=== PATIENT | female | born 1930 | race Caucasian/White ===

== ENCOUNTER 2017-11-04 15:07 | Emergency (ER) | END 2017-11-04 16:55 | disposition home or self-care (01) ==

== ENCOUNTER 2017-12-05 00:19 | Inpatient (IN) | END 2017-12-12 16:35 | DRG 190 ==

== ENCOUNTER 2018-04-02 16:38 | Inpatient (IN) | payer MEDICARE ==
[~2018-04-02] VITALS: Ht 142.2 cm; Wt 58.8 kg
[~2018-04-02 16:38] MED LIST: ALBU18HF INHALATION; ALPR0.5T6 PO; ANAS1TAB PO; ASPI-817 PO; DEXT1DRO6 OP; DOCU100T PO; DONE5TAB7 PO; LISI-313 PO; MEMA10TA PO; METO-448 PO; MONT10TA24 PO; NITR0.4T32 SL; OXYB5TAB7 PO; PANT40TA4 PO; PARO10TA76 PO; Polyethylene Glycol PO; QUET25TA33 PO
[2018-04-02] MEDS ORDERED: SODIUM CHLORIDE 0.9% 1L BAG IV* STA (16:56)
--- NOTE | 2018-04-02 17:09 | ERD ---
ER Documentation Chief Complaint Chief Complaint HPI This is an 88-year-old female that presents to the emergency department brought in by EMS from her boarding care facility for changes in her mental status. [facility] stated the patient appeared more weak. Over the past 24 hours she had a decrease in appetite. She had decreased urinary output. She is taking 25 mg of Seroquel daily for schizoaffective disorder and paranoia which has worsened according to nursing staff. The patient has a history of congesti ve heart failure hypertension and takes aspirin on a daily basis. There is been no signs of mechanical falls or trauma. The patient is no complaint of chest pain. She had no fevers or shaking or chills. Reviewing previous medical records the patient also has a history of COPD and the patient has not had a productive or nonproductive cough. Her son indicates that she has a history of breast carcinoma. She received IV injections at [facility] and last injection was 2 weeks prior to arrival. She is currently taking oral chemotherapy pills. She has not complained of any shortness of breath. She is complaining of right hip pain. She states this is been present since Thursday which was her birthday, 3 days prior to arrival. The patient has a history of dementia so her son indicates she is a poor historian and there is no [facility]. Her son indicated an x-ray had been performed and they were told by the physician that there is no evidence of a hip fracture. However the patient still complains of right hip pain. ROS All systems reviewed and are negative except as per history of present illness. Medications Home Meds Active Scripts Nitroglycerin* (Nitroglycerin* SL) 0.4 Mg Tab.subl, 1 TAB SL Q5M PRN for CHEST PAIN, #30 TAB Prov:PRESLEY MOSQUEDA 12/09/17 Lisinopril* (Lisinopril*) 5 Mg Tablet, 5 MG PO DAILY, #30 TAB Prov:PRESLEY MOSQUEDA 12/09/17 Reported Medications Acetaminophen (MAPAP) 325 Mg Tablet, 650 MG PO NEEDED, TAB 04/02/18 Furosemide* (Furosemide*) 40 Mg Tablet, 40 MG PO DAILY, TAB 04/02/18 Multivitamin/Iron/Folic Acid (Cerovite Advanced Form Tab) 1 Each Tablet, 1 EACH PO DAILY, TAB 04/02/18 Paroxetine Hcl* (Paroxetine*) 40 Mg Tablet, 40 MG PO BID, TAB 04/02/18 Dextran 70/Hypromellose (Artificial Tears) 1 Each Droperette, 1 EACH OP DAILY 11/04/17 Aspirin* (Aspirin* EC) 81 Mg Tablet.dr, 81 MG PO DAILY, TAB 11/04/17 Montelukast Sodium* (Montelukast Sodium*) 10 Mg Tablet, 10 MG PO QHS, #30 TAB 11/04/17 Donepezil* (Donepezil*) 5 Mg Tablet, 5 MG PO DAILY, #30 TAB 11/04/17 Memantine* (Namenda*) 10 Mg Tablet, 10 MG PO DAILY, #30 TAB 11/04/17 Oxybutynin Chloride* (Ditropan*) 5 Mg Tablet, 5 MG PO DAILY, TAB 11/04/17 Pantoprazole* (Pantoprazole*) 40 Mg Tablet.dr, 40 MG PO AC BREAKFAST DINNER, TAB 11/04/17 Anastrozole* (Arimidex*) 1 Mg Tablet, 1 MG PO DAILY, #30 TAB 11/04/17 Docusate Sodium* (Dok*) 100 Mg Tablet, 100 MG PO BID, #60 CAP 11/04/17 Quetiapine Fumarate* (Quetiapine Fumarate*) 25 Mg Tablet, 25 MG PO BID, TAB 11/04/17 Alprazolam* (Alprazolam*) 0.5 Mg Tablet, 0.5 MG PO BID PRN for ANXIETY, TAB 11/04/17 Discontinued Reported Medications [Pantoprazole 10MG] No Conflict Check, 10 MG PO QHS 04/02/18 Paroxetine Hcl* (Paroxetine*) 10 Mg Tablet, 10 MG PO HS, TAB 11/04/17 Discontinued Scripts [Polyethylene Glycol] 17 GM/PKT LIQ No Conflict Check, 17 GM PO BID, #60 PWD Prov:PRESLEY MOSQUEDA 12/09/17 Metoprolol Tartrate* (Lopressor*) 25 Mg Tab, 12.5 MG PO BID, #60 TAB Prov:PRESLEY MOSQUEDA 12/09/17 Albuterol Sulfate* (Ventolin HFA*) 18 Gm Hfa.aer.ad, 2 PUFF INHALATION Q4H, #1 INHALER Prov:LAN TRACY MD 11/04/17 Allergies Allergies: Coded Allergies: epinephrine (Unverified Allergy, Unknown, 04/02/18) Uncoded Allergies: ALLERGEN-EPINEPHRINE (Allergy, Unknown, 04/02/18) PMhx/Soc History of Surgery: Yes (hip sgx 2004) Anesthesia Reaction: No Hx Neurological Disorder: Yes ( CVA 2004; R frontal lobe dementia; Tias) Hx Respiratory Disorders: Yes (COPD) Hx Cardiac Disorders: Yes (Mitrovalvular insufficiency) Hx Psychiatric Problems: No Hx Miscellaneous Medical Probl: Yes Hx Alcohol Use: No Hx Substance Use: No Hx Tobacco Use: No Physical Exam Vitals Vital Signs Date Temp Pulse Resp B/P (MAP) Pulse Ox O2 O2 Flow FiO2 Time Delivery Rate 04/02/18 101.0 103 24 111/92 96 17:00 (98) Physical Exam Constitutional:Well-developed. Cachectic HEENT:Normocephalic. Atraumatic.Pupils were equal round reactive to light. Dry mucous membranes.No tonsillar exudates. Neck: No nuchal rigidity. No lymphadenopathy. No posterior cervical spine tenderness or step-offs. Respiratory: Not using accessory muscles of respiration.Lungs were clear to auscultation bilaterally. No rhonchi. No rales. Mild wheezing on end auscultation bilaterally Cardiovascular: Regular rate regular rhythm.No murmurs. No rubs were appreciated.S1, S2 normal. Distal pulses are palpable 2+ bilaterally. GI: Abdomen was soft. Nontender. Non Distended. No pulsatile abdominal masses or bruits. No rebound. No guarding. Bowel sounds were present and normal. Muscle skeletal: Full range of motion of both the upper and lower extremities bilaterally.muscle atrophy of bilateral lower extremities. No assymetrical calf tenderness or swelling. Lower extremities are of equal length and symmetrical no internal or external rotation Skin: No petechia, no purpura. No lesions on the palms or the soles of the feet. No maculopapular rash. Well-circumscribed abrasion on the scalp behind the left ear NEURO: Patient was alert, awake, orientated x to person place but not to time. Gait not observed as patient is unable to ambulate. No facial droop. Result Diagram: 04/02/18 1709 04/02/18 1709 Results 24 hrs Laboratory Tests Test 04/02/18 17:09 04/02/18 17:29 04/02/18 19:14 White Blood Count 11.8 10^3/ul Red Blood Count 4.04 10^6/ul Hemoglobin 10.9 g/dl Hematocrit 33.7 % Mean Corpuscular Volume 83.4 fl Mean Corpuscular Hemoglobin 27.0 pg Mean Corpuscular 32.3 g/dl Hemoglobin Concent Red Cell Distribution Width 15.7 % Platelet Count 319 10^3/UL Mean Platelet Volume 10.3 fl Immature Granulocytes % 0.900 % Neutrophils % 78.5 % Lymphocytes % 11.1 % Monocytes % 9.0 % Eosinophils % 0.2 % Basophils % 0.3 % Nucleated Red Blood Cells % 0.0 /100WBC Immature Granulocytes # 0.110 10^3/ul Neutrophils # 9.3 10^3/ul Lymphocytes # 1.3 10^3/ul Monocytes # 1.1 10^3/ul Eosinophils # 0.0 10^3/ul Basophils # 0.0 10^3/ul Nucleated Red Blood Cells # 0.0 10^3/ul Prothrombin Time 13.3 Sec Prothrombin Time Ratio 1.0 INR International Normalized Ratio 1.00 Activated Partial Thromboplast 35.3 Sec Time Sodium Level 131 mmol/L Potassium Level 3.6 mmol/L Chloride Level 92 mmol/L Carbon Dioxide Level 32 mmol/L Anion Gap 7 Blood Urea Nitrogen 27 mg/dl Creatinine 0.56 mg/dl Est Glomerular Filtrat Rate mL/min mL/min Glucose Level 129 mg/dl Calcium Level 8.9 mg/dl Total Bilirubin 0.3 mg/dl Direct Bilirubin 0.00 mg/dl Indirect Bilirubin 0.3 mg/dl Aspartate Amino Transf (AST/SGOT) 37 IU/L Alanine < 6 IU/L Aminotransferase (ALT/SGPT) Alkaline Phosphatase 136 IU/L Troponin I < 0.012 ng/ml B-Type Natriuretic Peptide 2510 PG/ML Total Protein 7.4 g/dl Albumin 3.5 g/dl Globulin 3.90 g/dl Albumin/Globulin Ratio 0.89 Amylase Level 61 U/L Lipase 82 U/L POC Venous Lactate 1.7 mmol/L Bedside Urine pH (LAB) 6.0 Bedside Urine Protein (LAB) 1+ Bedside Urine Glucose (UA) Negative Bedside Urine Ketones (LAB) Negative Bedside Urine Blood 2+ Bedside Urine Nitrite (LAB) Positive Bedside Urine Leukocyte Esterase 3+ (L Current Medications Medications Dose Sig/Skyler Start Time Status Last (Trade) Ordered Route PRN Stop Time Admin Dose Reason Admin Sodium 1,800 ml BOLUS OVER 2 04/02/18 DC 04/02/18 Chloride HOURS STAT 16:56 17:42 (NS) IV* 04/02/18 16:58 Sodium 1,000 ml @ Q1H STAT 04/02/18 DC Chloride 1,000 mls/hr IV 18:27 04/02/18 19:26 Morphine 2 mg ONCE STAT 04/02/18 DC 04/02/18 Sulfate IV 18:27 19:13 (morphine) 04/02/18 18:31 Ondansetron 4 mg ONCE STAT 04/02/18 DC 04/02/18 HCl (Zofran IV 18:27 19:13 Inj) 04/02/18 18:31 Ceftriaxone 50 ml @ ONCE ONCE 04/02/18 UNV Sodium 100 mls/hr IVPB 19:30 04/02/18 19:59 Procedures/MDM The patient presented to the emergency department with an acute and persistent change in their mental status. The differential diagnosis is diverse however reversible causes such as hypoglycemia, opiate overdose, thiamine deficiency were immediately considered. The patient was placed on a hospital monitor, continuous pulse oximetry and IV access was established. The patients airway was secure however hypoxic events such as anemia, shock, or severe pulmonary disease were all considered as etiologies in this patients presentation. Circulation assessed with good cap refill and did not require fluids or pressure support. Finger stick for rapid glucose determined to be normal. 12 Lead EKG tracing ordered and reviewed by myself showed: Sinus tachycardia 111 bpm and no arrhythmia. NV interval normal. QRS duration normal. No ST segment elevation No ST segment depression. No changes consistent with acute ischemia. The patient did meet Sirs criteria upon arrival however her lactic acid was normal. Therefore the patient was not septic. She did receive gentle fluid hydration of 30 cc/kg of normal saline and there is no evidence of fluid overload. The patient had a chest radiograph that showed interstitial opacities likely secondary to central pulmonary vascular congestion. However the patient was only in mild respiratory distress and did receive nebulizer treatments of albuterol Atrovent. Lasix was not given due to the fact that the patient was hypotensive. The patient had a urinary tract infection. Blood cultures and urine cultures were obtained. The patient was given IV ceftriaxone. I did feel this was a result of the change in her mental status. She was complaining of diffuse pain and was given 2 mg of morphine intravenously and IV Zofran. I spoke with her son in length who can be reached at [phone]. His name is Marvel. He indicated that his mother several days ago also had a possible mechanical fall. He indicates that she has a history of dementia and there was no witness of this fall but was complaining of right hip pain. He stated radiographic imaging have been obtained at her [facility] facility ordered by the primary care cass moody and was found to be normal. Her gait was unable to be observed in the emergency department she still was complaining of right hip pain and therefore obtained a CT scan of the patient's pelvis which showed no evidence of a pelvic fracture right hip fracture. The patient will be admitted in serious condition under the care of the hospitalist. She will go to the medical floor. Departure Diagnosis: Primary Impression: Failure to thrive Failure to thrive age range: in adult Qualified Codes: R62.7 - Adult failure to thrive Additional Impressions: Urinary tract infection Urinary tract infection type: acute cystitis Hematuria presence: without hematuria Qualified Codes: N30.00 - Acute cystitis without hematuria Sprain of right hip Encounter type: initial encounter Qualified Codes: S73.101A - Unspecified sprain of right hip, initial encounter Acute exacerbation of CHF (congestive heart failure) Heart failure type: unspecified Qualified Codes: I50.9 - Heart failure, unspecified Condition: MAULIK Payan MD Apr 02, 2018 17:09
[2018-04-02] MEDS ORDERED: MULT1TAB49 PO (17:57)
[2018-04-02] MEDS ORDERED: PARO40TA79 PO (17:57)
[2018-04-02] MEDS ORDERED: FURO40TA4 PO (17:58)
[2018-04-02] MEDS ORDERED: ACET325T40 PO (17:59)
[2018-04-02] MEDS ORDERED: PANTOPRAZOLE PO (18:00)
[2018-04-02] MEDS ORDERED: morphine 2 MG INJ IV STA (18:27)
[2018-04-02] MEDS ORDERED: SOD CHLORIDE 0.9% 1,000 ML IV STA (18:27)
[2018-04-02] MEDS ORDERED: ONDANSETRON 4 MG INJ IV STA (18:27)
[2018-04-02] MEDS ORDERED: ALBUTEROL 0.083% (NEB) 2.5 MG/3 ML AMP NEB STA (19:27)
[2018-04-02] MEDS ORDERED: IPRATROPIUM (NEB) 0.5 MG/2.5 ML AMP NEB STA (19:27)
[2018-04-02] MEDS ORDERED: ACETAMINOPHEN 500 MG TAB PO STA (19:28)
[2018-04-02] MEDS ORDERED: CEFTRIAXONE 1 GM/50 ML (PMX) 50 ML IVPB ONE (19:30)
[2018-04-02] MEDS ORDERED: ONDANSETRON 4 MG INJ IV PRN (20:00)
[2018-04-02] MEDS ORDERED: NACL 0.9% 3 ML SYG IV SCH (20:00)
[2018-04-02] MEDS ORDERED: ACETAMINOPHEN 325 MG TAB PO PRN (20:00)
[2018-04-02] MEDS ORDERED: NITROGLYCERIN (SL) 0.4 MG TAB SL PRN (20:00)
[2018-04-02 21:18] VITALS: BP 90/49; PULSE 104; RESP 16
--- NOTE | 2018-04-02 21:46 | NUR ---
clarified w/ DR Clements if he wants to administer the NS1L bolus over 1 hour prior to giving NS1L at 60cc/hr. per Dr clements not to administer the NS bolus. noted and carried out
[2018-04-02] MEDS: SOD CHLORIDE 0.9% 1,000 ML IV SCH (21:54)
--- NOTE | 2018-04-02 22:07 | HP ---
Date/Time of Note Date/Time of Note DATE: 04/02/18 TIME: 22:07 Assessment/Plan VTE Prophylaxis Pharmacological prophylaxis: heparin Lines/Catheters IV Catheter Type (from Nrsg): Saline Lock Assessment/Plan Assessment/Plan 1. Sepsis, secondary to UTI -IV antibiotics, IV fluid -Follow-up culture results 2. Breast cancer with possible metastases to lung: Receiving treatment at [facility] and also oral med -Continue anastrozole 3. Cardiomyopathy with EF of 30%: Continue meds 4. Dementia: -Continue donepezil and Namenda -Speech/swallow eval, then nutrition optimization -Supportive care 5. COPD/asthma: Supplemental oxygen, bronchodilators as needed. 6. Schizophrenia/paranoia: Continue Seroquel Result Diagram: 04/02/18 1709 04/02/18 1709 Results 24hrs Laboratory Tests Test 04/02/18 17:09 04/02/18 17:29 04/02/18 19:14 04/02/18 19:48 White Blood Count 11.8 H Red Blood Count 4.04 L Hemoglobin 10.9 L Hematocrit 33.7 L Mean Corpuscular 83.4 Volume Mean Corpuscular 27.0 L Hemoglobin Mean Corpuscular 32.3 Hemoglobin Concent Red Cell 15.7 H Distribution Width Platelet Count 319 Mean Platelet Volume 10.3 Immature 0.900 H Granulocytes % Neutrophils % 78.5 H Lymphocytes % 11.1 L Monocytes % 9.0 Eosinophils % 0.2 Basophils % 0.3 Nucleated Red Blood 0.0 Cells % Immature 0.110 H Granulocytes # Neutrophils # 9.3 H Lymphocytes # 1.3 Monocytes # 1.1 H Eosinophils # 0.0 Basophils # 0.0 Nucleated Red Blood 0.0 Cells # Prothrombin Time 13.3 Prothrombin Time 1.0 Ratio INR International 1.00 Normalized Ratio Activated 35.3 H Partial Thromboplast Time Sodium Level 131 L Potassium Level 3.6 Chloride Level 92 L Carbon Dioxide Level 32 H Anion Gap 7 Blood Urea Nitrogen 27 H Creatinine 0.56 Est Glomerular Filtrat Rate mL/min Glucose Level 129 Calcium Level 8.9 Total Bilirubin 0.3 Direct Bilirubin 0.00 Indirect Bilirubin 0.3 Aspartate Amino 37 Transf (AST/SGOT) Alanine < 6 L Aminotransferase (AL T/SGPT) Alkaline Phosphatase 136 H Troponin I < 0.012 B-Type Natriuretic 2510 H Peptide Total Protein 7.4 Albumin 3.5 Globulin 3.90 H Albumin/Globulin 0.89 Ratio Amylase Level 61 Lipase 82 POC Venous Lactate 1.7 1.1 Bedside Urine pH 6.0 (LAB) Bedside Urine 1+ H Protein (LAB) Bedside Urine Negative Glucose (UA) Bedside Urine Negative Ketones (LAB) Bedside Urine Blood 2+ H Bedside Urine Positive H Nitrite (LAB) Bedside Urine 3+ H Leukocyte Esterase (L HPI/ROS Admit Date/Time Admit Date/Time Apr 02, 2018 at 19:47 Hx of Present Illness 88-year-old female with a history of breast cancer receiving treatment at [facility] and also on oral meds, lung nodule, cardiomyopathy with EF of 30%, history of dementia, schizophrenia/paranoia, COPD/asthma who was sent from SNF for worsening mentation, poor appetite and decreased urine. Information is mainly gathered from ER physician. When presented to ER, she was febrile with a temperature as high as 101.6, heart rate as high as 112. WBC 11.8. UA consistent with UTI. Chest x-ray shows mildly increased interstitial opacities with small left pleural effusion. Findings are likely sequelae of central venous congestion. PMH/Family/Social Past Medical History Medications Current Medications Ondansetron HCl (Zofran Inj) 4 mg BRIDGE ORDER PRN IV NAUSEA AND/OR VOMITING; Start 04/02/18 at 20:00; Stop 04/03/18 at 19:59 Sodium Chloride 1,000 ml @ 60 mls/hr [id number] IV Last administered on 04/02/18at 21:54; Admin Dose 60 MLS/HR; Start 04/02/18 at 19:47; Stop 04/03/18 at 23:00 IV Flush (NS 3 ml) 3 ml PER PROTOCOL IV ; Start 04/02/18 at 20:00 Acetaminophen (Tylenol Tab) 650 mg Q6H PRN PO PAIN LEVEL 1-3 OR FEVER; Start 04/02/18 at 20:00 Alprazolam (Xanax) 0.5 mg BID PRN PO ANXIETY; Start 04/02/18 at 20:00 Anastrozole (Arimidex) 1 mg DAILY PO ; Start 04/03/18 at 09:00 Aspirin (Halfprin) 81 mg DAILY PO ; Start 04/03/18 at 09:00 Docusate Sodium (Colace) 100 mg BID PO ; Start 04/02/18 at 21:00 Donepezil HCl (Aricept) 5 mg DAILY PO ; Start 04/03/18 at 09:00 Furosemide (Lasix) 40 mg DAILY PO ; Start 04/03/18 at 09:00 Lisinopril (Zestril) 5 mg DAILY PO ; Start 04/03/18 at 09:00 Memantine (Namenda) 10 mg DAILY PO ; Start 04/03/18 at 09:00 Montelukast Sodium (Singulair) 10 mg QHS PO ; Start 04/02/18 at 21:00 Nitroglycerin (Nitroglycerin (Sl Tab) 0.4 Mg) 1 tab Q5M PRN SL CHEST PAIN; Start 04/02/18 at 20:00 Oxybutynin Chloride (Ditropan) 5 mg DAILY PO ; Start 04/03/18 at 09:00 Pantoprazole (Protonix Tab) 40 mg AC BREAKFAST DINNER PO ; Start 04/03/18 at 07:00 Paroxetine HCl (Paxil) 40 mg BID PO ; Start 04/02/18 at 21:00 Quetiapine Fumarate (Seroquel) 25 mg BID PO ; Start 04/02/18 at 21:00 Ceftriaxone Sodium 50 ml @ 100 mls/hr Q24H IVPB ; Start 04/03/18 at 20:00 Coded Allergies: epinephrine (Unverified Allergy, Unknown, 04/02/18) Uncoded Allergies: ALLERGEN-EPINEPHRINE (Allergy, Unknown, 04/02/18) Family History Significant Family History: hypertension Social History Alcohol Use: none Smoking Status: Never smoker Drug Use: none Exam/Review of Systems Vital Signs Vitals Vital Signs Date Temp Pulse Resp B/P (MAP) Pulse Ox O2 O2 Flow FiO2 Time Delivery Rate 04/02/18 98.8 104 16 90/49 (63) 95 21:18 04/02/18 Nasal 2.0 20:46 Cannula 04/02/18 21 19:38 Exam Exam Constitutional: alert, oriented, well developed, other Head: normocephalic, atraumatic Respiratory: normal air movement Cardiovascular: regular rate and rhythm Gastrointestinal: soft Extremities: normal pulses PMH: see HPI PSH: see HPI . SOFIA ORELLANA MD Apr 02, 2018 22:07
[2018-04-02] MEDS: DOCUSATE SODIUM 100 MG CAP PO SCH (22:24)
[2018-04-02] MEDS: QUETIAPINE 25 MG TAB PO SCH (22:24)
[2018-04-02] MEDS: PAROXETINE 20 MG TAB PO SCH (22:24)
[2018-04-02] MEDS: MONTELUKAST 10 MG TAB PO SCH (22:24)
--- NOTE | 2018-04-02 23:00 | NUR ---
pt came from ER at 2100 via bed. alert,oriented x3 ,w/ forgetfulness. pt w/ complaint of pain on right arm , refusing to move right arm.no swelling or wound noted on right arm.pt noted but able to move right hip and right LE. Oriented to staff, call light, bed control, hourly rounding. skin assessment done. Inventory of belongings done. per pt she had a fall a week ago.called and spoke w/ Marvel Lott,pt's son, according to him pt did not have a fall and she was complaining initially of pain on right hip and other medical issues for those reasons she was admitted. but when he came to er he noted she was complaining of right arm pain. Informed him during assessment, pt was noted able to move LE but refusing to move her right arm. per son he does not know since his mom has dementia and at times she is accurate and sometimes not. will continue to monitor
--- NOTE | 2018-04-03 01:55 | NUR ---
pt has an order for CT of pelvis. pt's son ,Marvel ,mention that her mother a week ago was treated for scabies but unknown to him if the treatment was completed. he said to call [facility] where her mother came from to verify.per CT staff they will do the CT after we are able to verify regarding the scabies treatment otherwise,they will have to do thermal cleaning. notified Dr Clements,per MD ok to wait.
[2018-04-03 02:11] VITALS: BP 105/54; PULSE 88; RESP 16
--- NOTE | 2018-04-03 06:42 | NUR ---
pt noted complaining of pain on right arm , refusing to move the affected arm . no swelling or wound noted. Dr Clements made aware, no new orders made. spoke w/ Tamra from [facility]. verified if pt has been treated. Per Tamra , pt came back from [facility] and according to report she was already treated, but she is requesting to test pt for scabies to be sure she was treated before going back to [facility]. According to her pt keeps on scratching herself that is why she got the wound behind her ear, Also , pain on right arm is not new . pt had surgery on right arm and she has chronic pain on right arm. will endorse to dayshift nurse to ask md if he wants to order test for scabies. Also pt still for CT.will endorse accordingly
--- NOTE | 2018-04-03 06:57 | NUR ---
unable to do flu vaccine intervention keith from [facility] does not know if pt received flu vaccine. will endorse to dayshift nurse to ask pt's son, Marvel, if he wants us to give the flu vaccine.
[2018-04-03 07:15] VITALS: BP 122/70; PULSE 109; RESP 18
[2018-04-03] MEDS: PANTOPRAZOLE (EC) 40 MG TAB PO SCH ×2 (08:27→17:21)
[2018-04-03] MEDS: QUETIAPINE 25 MG TAB PO SCH ×2 (08:27→20:53)
[2018-04-03] MEDS: ASPIRIN (EC) 81 MG TAB PO SCH (08:27)
[2018-04-03] MEDS: DONEPEZIL 5 MG TAB PO SCH (08:27)
[2018-04-03] MEDS: MEMANTINE 10 MG TAB PO SCH (08:27)
[2018-04-03] MEDS: DOCUSATE SODIUM 100 MG CAP PO SCH ×2 (08:27→21:00)
[2018-04-03] MEDS: FUROSEMIDE 40 MG TAB PO SCH (08:28)
[2018-04-03] MEDS: LISINOPRIL 5 MG TAB PO SCH (08:28)
[2018-04-03] MEDS: PAROXETINE 20 MG TAB PO SCH ×2 (09:47→20:53)
[2018-04-03] MEDS: OXYBUTYNIN 5 MG TAB PO SCH (09:47)
--- NOTE | 2018-04-03 10:33 | NUR ---
SS Note: SS Consult SWer attempted tp contact pt's son, Marvel Lott , to clarify he and his family members disposition re his mother's Code Status. SWer was unsuccessful in reaching Marvel b/c his voicemail is full thus a message could not be left for him to call back and clarify their disposition. SWer will attempt to meet w/ Marvel should he come to the hospital and visit his mother. CM aware
--- NOTE | 2018-04-03 10:50 | NUR ---
WOUND CONSULTATION NOTE: 88-year-old female admitted for sepsis secondary to UTI with history of Breast cancer with possible metastases to lung, Cardiomyopathy with EF of 30%, Dementia, COPD/asthma, and Schizophrenia/paranoia per record. Patient is alert and oriented x1 and becomes agitated and cries out when attempted to move. There is a questionable right upper extremity soft immobilizer, patient states she broke her arm but no evidence per medical record. Incontinent of bowel and bladder without Galeas catheter. Currently on nasal cannula, requires max assist to turn and reposition. Of note, patient was last seen by [facility] on December 10, 2017 ASSESSMENT: 1. Sacrococcyx - Intact Deep tissue pressure injury with incontinence-associated dermatitis and surrounding stage 1 Pressure Injury in the periwound. Condition is present on admission approx 1.5x6.5x0 2. Multiple bilateral lower extremity including right shoulder blade dry abrasions, unknown etiology. 3. Left Neck, circular dry scabbed full thickness wound with unknown etiology, condition present on admission. 4. Left inner corner of mouth, small abrasion without exudate, unknown etiology 5. Bilateral heels intact RECOMMENDATION: -Cleanse sacrococcyx and periwound with mild soap and water, and pat dry. Apply Venelex ointment BID and cover with foam border dressing -Apply moisture barrier cream after cleansing to perineum after every incontinent episode -Recommend low air loss mattress placement -Apply foam border padding to nasal cannula behind the ears while on oxygen -Continue turning and repositioning Every 2 hours and PRN -Elevate heels on pillows at all times -Keep HOB >30 degrees unless medically contraindicated Patient was seen and evaluated and recommendations discussed with primary Vania OSHEA. RN to obtain additional orders from primary MD Tamara Berrios, MSN, RN, CCRN, C
--- NOTE | 2018-04-03 11:08 | NUR ---
RN Notes: Spoke to Mirza Grier regarding chemo med per son pt's is taking chemo meds for more than 1/1/2 year already said that they go to [facility] for IV and PO chemo meds, per son he's aware and understand the possible S/E. Called [facility] spoke to DAYO Hall aware regarding the initial dose of chemo med in the unit will come for initial dose of the medication. Also follow with mirza Grier re. FLU vaccine said he does not know if pt received FLU Vaccine already said he will call pt's doctor on Thursday to verify it. Will endorse accordingly.
[2018-04-03] MEDS: ANASTROZOLE 1 MG TAB PO SCH (11:17)
[2018-04-03] MEDS: SOD CHLORIDE 0.9% 1,000 ML IV SCH ×2 (12:08→14:25)
[2018-04-03 14:59] VITALS: BP 116/49; PULSE 99; RESP 18
--- NOTE | 2018-04-03 15:01 | NUR ---
RN Notes: Called CT Scan dept spoke to Molly to verify the time of CT Scan order, per Molly due to pt has R/O scabies they need to do precaution since order was routine they will do the urgent order first and will call us once they have time for the test.
[2018-04-03] MEDS: ACETAMINOPHEN 325 MG TAB PO PRN ×2 (15:17→23:06)
--- NOTE | 2018-04-03 15:52 | PN ---
Date/Time of Note Date/Time of Note DATE: 04/03/18 TIME: 15:44 Assessment/Plan VTE [place] [facility] [place]: 7 [place] [facility] [place] Yes Pharmacological prophylaxis: heparin Lines/Catheters IV Catheter Type (from [facility]): Peripheral IV Urinary Cath still in place: No Assessment/Plan Problems: (1) UTI (urinary tract infection) Status: Acute Comment: This is a gram-negative ortega final sensitivity and identification is pending. Please note the patient also had a history of scabies reportedly treated. We will go ahead and repeat the scraping on this. Qualifiers: Urinary tract infection type: acute cystitis Hematuria presence: without hematuria Qualified Codes: N30.00 - Acute cystitis without hematuria (2) Failure to thrive Status: Acute Comment: Improving now that we have her back on medicines and treating the antibiotics Qualifiers: Failure to thrive age range: in adult Qualified Codes: R62.7 - Adult failure to thrive (3) Frontal lobe dementia Status: Chronic Comment: At this point she probably is not able to be maintained in a [id number] needs a higher level of residents. I will have the social sciences lecturer speak with the family (4) Biventricular CHF (congestive heart failure) Status: Chronic Comment: Adequately controlled and compensated at this time (5) Asthma-COPD overlap syndrome Status: Chronic Comment: Maintain medication therapy (6) History of breast cancer in adulthood Status: Chronic Comment: Maintain treatment with aromatase inhibitor Result Diagram: 04/03/18 0432 04/03/18 0432 Results 24hrs Laboratory Tests Test 04/02/18 17:09 04/02/18 17:29 04/02/18 19:14 04/02/18 19:48 White Blood Count 11.8 H Red Blood Count 4.04 L Hemoglobin 10.9 L Hematocrit 33.7 L Mean Corpuscular 83.4 Volume Mean Corpuscular 27.0 L Hemoglobin Mean Corpuscular 32.3 Hemoglobin Concen t Red Cell 15.7 H Distribution Width Platelet Count 319 Mean Platelet 10.3 Volume Immature 0.900 H Granulocytes % Neutrophils % 78.5 H Lymphocytes % 11.1 L Monocytes % 9.0 Eosinophils % 0.2 Basophils % 0.3 Nucleated Red 0.0 Blood Cells % Immature 0.110 H Granulocytes # Neutrophils # 9.3 H Lymphocytes # 1.3 Monocytes # 1.1 H Eosinophils # 0.0 Basophils # 0.0 Nucleated Red 0.0 Blood Cells # Prothrombin Time 13.3 Prothrombin Time 1.0 Ratio INR International 1.00 Normalized Ratio Activated 35.3 H Partial Thrombopl ast Time Sodium Level 131 L Potassium Level 3.6 Chloride Level 92 L Carbon Dioxide 32 H Level Anion Gap 7 Blood Urea 27 H Nitrogen Creatinine 0.56 Est Glomerular Filtrat Rate mL/min Glucose Level 129 Calcium Level 8.9 Total Bilirubin 0.3 Direct Bilirubin 0.00 Indirect 0.3 Bilirubin Aspartate Amino 37 Transf (AST/SGOT) Alanine < 6 L Aminotransferase (ALT/SGPT) Alkaline 136 H Phosphatase Troponin I < 0.012 B-Type 2510 H Natriuretic Peptide Total Protein 7.4 Albumin 3.5 Globulin 3.90 H Albumin/Globulin 0.89 Ratio Amylase Level 61 Lipase 82 POC Venous 1.7 1.1 Lactate Bedside Urine pH 6.0 (LAB) Bedside Urine 1+ H Protein (LAB) Bedside Urine Negative Glucose (UA) Bedside Urine Negative Ketones (LAB) Bedside Urine 2+ H Blood Bedside Urine Positive H Nitrite (LAB) Bedside Urine 3+ H Leukocyte Esteras e (L Test 04/02/18 23:18 04/02/18 23:56 04/03/18 04:32 Lactic Acid Level 1.4 Urine Color YELLOW Urine Clarity SLIGHTLY CLOUDY A Urine pH 6.0 Urine Specific 1.013 [place] Urine Ketones NEGATIVE Urine Nitrite POSITIVE A Urine Bilirubin NEGATIVE Urine NEGATIVE Urobilinogen Urine Leukocyte TRACE A Esterase Urine Microscopic 1 RBC Urine Microscopic 10 H WBC Urine Squamous FEW Epithelial Cells Urine Mucus FEW A Urine Hemoglobin 1+ H Urine Glucose NEGATIVE Urine Total NEGATIVE Protein White Blood Count 9.7 Red Blood Count 3.79 L Hemoglobin 10.1 L Hematocrit 32.1 L Mean Corpuscular 84.7 Volume Mean Corpuscular 26.6 L Hemoglobin Mean Corpuscular 31.5 L Hemoglobin Concen t Red Cell 15.9 H Distribution Width Platelet Count 272 Mean Platelet 10.3 Volume Immature 0.800 H Granulocytes % Neutrophils % 76.5 Lymphocytes % 10.4 L Monocytes % 11.5 H Eosinophils % 0.5 Basophils % 0.3 Nucleated Red 0.0 Blood Cells % Immature 0.080 H Granulocytes # Neutrophils # 7.4 Lymphocytes # 1.0 Monocytes # 1.1 H Eosinophils # 0.1 Basophils # 0.0 Nucleated Red 0.0 Blood Cells # Sodium Level 136 Potassium Level 3.1 L Chloride Level 96 L Carbon Dioxide 31 Level Anion Gap 9 Blood Urea 16 # Nitrogen Creatinine 0.51 Est Glomerular Filtrat Rate mL/min Glucose Level 112 Calcium Level 8.3 L Phosphorus Level 2.7 Magnesium Level 2.1 Total Bilirubin 0.1 L Direct Bilirubin 0.00 Indirect 0.1 Bilirubin Aspartate Amino 21 Transf (AST/SGOT) Alanine 9 L Aminotransferase (ALT/SGPT) Alkaline 119 Phosphatase Total Protein 6.6 Albumin 3.0 L Globulin 3.60 H Albumin/Globulin 0.83 Ratio Subjective 24 Hr Interval Summary Free Text/Dictation Patient has a baseline dementia. Constitutional: no complaints Exam/Review of Systems Vital Signs Vitals Vital Signs Date Temp Pulse Resp B/P (MAP) Pulse Ox O2 O2 Flow FiO2 Time Delivery Rate 04/03/18 100.8 15:17 04/03/18 99 18 116/49 94 Nasal 14:59 (71) Cannula 04/03/18 2.0 09:58 04/02/18 21 19:38 Intake and Output 04/02/18 04/02/18 04/03/18 1515:00 23:00 07:00 IntakeIntake Total 50 ml 420 ml BalanceBalance 50 ml 420 ml Exam Constitutional: alert Neck: supple, non-tender Respiratory: normal air movement, crackles/rales Cardiovascular: regular rate and rhythm, nl pulses, other Medications Medications Current Medications Ondansetron HCl (Zofran Inj) 4 mg BRIDGE ORDER PRN IV NAUSEA AND/OR VOMITING; Start 04/02/18 at 20:00; Stop 04/03/18 at 19:59 Sodium Chloride 1,000 ml @ 60 mls/hr [id number] IV Last administered on 04/03/18at 14:25; Admin Dose 60 MLS/HR; Start 04/02/18 at 19:47; Stop 04/03/18 at 23:00 IV Flush (NS 3 ml) 3 ml PER PROTOCOL IV ; Start 04/02/18 at 20:00 Acetaminophen (Tylenol Tab) 650 mg Q6H PRN PO PAIN LEVEL 1-3 OR FEVER Last administered on 04/03/18at 15:17; Admin Dose 650 MG; Start 04/02/18 at 20:00 Alprazolam (Xanax) 0.5 mg BID PRN PO ANXIETY; Start 04/02/18 at 20:00 Anastrozole (Arimidex) 1 mg DAILY PO Last administered on 04/03/18 11:17; Admin Dose 1 MG; Start 04/03/18 at 09:00 Aspirin (Halfprin) 81 mg DAILY PO Last administered on 04/03/18 08:27; Admin D ose 81 MG; Start 04/03/18 at 09:00 Docusate Sodium (Colace) 100 mg BID PO Last administered on 04/03/18 08:27; Admin Dose 100 MG; Start 04/02/18 at 21:00 Donepezil HCl (Aricept) 5 mg DAILY PO Last administered on 04/03/18 08:27; Admin Dose 5 MG; Start 04/03/18 at 09:00 Furosemide (Lasix) 40 mg DAILY PO Last administered on 04/03/18 08:28; Admin Dose 40 MG; Start 04/03/18 at 09:00 Lisinopril (Zestril) 5 mg DAILY PO Last administered on 04/03/18 08:28; Admin Dose 5 MG; Start 04/03/18 at 09:00 Memantine (Namenda) 10 mg DAILY PO Last administered on 04/03/18 08:27; Admin Dose 10 MG; Start 04/03/18 at 09:00 Montelukast Sodium (Singulair) 10 mg QHS PO Last administered on 04/02/18 22:2 4; Admin Dose 10 MG; Start 04/02/18 at 21:00 Nitroglycerin (Nitroglycerin (Sl Tab) 0.4 Mg) 1 tab Q5M PRN SL CHEST PAIN; Start 04/02/18 at 20:00 Oxybutynin Chloride (Ditropan) 5 mg DAILY PO Last administered on 04/03/18 09:47; Admin Dose 5 MG; Start 04/03/18 at 09:00 Pantoprazole (Protonix Tab) 40 mg AC BREAKFAST DINNER PO Last administered on 04/03/18 08:27; Admin Dose 40 MG; Start 04/03/18 at 07:00 Paroxetine HCl (Paxil) 40 mg BID PO Last administered on 04/03/18 09:47; Admin Dose 40 MG; Start 04/02/18 at 21:00 Quetiapine Fumarate (Seroquel) 25 mg BID PO Last administered on 04/03/18at 08:27; Admin Dose 25 MG; Start 04/02/18 at 21:00 Ceftriaxone Sodium 50 ml @ 100 mls/hr Q24H IVPB ; Start 04/03/18 at 20:00 SUZIE MATHEW MD Apr 03, 2018 15:52
--- NOTE | 2018-04-03 16:14 | NUR ---
RN Notes: Pt has temp of 100.8 Tylenol adm and rechecked still with temp of 101.2, Dr. Kenney made aware per MD pt has Pyelonephritis and will reevaluate pt. Also MD aware regarding possible Scabies and received order. Pt remains alert and verbally responsive, no sob noted, breathing even and unlabored. Cooling measures rendered. Kept clean and comfortable. Will continue to monitor until the end of the shift. Addendum: 04/03/18 at 1737 by ANTONI HOLT RN Pt had CT Pelvis, result still pending. Will endorse to next shift for continuity of care.
[2018-04-03] MEDS ORDERED: FOSFOMYCIN 3 GM PACKET PO ONE (17:00)
[2018-04-03] MEDS ORDERED: PERMETHRIN 5% 60 GM CR TOP ONE (20:00)
[2018-04-03 20:06] VITALS: BP 125/60; PULSE 81; RESP 18
[2018-04-03] MEDS: CEFTRIAXONE 1 GM/50 ML (PMX) 50 ML IVPB SCH (20:51)
[2018-04-03] MEDS: BALSAM PERU/CASTOR OIL 60 GM TUBE TOP SCH (20:53)
[2018-04-03] MEDS: MONTELUKAST 10 MG TAB PO SCH (20:53)
[2018-04-03 22:43] VITALS: Ht 142.2 cm; Wt 58.8 kg
[2018-04-04] MEDS: ALPRAZOLAM 0.25 MG TAB PO PRN (01:00)
[2018-04-04 02:00] VITALS: BP 139/61; PULSE 80; RESP 17
[2018-04-04] MEDS: PANTOPRAZOLE (EC) 40 MG TAB PO SCH ×2 (06:36→16:59)
--- NOTE | 2018-04-04 06:45 | NUR ---
RN Notes Patient had no change in condition overnight. Administered Tylenol x 1 for patient's complaint of right hip pain; patient had no further complaints of pain except when repositioned. CT to pelvis done yesterday is negative for fx. Patient has history of right hip and right shoulder sx. Patient's vital signs, including oxygen saturation on room air, within normal limits. Treatment to sacrococcyx DTI done per orders [facility] Applied Elimite ointment to patient's body for possible scabies, will endorse accordingly to next shift's RN for continuity of care.
--- NOTE | 2018-04-04 07:43 | NUR ---
Was sleeping during shift report. Awake now. No questions or needs except cold. Gave warm blanket. Wants to sleep more. Will assess later.
[2018-04-04 08:06] VITALS: BP 102/67; PULSE 87; RESP 18
[2018-04-04] MEDS: ACETAMINOPHEN 325 MG TAB PO PRN (08:54)
[2018-04-04] MEDS: LISINOPRIL 5 MG TAB PO SCH ×2 (09:00→16:59)
--- NOTE | 2018-04-04 09:15 | NUR ---
Patient is DNR status. Spoke to Marvel, has [place], requested him to send paper works. Gave him [place] fax numbers. He added okay for all his siblings ( Dorita, Gaye, Magno and Cory) to inquire about patient's condition.
[2018-04-04] MEDS: FUROSEMIDE 40 MG TAB PO SCH (09:20)
[2018-04-04] MEDS: PAROXETINE 20 MG TAB PO SCH ×2 (09:20→21:35)
[2018-04-04] MEDS: ASPIRIN (EC) 81 MG TAB PO SCH (09:20)
[2018-04-04] MEDS: DOCUSATE SODIUM 100 MG CAP PO SCH ×2 (09:20→21:35)
[2018-04-04] MEDS: MEMANTINE 10 MG TAB PO SCH (09:20)
[2018-04-04] MEDS: QUETIAPINE 25 MG TAB PO SCH ×2 (09:21→21:35)
[2018-04-04] MEDS: OXYBUTYNIN 5 MG TAB PO SCH (09:21)
[2018-04-04] MEDS: DONEPEZIL 5 MG TAB PO SCH (09:21)
[2018-04-04] MEDS: BALSAM PERU/CASTOR OIL 60 GM TUBE TOP SCH ×2 (09:22→21:35)
[2018-04-04] MEDS: ANASTROZOLE 1 MG TAB PO SCH (09:25)
--- NOTE | 2018-04-04 10:13 | NUR ---
SS Note SWer succeeded in contacting pt's son, Marvel Lott in the presence of CN re POA and Healthcare Decision making process. Marvel informed SWer/CN that a copy of the DPOA was submitted to staff during his mother's previous admission and the Code Status is DNR. Marvel consented to current tx plan and procedures MD's wish to conduct and agreed to provide the CN w/ a copy of the DPOA. CM aware, SWer to remain available for f/u and assistance as needed.
--- NOTE | 2018-04-04 11:36 | NUR ---
Dr. Kenney is here. Advised of complaint of severe right shoulder and right hip pain. Addendum: 04/04/18 at 1145 by LILIYA GREEN RN Also advised that Lucia was held this am. Iu=[id number].
--- NOTE | 2018-04-04 11:54 | PN ---
Date/Time of Note Date/Time of Note DATE: 04/04/18 TIME: 11:47 Assessment/Plan VTE Prophylaxis [place] [facility] [place] risk: 7 SCD applied ([place] [facility] [place] Yes Pharmacological prophylaxis: heparin Lines/Catheters IV Catheter Type (from [facility]): Peripheral IV Urinary Cath still in place: No Assessment/Plan Problems: (1) UTI (urinary tract infection) Status: Acute Comment: Pseudomonas UTI with multiple sensitivities. Complete 1/3-day of IV antibiotic therapy and then changed to orals for outpatient treatment. I will will discharge tomorrow Qualifiers: Urinary tract infection type: acute cystitis Hematuria presence: without hematuria Qualified Codes: N30.00 - Acute cystitis without hematuria (2) Failure to thrive Status: Acute Comment: Improving. Please note because the patient's complaints of pain and get a recheck x-rays of the arm and also of the thyroid to be thorough Qualifiers: Failure to thrive age range: in adult Qualified Codes: R62.7 - Adult failure to thrive (3) Biventricular CHF (congestive heart failure) Status: Chronic Comment: Stable and compensated on medication (4) Asthma-COPD overlap syndrome Status: Chronic Comment: Stable and compensated on medical therapy (5) Frontal lobe dementia Status: Chronic Comment: Noted and stable. (6) Status post closed fracture of hip Status: Chronic Comment: Noted. Result Diagram: 04/03/1843104/03/18 043 Subjective 24 Hr Interval Summary Free Text/Dictation Patient initially asleep but woke up with minimal prodding Constitutional: no complaints Respiratory: no complaints Cardiovascular: no complaints Musculoskeletal: other (Complains of proximal right thigh pain laterally and some right shoulder and neck pain.) Exam/Review of Systems Vital Signs Vitals Vital Signs Date Temp Pulse Resp B/P (MAP) Pulse Ox O2 O2 Flow FiO2 Time Delivery Rate 04/04/18 98.6 87 18 102/67 95 08:06 (79) 04/04/18 Nasal 02:00 Cannula 04/03/18 2.0 22:50 04/02/18 21 19:38 Intake and Output 04/03/18 04/03/18 04/04/18 1515:00 23:00 07:00 IntakeIntake Total 1650 ml 1010 ml 300 ml BalanceBalance 1650 ml 1010 ml 300 ml Exam Constitutional: alert, oriented Respiratory: clear to auscultation, normal air movement Cardiovascular: regular rate and rhythm, nl pulses Extremities: other (Variable pain that sometimes produces and sometimes does not with direct manipulation) Medications Medications Current Medications IV Flush (NS 3 ml) 3 ml PER PROTOCOL IV ; Start 04/02/18 at 20:00 Acetaminophen (Tylenol Tab) 650 mg Q6H PRN PO PAIN LEVEL 1-3 OR FEVER Last administered on 04/04/18 08:54; Admin Dose 650 MG; Start 04/02/18 at 20:00 Alprazolam (Xanax) 0.5 mg BID PRN PO ANXIETY Last administered on 04/04/18 01:00; Admin Dose 0.5 MG; Start 04/02/18 at 20:00 Anastrozole (Arimidex) 1 mg DAILY PO Last administered on 04/04/18 09:25; A dmin Dose 1 MG; Start 04/03/18 at 09:00 Aspirin (Halfprin) 81 mg DAILY PO Last administered on 04/04/18 09:20; Admin Dose 81 MG; Start 04/03/18 at 09:00 Docusate Sodium (Colace) 100 mg BID PO Last administered on 04/04/18 09:20; Admin Dose 100 MG; Start 04/02/18 at 21:00 Donepezil HCl (Aricept) 5 mg DAILY PO Last administered on 04/04/18 09:21; Admin Dose 5 MG; Start 04/03/18 at 09:00 Furosemide (Lasix) 40 mg DAILY PO Last administered on 04/04/18 09:20; Admin Dose 40 MG; Start 04/03/18 at 09:00 Lisinopril (Zestril) 5 mg DAILY PO Last administered on 04/03/18 08:28; Admin Dose 5 MG; Start 04/03/18 at 09:00 Memantine (Namenda) 10 mg DAILY PO Last administered on 04/04/18 09:20; Admin Dose 10 MG; Start 04/03/18 at 09:00 Montelukast Sodium (Singulair) 10 mg QHS PO Last administered on 04/03/18 20:53; Admin Dose 10 MG; Start 04/02/18 at 21:00 Nitroglycerin (Nitroglycerin (Sl Tab) 0.4 Mg) 1 tab Q5M PRN SL CHEST PAIN; Start 04/02/18 at 20:00 Oxybutynin Chloride (Ditropan) 5 mg DAILY PO Last administered on 04/04/18at 09:21; Admin Dose 5 MG; Start 04/03/18 at 09:00 Pantoprazole (Protonix Tab) 40 mg AC BREAKFAST DINNER PO Last administered on 04/04/18at 06:36; Admin Dose 40 MG; Start 04/03/18 at 07:00 Paroxetine HCl (Paxil) 40 mg BID PO Last administered on 04/04/18at 09:20; Admin Dose 40 MG; Start 04/02/18 at 21:00 Quetiapine Fumarate (Seroquel) 25 mg BID PO Last administered on 04/04/18at 09:21; Admin Dose 25 MG; Start 04/02/18 at 21:00 Ceftriaxone Sodium 50 ml @ 100 mls/hr Q24H IVPB Last administered on 04/03/18at 20:51; Admin Dose 100 MLS/HR; Start 04/03/18 at 20:00 Potassium Chloride (Klor-Con 20) 40 meq BID PO ; Start 04/04/18 at 12:00; Stop 04/05/18 at 11:59; Status SUZIE AGUILAR MD Apr 04, 2018 11:54
[2018-04-04 14:29] VITALS: BP 126/65; RESP 16
[2018-04-04] MEDS: POTASSIUM CHLORIDE (SR) 20 MEQ TAB PO SCH ×2 (14:30→21:45)
--- NOTE | 2018-04-04 15:59 | NUR ---
Nutrition Notes: Pt from SNF, goes to [facility] for tx for breast ca. PO poor-fair 25-50%. RD Recommendation: 1. If medically feasible, recommend appetite stimulant
--- NOTE | 2018-04-04 17:27 | NUR ---
End of shift- No fever this shift. Tylenol given once. Has pain in right arm and right hip when moved but then all right. Pending additional xrays.
--- NOTE | 2018-04-04 18:47 | NUR ---
Notifed radiology (Calvin) that xrays still need to be done.
[2018-04-04 20:00] VITALS: BP 102/54; PULSE 86; RESP 18
[2018-04-04] MEDS: CEFTRIAXONE 1 GM/50 ML (PMX) 50 ML IVPB SCH (21:34)
[2018-04-04] MEDS: MONTELUKAST 10 MG TAB PO SCH (21:35)
[2018-04-05 02:00] VITALS: BP 102/60; PULSE 102; RESP 16
--- NOTE | 2018-04-05 05:48 | NUR ---
RN Notes No changes in patient's condition overnight. Patient continues to complain of pain to right hip and shoulder, only upon repositioning. Patient's oxygen saturation remained within normal limits, for patient, on room air. No respiratory distress observed. Repositioned patient every two hours and provided incontinent care as needed. Safety/isolation precautions observed, patient's bed at lowest position with bed alarm activated; hourly rounding provided.
[2018-04-05] MEDS: PANTOPRAZOLE (EC) 40 MG TAB PO SCH ×2 (06:18→17:05)
[2018-04-05] MEDS: LEVOFLOXACIN 500 MG TAB PO SCH (06:18)
[2018-04-05] MEDS: ANASTROZOLE 1 MG TAB PO SCH (08:34)
[2018-04-05] MEDS: DOCUSATE SODIUM 100 MG CAP PO SCH ×2 (08:35→20:48)
[2018-04-05] MEDS: PAROXETINE 20 MG TAB PO SCH ×2 (08:36→20:48)
[2018-04-05] MEDS: ASPIRIN (EC) 81 MG TAB PO SCH (08:36)
[2018-04-05 08:37] VITALS: BP 125/62; PULSE 102; RESP 17
[2018-04-05] MEDS: DONEPEZIL 5 MG TAB PO SCH (08:37)
[2018-04-05] MEDS: QUETIAPINE 25 MG TAB PO SCH ×2 (08:37→20:47)
[2018-04-05] MEDS: OXYBUTYNIN 5 MG TAB PO SCH (08:37)
[2018-04-05] MEDS: MEMANTINE 10 MG TAB PO SCH (08:38)
[2018-04-05] MEDS: FUROSEMIDE 40 MG TAB PO SCH (08:39)
[2018-04-05] MEDS: BALSAM PERU/CASTOR OIL 60 GM TUBE TOP SCH ×2 (08:40→20:48)
[2018-04-05] MEDS: LISINOPRIL 5 MG TAB PO SCH (08:51)
[2018-04-05 14:52] VITALS: BP 99/54; PULSE 100; RESP 18
--- NOTE | 2018-04-05 17:34 | PN ---
Date/Time of Note Date/Time of Note DATE: 04/05/18 TIME: 17:33 Assessment/Plan VTE Prophylaxis Risk score (from [facility])>0 risk: 8 SCD applied (from [facility]): Yes Pharmacological prophylaxis: heparin Lines/Catheters IV [facility] (from [facility] Saline Lock Urinary Cath still in place: No Assessment/Plan Hospital Course SUBJECTIVE: Patient is showing pursed lip breathing. Complains of right hip pain. OBJECTIVE: Physical Exam General: Adequately build 87 year-old female lying in bed in mild respiratory distress. HEENT: Normocephalic, atraumatic. Eyes: Anicteric sclerae, conjunctivae clear. ENT: Nasal septum midline, oral mucosa is dry. Respiratory: Bilaterally diminished breath sounds. Hyperpnea. Pursed lip breathing. Cardiovascular: S1, S2 heard. Regular rate and rhythm. Abdomen: Soft and non-distended. Bowel sounds positive in all 4 quadrants. Genitourinary: Deferred. Extremities: No cyanosis, no edema. Peripheral pulses palpable. Neurologic: The patient is awake and alert. Oriented to place and person. Skin: Normal skin turgor. No skin rashes. Labs & Vitals per chart ASSESSMENT & PLAN 87-year-old female with comorbidities including dementia, asthma, breast cancer who was at a [facility] facility and was brought to the emergency room secondary to sepsis with leukocytosis, febrile illness, and tachycardia, secondary to underlying urinary tract infection. 1. Sepsis with leukocytosis, febrile illness, tachycardia, secondary to underlying urinary tract infection, present on admission. -Continue antimicrobials as per sensitivities. 2. Acute respiratory failure. -Hypoxic. -Most probably secondary to underlying asthma exacerbation. -Continue supplemental oxygen. -Continue inhaled bronchodilators and leukotriene inhibitors. 3. Breast cancer. -Continue Arimidex. 4. Irregular nodule with spiculated borders within the left upper lobe measuring 2.51.8 cm. -Possible neoplastic disease, provided the patient's underlying history of breast cancer. 5. Cardiomyopathy. -Left ventricular ejection fraction of 30% with severe global left ventricular systolic dysfunction and severe right ventricular hypokinesis. -Cardiology following. -Continue CLEMENTINE if BP permits. 6. Diabetes mellitus. -?newly diagnosed. -Hemoglobin A1C from November 2017 6.7. -Random blood glucose within normal limits. 7. Normocytic anemia. -Monitor H&H closely. 8. Dementia. -Continue memantine. 9. Fluids, electrolytes, and nutrition. -Mechanical soft diet. 10. DVT prophylaxis. -SQ heparin. 11. Plan. -Continue supplemental oxygen. -Continue inhaled bronchodilators. -Continue antimicrobials as per sensitivities. -The patient is a DNR/DNI. Plan is to discharge the patient with a [facility] facility. The patient was seen in collaboration with Dr. Leach. The plan of care was explained to the patient's son who was at the bedside. Result Diagram: 04/05/18 0603 04/05/18 0603 Results 24hrs Laboratory Tests Test 04/05/18 06:03 White Blood Count 11.3 H Red Blood Count 3.58 L Hemoglobin 9.7 L Hematocrit 29.8 L Mean Corpuscular Volume 83.2 Mean Corpuscular Hemoglobin 27.1 L Mean Corpuscular Hemoglobin Concent 32.6 Red Cell Distribution Width 15.5 H Platelet Count 329 # Mean Platelet Volume 9.3 Immature Granulocytes % 3.100 H Neutrophils % 74.4 Lymphocytes % 12.0 L Monocytes % 9.1 Eosinophils % 1.0 Basophils % 0.4 Nucleated Red Blood Cells % 0.0 Immature Granulocytes # 0.350 H Neutrophils # 8.4 H Lymphocytes # 1.4 Monocytes # 1.0 H Eosinophils # 0.1 Basophils # 0.1 Nucleated Red Blood Cells # 0.0 Sodium Level 132 L Potassium Level 3.8 Chloride Level 96 L Carbon Dioxide Level 32 H Anion Gap 4 L Blood Urea Nitrogen 8 Creatinine 0.46 Est Glomerular Filtrat Rate mL/min Glucose Level 105 Calcium Level 8.3 L Magnesium Level 1.8 Exam/Review of Systems Vital Signs Vitals Vital Signs Date Temp Pulse Resp B/P (MAP) Pulse Ox O2 O2 Flow FiO2 Time Delivery Rate 04/05/18 98.9 100 18 99/54 (69) 94 Nasal 14:52 Cannula 04/05/18 2.0 08:00 04/02/18 21 19:38 Intake and Output 04/04/18 04/04/18 04/05/18 1515:00 23:00 07:00 IntakeIntake Total 1920 ml 700 ml 500 ml BalanceBalance 1920 ml 700 ml 500 ml Medications Medications Current Medications IV Flush (NS 3 ml) 3 ml PER PROTOCOL IV ; Start 04/02/18 at 20:00 Acetaminophen (Tylenol Tab) 650 mg Q6H PRN PO PAIN LEVEL 1-3 OR FEVER Last administered on 04/04/18 08:54; Admin Dose 650 MG; Start 04/02/18 at 20:00 Alprazolam (Xanax) 0.5 mg BID PRN PO ANXIETY Last administered on 04/04/18 01:00; Admin Dose 0.5 MG; Start 04/02/18 at 20:00 Anastrozole (Arimidex) 1 mg DAILY PO Last administered on 04/05/18 08:34; Admin Dose 1 MG; Start 04/03/18 at 09:00 Aspirin (Halfprin) 81 mg DAILY PO Last administered on 04/05/18 08:36; Admin Dose 81 MG; Start 04/03/18 at 09:00 Docusate Sodium (Colace) 100 mg BID PO Last administered on 04/05/18 08:35; Admin Dose 100 MG; Start 04/02/18 at 21:00 Donepezil HCl (Aricept) 5 mg DAILY PO Last administered on 04/05/18 08:37; Admin Dose 5 MG; Start 04/03/18 at 09:00 Furosemide (Lasix) 40 mg DAILY PO Last administered on 04/05/18 08:39; Admin Dose 40 MG; Start 04/03/18 at 09:00 Lisinopril (Zestril) 5 mg DAILY PO Last administered on 04/05/18 08:51; Admin Dose 5 MG; Start 04/03/18 at 09:00 Memantine (Namenda) 10 mg DAILY PO Last administered on 04/05/18 08:38; Admin Dose 10 MG; Start 04/03/18 at 09:00 Montelukast Sodium (Singulair) 10 mg QHS PO Last administered on 04/04/18 21:35; Admin Dose 10 MG; Start 04/02/18 at 21:00 Nitroglycerin (Nitroglycerin (Sl Tab) 0.4 Mg) 1 tab Q5M PRN SL CHEST PAIN; Start 04/02/18 at 20:00 Oxybutynin Chloride (Ditropan) 5 mg DAILY PO Last administered on 04/05/18 08:37; Admin Dose 5 MG; Start 04/03/18 at 09:00 Pantoprazole (Protonix Tab) 40 mg AC BREAKFAST DINNER PO Last administered on 04/05/18at 17:05; Admin Dose 40 MG; Start 04/03/18 at 07:00 Paroxetine HCl (Paxil) 40 mg BID PO Last administered on 04/05/18at 08:36; Admin Dose 40 MG; Start 04/02/18 at 21:00 Quetiapine Fumarate (Seroquel) 25 mg BID PO Last administered on 04/05/18at 08:37; Admin Dose 25 MG; Start 04/02/18 at 21:00 Ceftriaxone Sodium 50 ml @ 100 mls/hr Q24H IVPB Last administered on 04/04/18at 21:34; Admin Dose 100 MLS/HR; Start 04/03/18 at 20:00; Stop 04/06/18 at 19:59 Levofloxacin (Levaquin) 500 mg DAILY@06 PO Last administered on 04/05/18at 06:18; Admin Dose 500 MG; Start 04/05/18 at 06:00; Stop 04/12/18 at 05:59 IV Flush (NS 10 ml) 10 ml PRN PRN IV FLUSH LINE; Start 04/05/18 at 14:00 PHILIP EUCEDA NP Apr 05, 2018 17:34
--- NOTE | 2018-04-05 17:59 | NUR ---
RN NOTES No acute change noted all throughout the shift. patient is still noted with poor appetite. Patient was seen by RO Mane upon rounds, notified about the situation and recommended if okay to have appetite stimulant. RO Mane ordered Heparin 5000 units SQ every 8 hours, labs in am, and Megace 400 mg suspension BID. Patient was reposition every 2 hours and as needed. Kept comfortable and safe. Wound care done as ordered. Will continue to monitor.
[2018-04-05 20:00] VITALS: BP 144/66; PULSE 111; RESP 19
[2018-04-05] MEDS: CEFTRIAXONE 1 GM/50 ML (PMX) 50 ML IVPB SCH (20:47)
[2018-04-05] MEDS: MEGESTROL (40 MG/ML) 10ML CUP PO SCH (20:47)
[2018-04-05] MEDS: MONTELUKAST 10 MG TAB PO SCH (20:48)
[2018-04-05] MEDS: ACETAMINOPHEN 325 MG TAB PO PRN (20:49)
[2018-04-05] MEDS: HEPARIN 5,000 UNIT/1 ML VIAL SC SCH (21:08)
[2018-04-06 02:00] VITALS: BP 144/69; PULSE 99; RESP 18
[2018-04-06] MEDS: LEVOFLOXACIN 500 MG TAB PO SCH (06:26)
[2018-04-06] MEDS: PANTOPRAZOLE (EC) 40 MG TAB PO SCH ×2 (06:26→17:55)
[2018-04-06] MEDS: HEPARIN 5,000 UNIT/1 ML VIAL SC SCH ×3 (06:28→21:39)
--- NOTE | 2018-04-06 07:53 | NUR ---
RN Notes Patient had no change in condition overnight. Vital signs within normal limits; no respiratory distress, patient on room air. Will endorse to oncoming RN for continuity of care.
[2018-04-06 07:57] VITALS: BP 129/69; PULSE 87; RESP 18
[2018-04-06] MEDS: PAROXETINE 20 MG TAB PO SCH ×2 (09:14→21:36)
[2018-04-06] MEDS: OXYBUTYNIN 5 MG TAB PO SCH (09:14)
[2018-04-06] MEDS: MEMANTINE 10 MG TAB PO SCH (09:14)
[2018-04-06] MEDS: QUETIAPINE 25 MG TAB PO SCH ×2 (09:14→21:36)
[2018-04-06] MEDS: DOCUSATE SODIUM 100 MG CAP PO SCH ×2 (09:14→21:00)
[2018-04-06] MEDS: MEGESTROL (40 MG/ML) 10ML CUP PO SCH ×2 (09:14→21:36)
[2018-04-06] MEDS: DONEPEZIL 5 MG TAB PO SCH (09:14)
[2018-04-06] MEDS: ASPIRIN (EC) 81 MG TAB PO SCH (09:15)
[2018-04-06] MEDS: ANASTROZOLE 1 MG TAB PO SCH (09:15)
[2018-04-06] MEDS: FUROSEMIDE 40 MG TAB PO SCH (09:15)
[2018-04-06] MEDS: LISINOPRIL 5 MG TAB PO SCH (09:16)
[2018-04-06] MEDS: BALSAM PERU/CASTOR OIL 60 GM TUBE TOP SCH ×2 (09:19→21:37)
--- NOTE | 2018-04-06 10:43 | NUR ---
SNF PLACEMENT: [facility] FAXED CLINICAL INFORMATION [facility] ACCEPTANCE MEDICARE NEEDS 3 QUALIFYING DAYS FOR SNF PLACEMENT/ Addendum: 04/06/18 at 1044 by KATHE DEL ROSARIO CM Amended: Links added.
[2018-04-06] MEDS: ACETAMINOPHEN 325 MG TAB PO PRN (11:14)
--- NOTE | 2018-04-06 13:26 | PN ---
Date/Time of Note Date/Time of Note DATE: 04/06/18 TIME: 13:24 Assessment/Plan VTE Prophylaxis Risk score (from Ns)>0 risk: 3 SCD applied (from Ns): Yes Pharmacological prophylaxis: heparin Lines/Catheters [facility]from [facility] Saline Lock Urinary Cath still in place: No Assessment/Plan Hospital Course SUBJECTIVE: Complains of right hip pain. OBJECTIVE: Physical Exam General: Adequately build 87 year-old female lying in bed in mild respiratory distress. HEENT: Normocephalic, atraumatic. Eyes: Anicteric sclerae, conjunctivae clear. ENT: Nasal septum midline, oral mucosa is dry. Respiratory: Bilaterally diminished breath sounds. Hyperpnea. Pursed lip breathing. Cardiovascular: S1, S2 heard. Regular rate and rhythm. Abdomen: Soft and non-distended. Bowel sounds positive in all 4 quadrants. Genitourinary: Deferred. Extremities: No cyanosis, no edema. Peripheral pulses palpable. Neurologic: The patient is awake and alert. Oriented to place and person. Skin: Normal skin turgor. No skin rashes. Labs & Vitals per chart ASSESSMENT & PLAN 87-year-old female with comorbidities including dementia, asthma, breast cancer who was at a [facility] facility and was brought to the emergency room secondary to sepsis with leukocytosis, febrile illness, and tachycardia, secondary to underlying urinary tract infection. 1. Sepsis with leukocytosis, febrile illness, tachycardia, secondary to underlying urinary tract infection, present on admission. -Continue antimicrobials as per sensitivities. 2. Acute respiratory failure. -Hypoxic. -Most probably secondary to underlying asthma exacerbation. -Continue supplemental oxygen. -Continue inhaled bronchodilators and leukotriene inhibitors. 3. Breast cancer. -Continue Arimidex. 4. Irregular nodule with spiculated borders within the left upper lobe measuri ng 2.51.8 cm. -Possible neoplastic disease, provided the patient's underlying history of breast cancer. 5. Cardiomyopathy. -Left ventricular ejection fraction of 30% with severe global left ventr icular systolic dysfunction and severe right ventricular hypokinesis. -Cardiology following. -Continue ACEI if BP permits. 6. Pre-diabetes. -Hemoglobin A1C 5.9. -Random blood glucose within normal limits. 7. Normocytic anemia. -Monitor H&H closely. 8. Dementia. -Continue memantine. 9. Fluids, electrolytes, and nutrition. -Mechanical soft diet. 10. Moderate protein-calorie malnutrition. -Dietary supplements. 10. DVT prophylaxis. -SQ heparin. 11. Plan. -Continue supplemental oxygen. -Continue inhaled bronchodilators. -Continue antimicrobials as per sensitivities. -The patient is a DNR/DNI. Plan is to discharge the patient with a long-term facility. The patient was seen in collaboration with Dr. Leach. Result Diagram: 04/06/18 0602 04/06/18 0601 Results 24hrs Laboratory Tests Test 04/06/18 06:01 04/06/18 06:02 Sodium Level 134 L Potassium Level 3.7 Chloride Level 93 L Carbon Dioxide Level 36 H Anion Gap 5 Blood Urea Nitrogen 9 Creatinine 0.46 Est Glomerular Filtrat Rate mL/min Glucose Level 121 Hemoglobin A1c 5.9 Calcium Level 8.6 Phosphorus Level 3.4 Magnesium Level 1.9 White Blood Count 11.3 H Red Blood Count 3.68 L Hemoglobin 10.0 L Hematocrit 30.3 L Mean Corpuscular Volume 82.3 Mean Corpuscular Hemoglobin 27.2 L Mean Corpuscular Hemoglobin Concent 33.0 Red Cell Distribution Width 15.5 H Platelet Count 388 Mean Platelet Volume 9.3 Immature Granulocytes % 2.200 H Neutrophils % 75.5 Lymphocytes % 12.0 L Monocytes % 8.1 Eosinophils % 1.9 Basophils % 0.3 Nucleated Red Blood Cells % 0.0 Immature Granulocytes # 0.250 H Neutrophils # 8.5 H Lymphocytes # 1.4 Monocytes # 0.9 Eosinophils # 0.2 Basophils # 0.0 Nucleated Red Blood Cells # 0.0 Exam/Review of Systems Vital Signs Vitals Vital Signs Date Temp Pulse Resp B/P (MAP) Pulse Ox O2 O2 Flow FiO2 Time Delivery Rate 04/06/18 98.2 87 18 129/69 96 07:57 (89) 04/06/18 2.0 00:23 04/05/18 Nasal 21:38 Cannula 04/02/18 21 19:38 Intake and Output 04/05/18 04/05/18 04/06/18 1515:00 23:00 07:00 IntakeIntake Total 340 ml 50 ml BalanceBalance 340 ml 50 ml Medications Medications Current Medications IV Flush (NS 3 ml) 3 ml PER PROTOCOL IV ; Start 04/02/18 at 20:00 Acetaminophen (Tylenol Tab) 650 mg Q6H PRN PO PAIN LEVEL 1-3 OR FEVER Last administered on 04/06/18 11:14; Admin Dose 650 MG; Start 04/02/18 at 20:00 Alprazolam (Xanax) 0.5 mg BID PRN PO ANXIETY Last administered on 04/04/18 01:00; Admin Dose 0.5 MG; Start 04/02/18 at 20:00 Anastrozole (Arimidex) 1 mg DAILY PO Last administered on 04/06/18 09:15; Admin Dose 1 MG; Start 04/03/18 at 09:00 Aspirin (Halfprin) 81 mg DAILY PO Last administered on 04/06/18 09:15; Admin Dose 81 MG; Start 04/03/18 at 09:00 Docusate Sodium (Colace) 100 mg BID PO Last administered on 04/06/18 09:14; Admin Dose 100 MG; Start 04/02/18 at 21:00 Donepezil HCl (Aricept) 5 mg DAILY PO Last administered on 04/06/18 09:14; Admin Dose 5 MG; Start 04/03/18 at 09:00 Furosemide (Lasix) 40 mg DAILY PO Last administered on 04/06/18 09:15; Admin Dose 40 MG; Start 04/03/18 at 09:00 Lisinopril (Zestril) 5 mg DAILY PO Last administered on 04/06/18 09:16; Admin Dose 5 MG; Start 04/03/18 at 09:00 Memantine (Namenda) 10 mg DAILY PO Last administered on 04/06/18 09:14; Admin Dose 10 MG; Start 04/03/18 at 09:00 Montelukast Sodium (Singulair) 10 mg QHS PO Last administered on 04/05/18 20:48; Admin Dose 10 MG; Start 04/02/18 at 21:00 Nitroglycerin (Nitroglycerin (Sl Tab) 0.4 Mg) 1 tab Q5M PRN SL CHEST PAIN; Start 04/02/18 at 20:00 Oxybutynin Chloride (Ditropan) 5 mg DAILY PO Last administered on 04/06/18 09:14; Admin Dose 5 MG; Start 04/03/18 at 09:00 Pantoprazole (Protonix Tab) 40 mg AC BREAKFAST DINNER PO Last administered on 04/06/18 06:26; Admin Dose 40 MG; Start 04/03/18 at 07:00 Paroxetine HCl (Paxil) 40 mg BID PO Last administered on 04/06/18 09:14; Admin Dose 40 MG; Start 04/02/18 at 21:00 Quetiapine Fumarate (Seroquel) 25 mg BID PO Last administered on 04/06/18 09:14; Admin Dose 25 MG; Start 04/02/18 at 21:00 Ceftriaxone Sodium 50 ml @ 100 mls/hr Q24H IVPB Last administered on 04/05/18at 20:47; Admin Dose 100 MLS/HR; Start 04/03/18 at 20:00; Stop 04/06/18 at 19:59 Levofloxacin (Levaquin) 500 mg DAILY@06 PO Last administered on 04/06/18 06:26; Admin Dose 500 MG; Start 04/05/18 at 06:00; Stop 04/12/18 at 05:59 IV Flush (NS 10 ml) 10 ml PRN PRN IV FLUSH LINE; Start 04/05/18 at 14:00 Megestrol Acetate (Megace Susp) 400 mg BID PO Last administered on 04/06/18 09:14; Admin Dose 400 MG; Start 04/05/18 at 21:00 Heparin Sodium (Porcine) (Heparin (5000 Units/1ml)) 5,000 unit Q8 SC Last administered on 04/06/18 06:28; Admin Dose 5,000 UNIT; Start 04/05/18 at 22:00 PHILIP EUCEDA NP Apr 06, 2018 13:26
[2018-04-06 14:46] VITALS: BP 126/62; PULSE 68; RESP 16
--- NOTE | 2018-04-06 15:22 | NUR ---
SS Note: F/U RADAMES received order to clarify who is the DPOA and pt's code status. SW familiar with pt and her family from previous admission on 12/05/17. At that time pt's son Magno Lott and Marvel Lott were both involved in decision making. SW contacted both sons today. Magno stated he is the DPOA for financial and Marvel is the DPOA for healthcare, as he lives closest to the pt. Although, Marvel is the DPOA he communicates with Magno Addendum: 04/06/18 at 1535 by JUAN BOLIVAR and they make medical decisions together. Pt's son Magno lives in [place]. Magno agreed to fax over a copy of DPOA paperwork to include in pt's record. Both sons agree pt's code status is DNR. RADAMES encouraged sonMarvel to complete POLST and to discuss form with attending MD. RADAMES left form in pt's room for their completion. RADAMES notified RN. Pt came from a [facility] facility, however, family feels pt requires extensive care/support at this time and are requesting SNF placement. Please see CM notes regarding SNF placement.
--- NOTE | 2018-04-06 18:54 | NUR ---
All needs met.no acute events.turned the patient q 2 hours.gave tylenol for pain .call light within reach.bed alarm on.she is resting comfortably in bed.
[2018-04-06 20:00] VITALS: BP_SYST 132; BP_SYST 151; BP_DIAS 63; BP_DIAS 67; PULSE 94; PULSE 98; RESP 18
[2018-04-06] MEDS: MONTELUKAST 10 MG TAB PO SCH (21:37)
[2018-04-07 02:00] VITALS: BP 109/71; PULSE 94; RESP 18
--- NOTE | 2018-04-07 06:03 | NUR ---
Pt is alert and oriented x2-3, forgetful. Pt complains of pain on her right side (arm and leg) of the body; repositioning helping with pain management. Pt was able to swallow her meds one by one. No signs of distress noted. Vital signs stable. Will continue monitoring pt.
[2018-04-07] MEDS: LEVOFLOXACIN 500 MG TAB PO SCH (06:40)
[2018-04-07] MEDS: PANTOPRAZOLE (EC) 40 MG TAB PO SCH ×2 (06:41→17:54)
[2018-04-07] MEDS: HEPARIN 5,000 UNIT/1 ML VIAL SC SCH ×3 (06:43→20:54)
[2018-04-07 08:00] VITALS: BP 126/65; PULSE 111; RESP 18
[2018-04-07] MEDS: DOCUSATE SODIUM 100 MG CAP PO SCH ×2 (08:04→20:53)
[2018-04-07] MEDS: FUROSEMIDE 40 MG TAB PO SCH (08:04)
[2018-04-07] MEDS: MEGESTROL (40 MG/ML) 10ML CUP PO SCH ×2 (08:04→20:54)
[2018-04-07] MEDS: ASPIRIN (EC) 81 MG TAB PO SCH (08:04)
[2018-04-07] MEDS: PAROXETINE 20 MG TAB PO SCH ×2 (08:04→20:53)
[2018-04-07] MEDS: MEMANTINE 10 MG TAB PO SCH (08:04)
[2018-04-07] MEDS: QUETIAPINE 25 MG TAB PO SCH ×2 (08:05→20:53)
[2018-04-07] MEDS: LISINOPRIL 5 MG TAB PO SCH (08:05)
[2018-04-07] MEDS: OXYBUTYNIN 5 MG TAB PO SCH (08:05)
[2018-04-07] MEDS: DONEPEZIL 5 MG TAB PO SCH (08:06)
[2018-04-07] MEDS: ANASTROZOLE 1 MG TAB PO SCH (08:06)
[2018-04-07] MEDS: BALSAM PERU/CASTOR OIL 60 GM TUBE TOP SCH ×2 (08:36→20:55)
[2018-04-07 09:11] VITALS: BP 175/75; PULSE 82; RESP 18
--- NOTE | 2018-04-07 11:19 | NUR ---
SS Note: AHCD PLACED IN PT'S CHART SW received a copy of pt's AHCD from son Magno. SW placed AHCD it in pt's chart. Pt's son, Marvel Lott , is the designated first surrogate decision maker and son Donovan Lott is the designated secondary surrogate decision maker.
--- NOTE | 2018-04-07 13:54 | PN ---
Date/Time of Note Date/Time of Note DATE: 04/07/18 TIME: 13:51 Assessment/Plan VTE Prophylaxis Risk score (from Ns)>0 risk: 8 SCD applied (from Ns): Yes Pharmacological prophylaxis: heparin Lines/Catheters IV Catheter Type (from [facility]): Saline Lock Urinary Cath still in place: No Assessment/Plan Hospital Course SUBJECTIVE: Complains of right hip pain. OBJECTIVE: Physical Exam General: Adequately build 87 year-old female lying in bed in mild respiratory distress. HEENT: Normocephalic, atraumatic. Eyes: Anicteric sclerae, conjunctivae clear. ENT: Nasal septum midline, oral mucosa is dry. Respiratory: Bilaterally diminished breath sounds. Cardiovascular: S1, S2 heard. Regular rate and rhythm. Abdomen: Soft and non-distended. Bowel sounds positive in all 4 quadrants. Genitourinary: Deferred. Extremities: No cyanosis, no edema. Peripheral pulses palpable. Neurologic: The patient is awake and alert. Oriented to place and person. Skin: Normal skin turgor. No skin rashes. Labs & Vitals per chart ASSESSMENT & PLAN 87-year-old female with comorbidities including dementia, asthma, breast cancer who was at a [facility] and was brought to the emergency room secondary to sepsis with leukocytosis, febrile illness, and tachycardia, secondary to underlying urinary tract infection. 1. Sepsis with leukocytosis, febrile illness, tachycardia, secondary to underlying urinary tract infection, present on admission. -Continue antimicrobials as per sensitivities. 2. Acute respiratory failure. -Hypoxic. -Most probably secondary to underlying asthma exacerbation. -Continue supplemental oxygen. -Continue inhaled bronchodilators and leukotriene inhibitors. 3. Breast cancer. -Continue Arimidex. 4. Irregular nodule with spiculated borders within the left upper lobe measuring 2.51.8 cm. -Possible neoplastic disease, provided the patient's underlying history of breast cancer. 5. Cardiomyopathy. -Left ventricular ejection fraction of 30% with severe global left ventricular systolic dysfunction and severe right ventricular hypokinesis. -Cardiology following. -Continue ACEI if BP permits. 6. Pre-diabetes. -Hemoglobin A1C 5.9. -Random blood glucose within normal limits. 7. Normocytic anemia. -Monitor H&H closely. 8. Dementia. -Continue memantine. 9. Fluids, electrolytes, and nutrition. -Mechanical soft diet. 10. Moderate protein-calorie malnutrition. -Dietary supplements. 10. DVT prophylaxis. -SQ heparin. 11. Plan. -Continue supplemental oxygen. -Continue inhaled bronchodilators. -Continue antimicrobials as per sensitivities. -The patient is a DNR/DNI. Plan is to discharge the patient to a [facility] facility once a SNF is available. Case management working with family to accommodate the family's demands. The patient was seen in collaboration with Dr. Leach. Result Diagram: 04/06/18 0602 04/06/18 0601 Exam/Review of Systems Vital Signs Vitals Vital Signs Date Temp Pulse Resp B/P (MAP) Pulse Ox O2 O2 Flow FiO2 Time Delivery Rate 04/07/18 98.2 82 18 175/75 94 09:11 (108) 04/06/18 2.0 00:23 04/05/18 Nasal 21:38 Cannula Intake and Output 04/06/18 04/06/18 04/07/18 1515:00 23:00 07:00 IntakeIntake Total 240 ml 480 ml BalanceBalance 240 ml 480 ml Medications Medications Current Medications IV Flush (NS 3 ml) 3 ml PER PROTOCOL IV ; Start 04/02/18 at 20:00 Acetaminophen (Tylenol Tab) 650 mg Q6H PRN PO PAIN LEVEL 1-3 OR FEVER Last administered on 04/06/18at 11:14; Admin Dose 650 MG; Start 04/02/18 at 20:00 Alprazolam (Xanax) 0.5 mg BID PRN PO ANXIETY Last administered on 04/04/18at 01:00; Admin Dose 0.5 MG; Start 04/02/18 at 20:00 Anastrozole (Arimidex) 1 mg DAILY PO Last administered on 04/07/18at 08:06; Admin Dose 1 MG; Start 04/03/18 at 09:00 Aspirin (Halfprin) 81 mg DAILY PO Last administered on 04/07/18 08:04; Admin Dose 81 MG; Start 04/03/18 at 09:00 Docusate Sodium (Colace) 100 mg BID PO Last administered on 04/07/18 08:04; Admin Dose 100 MG; Start 04/02/18 at 21:00 Donepezil HCl (Aricept) 5 mg DAILY PO Last administered on 04/07/18at 08:06; Adm in Dose 5 MG; Start 04/03/18 at 09:00 Furosemide (Lasix) 40 mg DAILY PO Last administered on 04/07/18 08:04; Admin Dose 40 MG; Start 04/03/18 at 09:00 Lisinopril (Zestril) 5 mg DAILY PO Last administered on 04/07/18 08:05; Admin Dose 5 MG; Start 04/03/18 at 09:00 Memantine (Namenda) 10 mg DAILY PO Last administered on 04/07/18 08:04; Admin Dose 10 MG; Start 04/03/18 at 09:00 Montelukast Sodium (Singulair) 10 mg QHS PO Last administered on 04/06/18 21:37; Admin Dose 10 MG; Start 04/02/18 at 21:00 Nitroglycerin (Nitroglycerin (Sl Tab) 0.4 Mg) 1 tab Q5M PRN SL CHEST PAIN; Start 04/02/18 at 20:00 Oxybutynin Chloride (Ditropan) 5 mg DAILY PO Last administered on 04/07/18 08:05; Admin Dose 5 MG; Start 04/03/18 at 09:00 Pantoprazole (Protonix Tab) 40 mg AC BREAKFAST DINNER PO Last administered on 04/07/18 06:41; Admin Dose 40 MG; Start 04/03/18 at 07:00 Paroxetine HCl (Paxil) 40 mg BID PO Last administered on 04/07/18 08:04; Admin Dose 40 MG; Start 04/02/18 at 21:00 Quetiapine Fumarate (Seroquel) 25 mg BID PO Last administered on 04/07/18 08:05; Admin Dose 25 MG; Start 04/02/18 at 21:00 Levofloxacin (Levaquin) 500 mg DAILY@06 PO Last administered on 04/07/18 06:40; Admin Dose 500 MG; Start 04/05/18 at 06:00; Stop 04/12/18 at 05:59 IV Flush (NS 10 ml) 10 ml PRN PRN IV FLUSH LINE; Start 04/05/18 at 14:00 Megestrol Acetate (Megace Susp) 400 mg BID PO Last administered on 04/07/18 08:04; Admin Dose 400 MG; Start 04/05/18 at 21:00 Heparin Sodium (Porcine) (Heparin (5000 Units/1ml)) 5,000 unit Q8 SC Last administered on 04/07/18at 13:48; Admin Dose 5,000 UNIT; Start 04/05/18 at 22:00 PHILIP EUCEDA NP Apr 07, 2018 13:54
[2018-04-07] MEDS ORDERED: LEVO500T48 PO (13:55)
[2018-04-07] MEDS ORDERED: MEGE400O4 PO (13:55)
[2018-04-07 14:44] VITALS: BP 114/55; PULSE 114; RESP 18
--- NOTE | 2018-04-07 16:35 | NUR ---
DC UPDATE: PATIENT'S SONS WANTED PATIENT TO GO TO [facility]; DENIED BALDEV GRIFFIN DENIED; REASON MEDICARE SNF DAYS ONLY 24 DAYS LEFT; NO SECONDARY INSURANCE. ALSO HX OF SCHIZOPHRENIA AND PARANOIA. CALL FROM SON BILLY STARK, WANTED TO TALK TO FINANCIAL COUNSELLOR RE SECONDARY INSURANCE FOR [employer] CARE IN A FACILITY. PATIENT'S SONS DOES NOT WANT TO TRANSFER TO ANY SNF EXCEPT [facility]. PROVIDED HIM TEL # OF [facility]ILL [facility]WKINS. Addendum: 04/07/18 at 1641 by [email or web address] Amended: Links added. Addendum: 04/08/18 at 1659 by [employer] SPOKE TO BILLY TO TAKE A LOOK @ [facility] IN [place] . FF UP BILLY IF AGREE TO RREFER MOM TO [facility].
--- NOTE | 2018-04-07 16:54 | NUR ---
Informed Matthew Mane PREVENTIVE MEDICINE PHYSICIAN of the vital signs with no new orders. Will continue to monitor
--- NOTE | 2018-04-07 17:30 | NUR ---
NURSE NOTES; patient remained stable throughout the shift with no acute changes noted. no changes in LOC or mentation. No SOB or distress. vital signs WNL. IV patent and intact. on low air loss mattress, wound care treatment done, tolerated well. all due medications were given, tolerated well. safety precautions observed, hourly rounding done, bed alarm and bed brakes on for safety. Call light and telephone within reach at all times. Will continue to monitor. Will endorse accordingly to next shift for continuity of care. Addendum: 04/07/18 at 1753 by BOSSMAN BARRY RN patient continued to be placed on isolation (contact) for scabies but patient has been treated.
[2018-04-07 20:00] VITALS: BP 105/72; PULSE 97; RESP 18
[2018-04-07] MEDS: MONTELUKAST 10 MG TAB PO SCH (20:54)
[2018-04-08 02:00] VITALS: BP_SYST 114; BP_SYST 131; BP_DIAS 62; BP_DIAS 67; PULSE 86; PULSE 92; RESP 17
[2018-04-08] MEDS: LEVOFLOXACIN 500 MG TAB PO SCH (06:04)
[2018-04-08] MEDS: HEPARIN 5,000 UNIT/1 ML VIAL SC SCH ×3 (06:04→21:57)
[2018-04-08] MEDS: PANTOPRAZOLE (EC) 40 MG TAB PO SCH ×2 (06:04→18:38)
[2018-04-08] MEDS: FUROSEMIDE 40 MG TAB PO SCH (08:55)
[2018-04-08] MEDS: ASPIRIN (EC) 81 MG TAB PO SCH (08:55)
[2018-04-08] MEDS: ANASTROZOLE 1 MG TAB PO SCH (08:55)
[2018-04-08] MEDS: MEGESTROL (40 MG/ML) 10ML CUP PO SCH ×2 (08:55→21:56)
[2018-04-08] MEDS: LISINOPRIL 5 MG TAB PO SCH (08:56)
[2018-04-08] MEDS: QUETIAPINE 25 MG TAB PO SCH ×2 (08:56→21:56)
[2018-04-08] MEDS: DOCUSATE SODIUM 100 MG CAP PO SCH ×2 (08:56→21:56)
[2018-04-08] MEDS: PAROXETINE 20 MG TAB PO SCH ×2 (08:56→21:56)
[2018-04-08] MEDS: MEMANTINE 10 MG TAB PO SCH (08:56)
[2018-04-08] MEDS: DONEPEZIL 5 MG TAB PO SCH (08:56)
[2018-04-08] MEDS: OXYBUTYNIN 5 MG TAB PO SCH (08:57)
[2018-04-08] MEDS: BALSAM PERU/CASTOR OIL 60 GM TUBE TOP SCH ×2 (11:03→21:57)
--- NOTE | 2018-04-08 13:12 | PN ---
Date/Time of Note Date/Time of Note DATE: 04/08/18 TIME: 13:10 Assessment/Plan VTE Prophylaxis Risk score (from Ns)>0 risk: 7 SCD applied (from Ns): Yes Pharmacological prophylaxis: heparin Lines/Catheters IV Catheter Type (from [facility]): Saline Lock Urinary Cath still in place: No Assessment/Plan Hospital Course General: Adequately build 87 year-old female lying in bed in mild respiratory distress. HEENT: Normocephalic, atraumatic. Eyes: Anicteric sclerae, conjunctivae clear. ENT: Nasal septum midline, oral mucosa is dry. Respiratory: Bilaterally diminished breath sounds. Cardiovascular: S1, S2 heard. Regular rate and rhythm. Abdomen: Soft and non-distended. Bowel sounds positive in all 4 quadrants. Genitourinary: Deferred. Extremities: No cyanosis, no edema. Peripheral pulses palpable. Neurologic: The patient is awake and alert. Oriented to place and person. Skin: Normal skin turgor. No skin rashes. Labs & Vitals per chart ASSESSMENT & PLAN 87-year-old female with comorbidities including dementia, asthma, breast cancer who was at a [facility] facility and was brought to the emergency room secondary to sepsis with leukocytosis, febrile illness, and tachycardia, secondary to underlying urinary tract infection. 1. Sepsis with leukocytosis, febrile illness, tachycardia, secondary to underlying urinary tract infection, present on admission. -Complete levaquin course Asthma/COPD; - Brochodilators. Breathing likely at basline. Occasional purse lips 3. Breast cancer. -Continue Arimidex. 4. Irregular nodule with spiculated borders within the left upper lobe measuring 2.51.8 cm. -Possible neoplastic disease, provided the patient's underlying history of breast cancer. 5. Cardiomyopathy. -Left ventricular ejection fraction of 30% with severe global left ventricular systolic dysfunction and severe right ventricular hypokinesis. -Cardiology following. -Continue ACEI if BP permits. 6. Pre-diabetes. -Hemoglobin A1C 5.9. -Random blood glucose within normal limits. 7. Normocytic anemia. -Monitor H&H closely. 8. Dementia. -Continue memantine. 9. Fluids, electrolytes, and nutrition. -Mechanical soft diet. 10. Moderate protein-calorie malnutrition. -Dietary supplements. 10. DVT prophylaxis. -SQ heparin. 11. Plan. -Continue supplemental oxygen. -Continue inhaled bronchodilators. -Continue antimicrobials as per sensitivities. -The patient is a DNR/DNI. Plan is to discharge the patient to a custodial facility once a SNF is available. Case management working with family to accommodate the family's demands. Result Diagram: 04/06/18 0602 04/06/18 0601 Subjective 24 Hr Interval Summary Free Text/Dictation Comfortable aside from "skin cancer" lesion she has behind her L ear. Says she needs it removed Exam/Review of Systems Exam Vitals Vital Signs Date Temp Pulse Resp B/P (MAP) Pulse Ox O2 O2 Flow FiO2 Time Delivery Rate 04/08/18 98.2 92 17 114/62 96 02:00 (79) 04/08/18 21 00:51 04/06/18 2.0 00:23 04/05/18 Nasal 21:38 Cannula Intake and Output 04/07/18 04/07/18 04/08/18 1515:00 23:00 07:00 IntakeIntake Total 400 ml BalanceBalance 400 ml MER ALSTON MD Apr 08, 2018 13:12
[2018-04-08 13:46] VITALS: BP 93/59; PULSE 113; RESP 17
--- NOTE | 2018-04-08 18:41 | NUR ---
ON CONTACT ISOLATION D/T HX SCABIES AND WAS TREATED ALREADY PPE USED. NO SOB , NO ACUTE DISTRESS KEPT HEAD OF BED ELEVATED FOR PROPER BREATHING AND LUNG EXPANSION. BEDBOUND REPOSITION Q2HRS , KEPT CLEAN DRY AND ASSISTED HER WHEN EATING MEALS, ALL NEEDS ATTENDED vs WITHIN RANGE WILL CONTINUE POC
[2018-04-08 20:00] VITALS: BP 106/58; PULSE 108; RESP 18
[2018-04-08] MEDS: MONTELUKAST 10 MG TAB PO SCH (21:56)
[2018-04-09 02:00] VITALS: BP 122/59; PULSE 92; RESP 18
[2018-04-09] MEDS: PANTOPRAZOLE (EC) 40 MG TAB PO SCH ×2 (06:47→17:46)
[2018-04-09] MEDS: LEVOFLOXACIN 500 MG TAB PO SCH (06:47)
[2018-04-09] MEDS: HEPARIN 5,000 UNIT/1 ML VIAL SC SCH ×3 (06:48→21:54)
[2018-04-09 08:00] VITALS: BP 107/71; PULSE 71; RESP 18
[2018-04-09] MEDS: MEGESTROL (40 MG/ML) 10ML CUP PO SCH (08:25)
[2018-04-09] MEDS: DOCUSATE SODIUM 100 MG CAP PO SCH ×2 (08:25→21:54)
[2018-04-09] MEDS: QUETIAPINE 25 MG TAB PO SCH ×2 (08:26→21:54)
[2018-04-09] MEDS: PAROXETINE 20 MG TAB PO SCH ×2 (08:26→21:54)
[2018-04-09] MEDS: ASPIRIN (EC) 81 MG TAB PO SCH (08:26)
[2018-04-09] MEDS: DONEPEZIL 5 MG TAB PO SCH (08:26)
[2018-04-09] MEDS: OXYBUTYNIN 5 MG TAB PO SCH (08:27)
[2018-04-09] MEDS: MEMANTINE 10 MG TAB PO SCH (08:27)
[2018-04-09] MEDS: ANASTROZOLE 1 MG TAB PO SCH (08:27)
[2018-04-09] MEDS: BALSAM PERU/CASTOR OIL 60 GM TUBE TOP SCH ×2 (08:28→21:55)
[2018-04-09] MEDS: LISINOPRIL 5 MG TAB PO SCH (08:29)
[2018-04-09] MEDS: FUROSEMIDE 40 MG TAB PO SCH (08:29)
[2018-04-09 08:30] VITALS: BP 118/58; PULSE 98; RESP 18
--- NOTE | 2018-04-09 13:16 | NUR ---
Family Follow Up; Followed up with Marvel ; informed them about [facility] previously called [facility]. He will talk to his brother yaneth after work and they will call back with their decision. At this time will prepare referral, further they are also working with getting secondary insurance as advised and has talked with [facility] Financial counselor.
[2018-04-09 14:08] VITALS: BP 92/50; PULSE 103; RESP 17
--- NOTE | 2018-04-09 14:28 | PN ---
Date/Time of Note Date/Time of Note DATE: 04/09/18 TIME: 14:28 Assessment/Plan VTE Prophylaxis Risk score (from Ns)>0 risk: 8 SCD applied (from Ns): Yes Pharmacological prophylaxis: heparin Lines/Catheters IV Catheter Type (from [facility]): Saline Lock Urinary Cath still in place: No Assessment/Plan Hospital Course General: Adequately build 87 year-old female lying in bed in mild respiratory distress. HEENT: Normocephalic, atraumatic. Eyes: Anicteric sclerae, conjunctivae clear. ENT: Nasal septum midline, oral mucosa is dry. Respiratory: Bilaterally diminished breath sounds. Cardiovascular: S1, S2 heard. Regular rate and rhythm. Abdomen: Soft and non-distended. Bowel sounds positive in all 4 quadrants. Genitourinary: Deferred. Extremities: No cyanosis, no edema. Peripheral pulses palpable. Neurologic: The patient is awake and alert. Oriented to place and person. Skin: Normal skin turgor. No skin rashes. Labs & Vitals per chart ASSESSMENT & PLAN 87-year-old female with comorbidities including dementia, asthma, breast cancer who was at a [facility] and was brought to the emergency room secondary to sepsis with leukocytosis, febrile illness, and tachycardia, secondary to underlying urinary tract infection. UTI: - resolved, dc abx Asthma/COPD; - Brochodilators. Breathing likely at basline. Occasional purse lips Breast cancer. -Continue Arimidex. Irregular nodule with spiculated borders within the left upper lobe measuring 2.51.8 cm. -Possible neoplastic disease, provided the patient's underlying history of breast cancer. Cardiomyopathy. -Left ventricular ejection fraction of 30% with severe global left ventricul ar systolic dysfunction and severe right ventricular hypokinesis. -Cardiology following. -Continue ACEI if BP permits. Pre-diabetes. -Hemoglobin A1C 5.9. -Random blood glucose within normal limits. Normocytic anemia. -Monitor H&H closely. 9. Fluids, electrolytes, and nutrition. -Mechanical soft diet. 10. Moderate protein-calorie malnutrition. -Dietary supplements. 10. DVT prophylaxis. -SQ heparin. 11. Plan. -Continue supplemental oxygen. -Continue inhaled bronchodilators. -Continue antimicrobials as per sensitivities. -The patient is a DNR/DNI. Plan is to [facility] the [facility] once a SNF is available. Case management working with family to accommodate the family's demands. Result Diagram: 04/06/18 0602 04/06/18 0601 Subjective 24 Hr Interval Summary Free Text/Dictation No change to clinical status Awaits placement Exam/Review of Systems Exam Vitals Vital Signs Date Temp Pulse Resp B/P (MAP) Pulse Ox O2 O2 Flow FiO2 Time Delivery Rate 04/09/18 97.4 103 17 92/50 (64) 95 14:08 04/09/18 Room Air 08:00 04/08/18 21 00:51 04/06/18 2.0 00:23 Intake and Output 04/08/18 04/08/18 04/09/18 1515:00 23:00 07:00 IntakeIntake Total 980 ml 480 ml 120 ml BalanceBalance 980 ml 480 ml 120 ml Medications Medication Current Medications IV Flush (NS 3 ml) 3 ml PER PROTOCOL IV ; Start 04/02/18 at 20:00 Acetaminophen (Tylenol Tab) 650 mg Q6H PRN PO PAIN LEVEL 1-3 OR FEVER Last administered on 04/06/18at 11:14; Admin Dose 650 MG; Start 04/02/18 at 20:00 Alprazolam (Xanax) 0.5 mg BID PRN PO ANXIETY Last administered on 04/04/18 01:00; Admin Dose 0.5 MG; Start 04/02/18 at 20:00 Anastrozole (Arimidex) 1 mg DAILY PO Last administered on 04/09/18 08:27; Admin Dose 1 MG; Start 04/03/18 at 09:00 Docusate Sodium (Colace) 100 mg BID PO Last administered on 04/09/18 08:25; Admin Dose 100 MG; Start 04/02/18 at 21:00 Donepezil HCl (Aricept) 5 mg DAILY PO Last administered on 04/09/18 08:26; Admin Dose 5 MG; Start 04/03/18 at 09:00 Furosemide (Lasix) 40 mg DAILY PO Last administered on 04/09/18 08:29; Admin Dose 40 MG; Start 04/03/18 at 09:00 Lisinopril (Zestril) 5 mg DAILY PO Last administered on 04/09/18 08:29; Admin Dose 5 MG; Start 04/03/18 at 09:00 Memantine (Namenda) 10 mg DAILY PO Last administered on 04/09/18 08:27; Admin Dose 10 MG; Start 04/03/18 at 09:00 Montelukast Sodium (Singulair) 10 mg QHS PO Last administered on 04/08/18 21:56; Admin Dose 10 MG; Start 04/02/18 at 21:00 Nitroglycerin (Nitroglycerin (Sl Tab) 0.4 Mg) 1 tab Q5M PRN SL CHEST PAIN; Start 04/02/18 at 20:00 Pantoprazole (Protonix Tab) 40 mg AC BREAKFAST DINNER PO Last administered on 04/09/18 06:47; Admin Dose 40 MG; Start 04/03/18 at 07:00 Paroxetine HCl (Paxil) 40 mg BID PO Last administered on 04/09/18 08:26; Admin Dose 40 MG; Start 04/02/18 at 21:00 Quetiapine Fumarate (Seroquel) 25 mg BID PO Last administered on 04/09/18 08:26; Admin Dose 25 MG; Start 04/02/18 at 21:00 IV Flush (NS 10 ml) 10 ml PRN PRN IV FLUSH LINE; Start 04/05/18 at 14:00 Heparin Sodium (Porcine) (Heparin (5000 Units/1ml)) 5,000 unit Q8 SC Last administered on 04/09/18 14:20; Admin Dose 5,000 UNIT; Start 04/05/18 at 22:00 MER ALSTON MD Apr 09, 2018 14:28
--- NOTE | 2018-04-09 17:27 | NUR ---
NURSE NOTES; patient remained stable throughout the shift with no acute changes noted. no changes in LOC or mentation. No SOB or distress. vital signs WNL. IV patent and intact. on low air loss mattress, wound care treatment done, tolerated well. all due medications were given, tolerated well. safety precautions observed, hourly rounding done, bed alarm and bed brakes on for safety. Call light and telephone within reach at all times. Will continue to monitor. Will endorse accordingly to next shift for continuity of care. Still awaiting for placement
[2018-04-09 20:14] VITALS: BP 118/61; PULSE 93; RESP 18
[2018-04-09] MEDS: MONTELUKAST 10 MG TAB PO SCH (21:54)
[2018-04-10] MEDS: ACETAMINOPHEN 325 MG TAB PO PRN (00:50)
[2018-04-10 01:57] VITALS: BP 125/62; PULSE 94; RESP 20
[2018-04-10] MEDS: PANTOPRAZOLE (EC) 40 MG TAB PO SCH ×2 (05:53→18:03)
[2018-04-10] MEDS: HEPARIN 5,000 UNIT/1 ML VIAL SC SCH ×3 (05:53→22:05)
[2018-04-10 08:00] VITALS: BP 144/69; PULSE 75; RESP 20
[2018-04-10] MEDS: MEMANTINE 10 MG TAB PO SCH (09:17)
[2018-04-10] MEDS: QUETIAPINE 25 MG TAB PO SCH ×2 (09:17→21:02)
[2018-04-10] MEDS: FUROSEMIDE 40 MG TAB PO SCH (09:17)
[2018-04-10] MEDS: PAROXETINE 20 MG TAB PO SCH ×2 (09:17→21:02)
[2018-04-10] MEDS: DOCUSATE SODIUM 100 MG CAP PO SCH ×2 (09:17→21:02)
[2018-04-10] MEDS: ANASTROZOLE 1 MG TAB PO SCH (09:18)
[2018-04-10] MEDS: BALSAM PERU/CASTOR OIL 60 GM TUBE TOP SCH ×2 (09:20→21:03)
--- NOTE | 2018-04-10 10:00 | NUR ---
Talk with regarding the high ''wbc''level.14.5 .no new orders received at this time.
[2018-04-10] MEDS: LISINOPRIL 5 MG TAB PO SCH (10:32)
--- NOTE | 2018-04-10 14:32 | PN ---
Date/Time of Note Date/Time of Note DATE: 04/10/18 TIME: 14:32 Assessment/Plan VTE Prophylaxis Risk score (from Ns)>0 risk: 3 SCD applied (from Ns): Yes Pharmacological prophylaxis: heparin Lines/Catheters IV C[facility] Type (from [facility] Saline Lock Urinary Cath still in place: No Assessment/Plan Hospital Course General: Adequately build 87 year-old female lying in bed in mild respiratory distress. HEENT: Normocephalic, atraumatic. Eyes: Anicteric sclerae, conjunctivae clear. ENT: Nasal septum midline, oral mucosa is dry. Respiratory: Bilaterally diminished breath sounds. Cardiovascular: S1, S2 heard. Regular rate and rhythm. Abdomen: Soft and non-distended. Bowel sounds positive in all 4 quadrants. Genitourinary: Deferred. Extremities: No cyanosis, no edema. Peripheral pulses palpable. Neurologic: The patient is awake and alert. Oriented to place and person. Skin: Normal skin turgor. No skin rashes. Labs & Vitals per chart ASSESSMENT & PLAN 87-year-old female with comorbidities including dementia, asthma, breast cancer who was at a [facility] and was brought to the emergency room secondary to sepsis with leukocytosis, febrile illness, and tachycardia, secondary to underlying urinary tract infection. UTI: - resolved, dc abx Asthma/COPD; - Brochodilators. Breathing likely at basline. Occasional purse lips Breast cancer. -Continue Arimidex. Irregular nodule with spiculated borders within the left upper lobe measuring 2.51.8 cm. -Possible neoplastic disease, provided the patient's underlying history of breast cancer. Cardiomyopathy. -Left ventricular ejection fraction of 30% with severe global left ventricul ar systolic dysfunction and severe right ventricular hypokinesis. -Cardiology following. -Continue ACEI if BP permits. Pre-diabetes. -Hemoglobin A1C 5.9. -Random blood glucose within normal limits. Normocytic anemia. -Monitor H&H closely. 9. Fluids, electrolytes, and nutrition. -Mechanical soft diet. 10. Moderate protein-calorie malnutrition. -Dietary supplements. 10. DVT prophylaxis. -SQ heparin. 11. Plan. -Continue supplemental oxygen. -Continue inhaled bronchodilators. -Continue antimicrobials as per sensitivities. -The patient is a DNR/DNI Plan to discharge patient to [facility] Result Diagram: 04/10/18 0509 04/10/18 0509 Results 24hrs Laboratory Tests Test 04/10/18 05:09 White Blood Count 14.5 #H Red Blood Count 3.65 L Hemoglobin 9.8 L Hematocrit 29.6 L Mean Corpuscular Volume 81.1 L Mean Corpuscular Hemoglobin 26.8 L Mean Corpuscular Hemoglobin Concent 33.1 Red Cell Distribution Width 15.3 H Platelet Count 527 #H Mean Platelet Volume 8.6 Immature Granulocytes % 3.300 H Neutrophils % 74.6 Lymphocytes % 12.2 L Monocytes % 7.4 Eosinophils % 2.1 Basophils % 0.4 Nucleated Red Blood Cells % 0.0 Immature Granulocytes # 0.480 H Neutrophils # 10.8 H Lymphocytes # 1.8 Monocytes # 1.1 H Eosinophils # 0.3 Basophils # 0.1 Nucleated Red Blood Cells # 0.0 Sodium Level 135 Potassium Level 4.4 Chloride Level 96 L Carbon Dioxide Level 31 Anion Gap 8 Blood Urea Nitrogen 8 Creatinine 0.47 Est Glomerular Filtrat Rate mL/min Glucose Level 100 Calcium Level 9.2 Subjective 24 Hr Interval Summary Free Text/Dictation [facility]. However son now says wants subacute rehab facility instead Exam/Review of Systems Exam Vitals Vital Signs Date Temp Pulse Resp B/P (MAP) Pulse Ox O2 O2 Flow FiO2 Time Delivery Rate 04/10/18 98.6 75 20 144/69 94 08:00 (94) 04/09/18 Room Air 08:00 04/08/18 21 00:51 Intake and Output 04/09/18 04/09/18 04/10/18 1515:00 23:00 07:00 IntakeIntake Total 840 ml 240 ml 250 ml BalanceBalance 840 ml 240 ml 250 ml Results Results 24hrs Laboratory Tests Test 04/10/18 05:09 White Blood Count 14.5 #H Red Blood Count 3.65 L Hemoglobin 9.8 L Hematocrit 29.6 L Mean Corpuscular Volume 81.1 L Mean Corpuscular Hemoglobin 26.8 L Mean Corpuscular Hemoglobin Concent 33.1 Red Cell Distribution Width 15.3 H Platelet Count 527 #H Mean Platelet Volume 8.6 Immature Granulocytes % 3.300 H Neutrophils % 74.6 Lymphocytes % 12.2 L Monocytes % 7.4 Eosinophils % 2.1 Basophils % 0.4 Nucleated Red Blood Cells % 0.0 Immature Granulocytes # 0.480 H Neutrophils # 10.8 H Lymphocytes # 1.8 Monocytes # 1.1 H Eosinophils # 0.3 Basophils # 0.1 Nucleated Red Blood Cells # 0.0 Sodium Level 135 Potassium Level 4.4 Chloride Level 96 L Carbon Dioxide Level 31 Anion Gap 8 Blood Urea Nitrogen 8 Creatinine 0.47 Est Glomerular Filtrat Rate mL/min Glucose Level 100 Calcium Level 9.2 Medications Medication Current Medications IV Flush (NS 3 ml) 3 ml PER PROTOCOL IV ; Start 04/02/18 at 20:00 Acetaminophen (Tylenol Tab) 650 mg Q6H PRN PO PAIN LEVEL 1-3 OR FEVER Last administered on 04/10/18 00:50; Admin Dose 650 MG; Start 04/02/18 at 20:00 Alprazolam (Xanax) 0.5 mg BID PRN PO ANXIETY Last administered on 04/04/18 01:00; Admin Dose 0.5 MG; Start 04/02/18 at 20:00 Anastrozole (Arimidex) 1 mg DAILY PO Last administered on 04/10/18 09:18; Admin Dose 1 MG; Start 04/03/18 at 09:00 Docusate Sodium (Colace) 100 mg BID PO Last administered on 04/10/18 09:17; Admin Dose 100 MG; Start 04/02/18 at 21:00 Furosemide (Lasix) 40 mg DAILY PO Last administered on 04/10/18 09:17; Admin Dose 40 MG; Start 04/03/18 at 09:00 Memantine (Namenda) 10 mg DAILY PO Last administered on 04/10/18 09:17; Admin Dose 10 MG; Start 04/03/18 at 09:00 Montelukast Sodium (Singulair) 10 mg QHS PO Last administered on 04/09/18 21:54; Admin Dose 10 MG; Start 04/02/18 at 21:00 Nitroglycerin (Nitroglycerin (Sl Tab) 0.4 Mg) 1 tab Q5M PRN SL CHEST PAIN; Start 04/02/18 at 20:00 Pantoprazole (Protonix Tab) 40 mg AC BREAKFAST DINNER PO Last administered on 04/10/18 05:53; Admin Dose 40 MG; Start 04/03/18 at 07:00 Paroxetine HCl (Paxil) 40 mg BID PO Last administered on 04/10/18 09:17; Admin Dose 40 MG; Start 04/02/18 at 21:00 Quetiapine Fumarate (Seroquel) 25 mg BID PO Last administered on 04/10/18at 09:17; Admin Dose 25 MG; Start 04/02/18 at 21:00 IV Flush (NS 10 ml) 10 ml PRN PRN IV FLUSH LINE; Start 04/05/18 at 14:00 Heparin Sodium (Porcine) (Heparin (5000 Units/1ml)) 5,000 unit Q8 SC Last administered on 04/10/18at 13:56; Admin Dose 5,000 UNIT; Start 04/05/18 at 22:00 Lisinopril (Zestril) 5 mg DAILY PO Last administered on 04/10/18at 10:32; Admin Dose 5 MG; Start 04/10/18 at 10:00 MER ALSTON MD Apr 10, 2018 14:32
[2018-04-10 15:00] VITALS: BP 115/60; PULSE 100; RESP 18
--- NOTE | 2018-04-10 15:51 | NUR ---
Discharge planning; Followed up with [facility] about [facility] facility inquiry and provided following facilities, will send referrals to: [facility] , faxed to ; [facility] , faxed to ; [facility] , faxed to ; [facility] , faxed to ; [facility] , faxed to . Will follow up with facility- thus far [facility] and [facility] have no one in Admissions to review case.
--- NOTE | 2018-04-10 18:42 | NUR ---
all needs met.no acute events.turned the patient q 2 hours.call light within reach.bed alarm on .she is resting comfortably in bed.
[2018-04-10 20:00] VITALS: BP 107/59; PULSE 107; RESP 18
[2018-04-10 21:00] VITALS: PULSE 95
[2018-04-10] MEDS: MONTELUKAST 10 MG TAB PO SCH (21:02)
[2018-04-11 02:00] VITALS: BP 101/58; PULSE 93; RESP 18
[2018-04-11] MEDS: HEPARIN 5,000 UNIT/1 ML VIAL SC SCH ×3 (06:12→22:13)
[2018-04-11] MEDS: PANTOPRAZOLE (EC) 40 MG TAB PO SCH ×3 (06:13→16:56)
--- NOTE | 2018-04-11 06:32 | NUR ---
End of shift Report: Pt on contact isolation for Hx of scabies, no order from MD will clarify isolation order. NO sob. No resp distress. Afebrile. Compliant with mes. Turned and repositioned. For Wound Consult regarding open DTI on Sacrococcyx. Kept clean and dry. Kept comfortable at all times. No changes overnight. Pt son is requesting to transfer pt to Subacute Rehab c/o CM. Will continue to monitor. Will endorse accordingly
[2018-04-11 08:09] VITALS: BP 102/58; PULSE 107; RESP 18
[2018-04-11] MEDS: ANASTROZOLE 1 MG TAB PO SCH (08:41)
[2018-04-11] MEDS: QUETIAPINE 25 MG TAB PO SCH ×2 (08:42→20:15)
[2018-04-11] MEDS: DOCUSATE SODIUM 100 MG CAP PO SCH ×2 (08:42→20:15)
[2018-04-11] MEDS: PAROXETINE 20 MG TAB PO SCH ×2 (08:42→20:15)
[2018-04-11] MEDS: MEMANTINE 10 MG TAB PO SCH (08:42)
[2018-04-11] MEDS: FUROSEMIDE 40 MG TAB PO SCH (08:43)
[2018-04-11] MEDS: BALSAM PERU/CASTOR OIL 60 GM TUBE TOP SCH ×2 (08:43→20:17)
[2018-04-11] MEDS: LISINOPRIL 5 MG TAB PO SCH (08:43)
--- NOTE | 2018-04-11 09:02 | NUR ---
Patient in bed, acknowledges physical therapy however reports fall "2 months" ago resulting in R hip fracture. Recent radiographs indicate no acute fracture. Patient poor historian throughout, highly distractable, attempted to perform bed mobility, PROM of R knee and hip, pt expressed significant pain and refused further mobility. Per chart review, last hospital admit Nov 2017, pt max A bed mobility, unable to safely perform evaluation at this time. RN aware to PT attempt.
--- NOTE | 2018-04-11 14:09 | PN ---
Date/Time of Note Date/Time of Note DATE: 04/11/18 TIME: 14:08 Assessment/Plan VTE Prophylaxis Risk score (from Ns)>0 risk: 9 SCD applied (from Ns): Yes Pharmacological prophylaxis: heparin Lines/Catheters IV Catheter Type (from Nrs): Saline Lock Urinary Cath still in place: No Assessment/Plan Hospital Course Labs & Vitals per chart ASSESSMENT & PLAN 87-year-old female with comorbidities including dementia, asthma, breast cancer who was at a [facility] and was brought to the emergency room secondary to sepsis with leukocytosis, febrile illness, and tachycardia, secondary to underlying urinary tract infection. Infection now resolved and she is awaiting placement at discharge. UTI: - resolved, dc abx Asthma/COPD; - Brochodilators. Breathing at baseline Breast cancer. -Continue Arimidex. Irregular nodule with spiculated borders within the left upper lobe measuring 2.51.8 cm. -Possible neoplastic disease, provided the patient's underlying history of breast cancer. Cardiomyopathy. -Left ventricular ejection fraction of 30% with severe global left ventricular systolic dysfunction and severe right ventricular hypokinesis. -Cardiology following. -Continue ACEI if BP permits. Pre-diabetes. -Hemoglobin A1C 5.9. -Random blood glucose within normal limits. Normocytic anemia. -Monitor H&H closely. 9. Fluids, electrolytes, and nutrition. -Mechanical soft diet. 10. Moderate protein-calorie malnutrition. -Dietary supplements. 10. DVT prophylaxis. -SQ heparin. 11. Plan. -Continue supplemental oxygen. -Continue inhaled bronchodilators. -Continue antimicrobials as per sensitivities. -The patient is a DNR/DNI Plan to discharge patient to [facility] when accepted Result Diagram: 04/10/18 0509 04/10/18 0509 Subjective 24 Hr Interval Summary Free Text/Dictation No change to clinical status Awaiting placement Exam/Review of Systems Exam Vitals Vital Signs Date Temp Pulse Resp B/P (MAP) Pulse Ox O2 O2 Flow FiO2 Time Delivery Rate 04/11/18 99.0 107 18 102/58 99 08:09 (73) 04/10/18 Room Air 15:00 04/08/18 21 00:51 Intake and Output 04/10/18 04/10/18 04/11/18 1414:59 22:59 06:59 IntakeIntake Total 900 ml 400 ml 500 ml BalanceBalance 900 ml 400 ml 500 ml Medications Medication Current Medications IV Flush (NS 3 ml) 3 ml PER PROTOCOL IV ; Start 04/02/18 at 20:00 Acetaminophen (Tylenol Tab) 650 mg Q6H PRN PO PAIN LEVEL 1-3 OR FEVER Last administered on 04/10/18 00:50; Admin Dose 650 MG; Start 04/02/18 at 20:00 Alprazolam (Xanax) 0.5 mg BID PRN PO ANXIETY Last administered on 04/04/18 01:00; Admin Dose 0.5 MG; Start 04/02/18 at 20:00 Anastrozole (Arimidex) 1 mg DAILY PO Last administered on 04/11/18 08:41; Admin Dose 1 MG; Start 04/03/18 at 09:00 Docusate Sodium (Colace) 100 mg BID PO Last administered on 04/11/18 08:42; Admin Dose 100 MG; Start 04/02/18 at 21:00 Furosemide (Lasix) 40 mg DAILY PO Last administered on 04/11/18 08:43; Admin Dose 40 MG; Start 04/03/18 at 09:00 Memantine (Namenda) 10 mg DAILY PO Last administered on 04/11/18 08:42; Admin Dose 10 MG; Start 04/03/18 at 09:00 Montelukast Sodium (Singulair) 10 mg QHS PO Last administered on 04/10/18 21:02; Admin Dose 10 MG; Start 04/02/18 at 21:00 Nitroglycerin (Nitroglycerin (Sl Tab) 0.4 Mg) 1 tab Q5M PRN SL CHEST PAIN; Start 04/02/18 at 20:00 Pantoprazole (Protonix Tab) 40 mg AC BREAKFAST DINNER PO Last administered on 04/11/18 06:57; Admin Dose 40 MG; Start 04/03/18 at 07:00 Paroxetine HCl (Paxil) 40 mg BID PO Last administered on 04/11/18 08:42; Admin Dose 40 MG; Start 04/02/18 at 21:00 Quetiapine Fumarate (Seroquel) 25 mg BID PO Last administered on 04/11/18 08:42; Admin Dose 25 MG; Start 04/02/18 at 21:00 IV Flush (NS 10 ml) 10 ml PRN PRN IV FLUSH LINE; Start 04/05/18 at 14:00 Heparin Sodium (Porcine) (Heparin (5000 Units/1ml)) 5,000 unit Q8 SC Last administered on 04/11/18at 13:23; Admin Dose 5,000 UNIT; Start 04/05/18 at 22:00 Lisinopril (Zestril) 5 mg DAILY PO Last administered on 04/11/18at 08:43; Admin Dose 5 MG; Start 04/10/18 at 10:00 MER ALSTON MD Apr 11, 2018 14:08
[2018-04-11 14:48] VITALS: BP 115/63; PULSE 90; RESP 18
--- NOTE | 2018-04-11 15:11 | NUR ---
[facility] Received call back from [facility] (Admission Coordinator) and per their DON unable to accept Patient as longterm along with her limited [facility] days. Informed them that this will be short term placement only but at this time no bed available.
--- NOTE | 2018-04-11 17:30 | NUR ---
RN Notes: Patient remains alert and verbally responsive with period of forgetful reoriented as needed. afebrile, breathing even and unlabored, no sob noted, no c/o pain/discomfort. Dr. Solares made aware regarding pt pulse >90 and WBC yesterday was 14.5 (Sepsis risk), no new order received. Also follow up with Dr. Solares regarding isolation per MD no need for isolation pt was treated with her scabies. Still waiting for wound consult, wound care done as ordered, kept clean an ddry, incontinence care done, turned and repositioned. Hourly rounding done, call light within reach, bed alarm on. Will continue to monitor and will endorse for continuity of care.
[2018-04-11 20:00] VITALS: BP 115/57; PULSE 106; RESP 18
[2018-04-11] MEDS: MONTELUKAST 10 MG TAB PO SCH (20:15)
[2018-04-12 02:00] VITALS: BP 148/70; PULSE 106; RESP 20
[2018-04-12] MEDS: PANTOPRAZOLE (EC) 40 MG TAB PO SCH ×2 (06:23→17:54)
[2018-04-12] MEDS: HEPARIN 5,000 UNIT/1 ML VIAL SC SCH ×3 (06:24→22:03)
--- NOTE | 2018-04-12 06:35 | NUR ---
End of shift Report Awake in bed in comfortable position. NO sob. No resp distress.. Afebrile. No significant changes overnight. Turned and repositioned. Incontinent care rendered. Wound consult for sacrococcyx open DTI. Needs attended and anticipated. Kept comfortable at all times. Will endorse accordingly.
[2018-04-12 08:27] VITALS: BP 117/63; PULSE 109; RESP 20
--- NOTE | 2018-04-12 08:30 | NUR ---
PT evaluation Therapy day number 1 Evaluation Start Time 08:30 Evaluation End Time 09:30 Evaluation Total Time 60 min Subjective Current complaint of pain Pain Scale FACES Pain Intensity 7 (0-10) Patient Stated Goal for Pain Relief 0 (0-10) Pain Level Comment with R hip movement Pre Treatment Vital Signs Stable Yes Supine to Sit Maximum Assist Transfer Sit to Stand Ability Maximum Assist Bed Mobility Sit to Supine Maximum Assist Bed Transfer Ability Maximum Assist Chair Transfer Ability Maximum Assist Additional Mobility Comments max A of 1, squat pivot transfer Static Sitting Balance Fair Dynamic Sitting Balance Poor Standing Static Balance Poor Dynamic Standing Balance Poor Safety Judgement Poor Activity Tolerance Poor Equipment Present A pump IV pump Post Treatment Pain Intensity 7 0-10 Additional Post Treatment Comment See note Total Minutes 60 Total Units 4 PT Technical Record Comment 88 yo female presents with AMS from [facility]. found to have UTI. Patient reportedly fell "over a week" ago states has a fracture, however radiographic evidence states rules out fx. Humerus xray (-) Femur xray (-) Pelvis CT indicates Moderate left hip arthrosis, and forminal narrowing at L5-S1 PMH: dementia, schizophrenia/paranoia, COPD/asthma, previous JULIANE, TSA Precaution: fall risk, CONTACT isolation PLOF: Patient lives at [facility], reportedly non-ambulatory. patient states transferring without physical assist previously however patient poor historian throughout S: Patient in bed, agreeable to PT evaluation. pt cleared for activity per RN O: PT evaluation completed, pt returned back to bed following therapy intervention with call light within reach and bed alarm activated. Spoke to RN regarding pt response to activity and PT plan of care. No reports of dizziness or shortness of breath with activity. Pain in R hip throughout. Patient assisted to chair to eat breakfast, tolerated roughly 20 minutes in chair, assisted back to bed following. A: Patient presents with profound limitations due to significant muscle guarding and pain in R hip. Patient retropulses in sitting requiring cues for forward weight shift and highly fearful of falling with transfers. Patient confused throughout with poor receptiveness and recall of safety instruction. Will place patient of trial for physical therapy to observe improvements to functional mobility and receptiveness to instruction. Pt may benefit from skilled inpatient PT to improve strength, endurance, and functional mobility P: progress transfers as tolerated Recommendation: patient will likely require 24 hr care post hospitalization, recommend SNF for continuation of therapy when medically cleared by
[2018-04-12] MEDS: DOCUSATE SODIUM 100 MG CAP PO SCH ×2 (09:03→20:42)
[2018-04-12] MEDS: ANASTROZOLE 1 MG TAB PO SCH (09:03)
[2018-04-12] MEDS: PAROXETINE 20 MG TAB PO SCH ×2 (09:03→20:42)
[2018-04-12] MEDS: MEMANTINE 10 MG TAB PO SCH (09:04)
[2018-04-12] MEDS: QUETIAPINE 25 MG TAB PO SCH ×2 (09:04→20:42)
[2018-04-12] MEDS: LISINOPRIL 5 MG TAB PO SCH (09:04)
[2018-04-12] MEDS: FUROSEMIDE 40 MG TAB PO SCH (09:04)
[2018-04-12] MEDS: BALSAM PERU/CASTOR OIL 60 GM TUBE TOP SCH ×2 (09:05→20:42)
--- NOTE | 2018-04-12 12:41 | NUR ---
WOUND RE-EVALUATION CONSULT FOR SACROCOCCYX WOUND: Patient last seen by wound nurse on 04/03/18. - Sacrococcyx non-intact Deep tissue pressure injury with incontinence-associated dermatitis. Partial area open with majority maroon discoloration. Condition present on admission. Periwound intact. Please continue previous recommendation: -Cleanse sacrococcyx and periwound with mild soap and water, and pat dry. Apply Venelex ointment BID and cover with foam border dressing - Apply moisture barrier cream after cleansing to perineum after every incontinent episode - low air loss mattress placement -Continue turning and repositioning Every 2 hours and PRN -Elevate heels on pillows at all times -Keep HOB >30 degrees unless medically contraindicated Discussed plan of care with RN, Cecy. Spring Pisano BSN RN CWOCN
[2018-04-12 14:21] VITALS: BP 118/66; PULSE 94; RESP 20
--- NOTE | 2018-04-12 16:18 | PN ---
Date/Time of Note Date/Time of Note DATE: 04/12/18 TIME: 16:15 Assessment/Plan VTE Prophylaxis Risk score (from Nsg)>0 risk: 3 SCD applied (from Nsg): Yes Pharmacological prophylaxis: heparin Lines/Catheters IV Catheter Type (from Nrsg): Saline Lock Urinary Cath still in place: No Assessment/Plan Hospital Course 87-year-old female with comorbidities including dementia, asthma, breast cancer who was at a [id number] and was brought to the emergency room secondary to sepsis with leukocytosis, febrile illness, and tachycardia, secondary to underlying urinary tract infection. Infection now resolved and she is awaiting placement at discharge. UTI: - resolved, s/p abx Asthma/COPD; -BDP, Breathing at baseline Breast cancer. -Continue Arimidex. Irregular nodule with spiculated borders within the left upper lobe measuring 2.51.8 cm. -Possible neoplastic disease, provided the patient's underlying history of breast cancer, outpatient follow-up Cardiomyopathy. -Left ventricular ejection fraction of 30% with severe global left ventricular systolic dysfunction and severe right ventricular hypokinesis. -Cardiology following. -Continue ACEI if BP permits. Pre-diabetes. -Hemoglobin A1C 5.9. -Random blood glucose within normal limits. Normocytic anemia. -Monitor 9. Fluids, electrolytes, and nutrition. -Mechanical soft diet. 10. Moderate protein-calorie malnutrition. -Dietary supplements. Prophylaxis: Heparin DC planning: Awaiting placement in rehab versus skilled nursing Result Diagram: 04/10/18 0509 04/10/18 0509 Subjective 24 Hr Interval Summary Constitutional: no complaints Exam/Review of Systems Exam Vitals Vital Signs Date Temp Pulse Resp B/P (MAP) Pulse Ox O2 O2 Flow FiO2 Time Delivery Rate 04/12/18 98.0 94 20 118/66 95 Room Air 14:21 (83) Intake and Output 04/11/18 04/11/18 04/12/18 1414:59 22:59 06:59 IntakeIntake Total 120 ml 1400 ml 100 ml BalanceBalance 120 ml 1400 ml 100 ml Constitutional: alert Respiratory: clear to auscultation Cardiovascular: regular rate and rhythm Gastrointestinal: soft; No distended Musculoskeletal: nl extremities to inspection Medications Medication Current Medications IV Flush (NS 3 ml) 3 ml PER PROTOCOL IV ; Start 04/02/18 at 20:00 Acetaminophen (Tylenol Tab) 650 mg Q6H PRN PO PAIN LEVEL 1-3 OR FEVER Last administered on 04/10/18 00:50; Admin Dose 650 MG; Start 04/02/18 at 20:00 Alprazolam (Xanax) 0.5 mg BID PRN PO ANXIETY Last administered on 04/04/18 01:00; Admin Dose 0.5 MG; Start 04/02/18 at 20:00 Anastrozole (Arimidex) 1 mg DAILY PO Last administered on 04/12/18 09:03; Admin Dose 1 MG; Start 04/03/18 at 09:00 Docusate Sodium (Colace) 100 mg BID PO Last administered on 04/12/18 09:03; Admin Dose 100 MG; Start 04/02/18 at 21:00 Furosemide (Lasix) 40 mg DAILY PO Last administered on 04/12/18 09:04; Admin Dose 40 MG; Start 04/03/18 at 09:00 Memantine (Namenda) 10 mg DAILY PO Last administered on 04/12/18 09:04; Admin Dose 10 MG; Start 04/03/18 at 09:00 Montelukast Sodium (Singulair) 10 mg QHS PO Last administered on 04/11/18 20:15; Admin Dose 10 MG; Start 04/02/18 at 21:00 Nitroglycerin (Nitroglycerin (Sl Tab) 0.4 Mg) 1 tab Q5M PRN SL CHEST PAIN; Start 04/02/18 at 20:00 Pantoprazole (Protonix Tab) 40 mg AC BREAKFAST DINNER PO Last administered on 04/12/18 06:23; Admin Dose 40 MG; Start 04/03/18 at 07:00 Paroxetine HCl (Paxil) 40 mg BID PO Last administered on 04/12/18 09:03; Admin Dose 40 MG; Start 04/02/18 at 21:00 Quetiapine Fumarate (Seroquel) 25 mg BID PO Last administered on 04/12/18 09:04; Admin Dose 25 MG; Start 04/02/18 at 21:00 IV Flush (NS 10 ml) 10 ml PRN PRN IV FLUSH LINE; Start 04/05/18 at 14:00 Heparin Sodium (Porcine) (Heparin (5000 Units/1ml)) 5,000 unit Q8 SC Last administered on 04/12/18at 15:18; Admin Dose 5,000 UNIT; Start 04/05/18 at 22:00 Lisinopril (Zestril) 5 mg DAILY PO Last administered on 04/12/18at 09:04; Admin Dose 5 MG; Start 04/10/18 at 10:00 ROSALINA CONTRERAS Apr 12, 2018 16:18
--- NOTE | 2018-04-12 16:29 | NUR ---
RECEIVED CALL FROM SOFIA SALEH OF PATIENT WORKING WITH [employer] TEL# [phone]. Addendum: 04/12/18 at 1630 by KATHE DEL ROSARIO CM Amended: Links added.
[2018-04-12] MEDS: ACETAMINOPHEN 325 MG TAB PO PRN (17:55)
--- NOTE | 2018-04-12 18:47 | NUR ---
All needs met.no acute events.gave tylenol for pain as reqested.turned the patient q 2 hours .changed the dressing as ordered.call light within reach.bed alarm on.she is resting comfortably in bed.
[2018-04-12 20:00] VITALS: BP 115/60; PULSE 107; RESP 20
[2018-04-12] MEDS: MONTELUKAST 10 MG TAB PO SCH (20:42)
[2018-04-13 02:00] VITALS: BP 113/63; PULSE 102; RESP 18
[2018-04-13] MEDS: HEPARIN 5,000 UNIT/1 ML VIAL SC SCH ×3 (05:33→22:00)
--- NOTE | 2018-04-13 06:21 | NUR ---
End of shift Report: Pt remains stable. NO sob. No resp distress. Afebrile. Complaint with meds .Wound care rendered as ordered. Pt was seen by Treatment nurse for partial open DTI on Sacrococcyx upon assessment on area it was noted with multiple open DTI (#1 1x1.5), (#2 0.7 x 0.8), (#3 0.3 x 0.4). Charge Nurse aware per Charge Nurse no need for consult again will endorse to am shift nurse if need to be seen again by treatment nurse. Kept clean and dry. Turned and repositioned. No acute events overnight. Needs attended and anticipated. Re-orient as needed. Slept well last night. Awaiting placement SNF VS Rehab. Will continue to monitor. Will endorse accordingly.
[2018-04-13] MEDS: PANTOPRAZOLE (EC) 40 MG TAB PO SCH ×2 (06:47→18:00)
[2018-04-13 08:01] VITALS: BP 115/64; PULSE 106; RESP 18
[2018-04-13] MEDS: DOCUSATE SODIUM 100 MG CAP PO SCH ×2 (09:40→20:28)
[2018-04-13] MEDS: QUETIAPINE 25 MG TAB PO SCH ×2 (09:40→20:28)
[2018-04-13] MEDS: MEMANTINE 10 MG TAB PO SCH (09:40)
[2018-04-13] MEDS: LISINOPRIL 5 MG TAB PO SCH (09:40)
[2018-04-13] MEDS: FUROSEMIDE 40 MG TAB PO SCH (09:40)
[2018-04-13] MEDS: ANASTROZOLE 1 MG TAB PO SCH (09:42)
[2018-04-13] MEDS: BALSAM PERU/CASTOR OIL 60 GM TUBE TOP SCH (09:50)
[2018-04-13] MEDS: PAROXETINE 20 MG TAB PO SCH ×2 (09:51→20:28)
[2018-04-13 14:06] VITALS: BP 108/60; RESP 16
--- NOTE | 2018-04-13 15:34 | NUR ---
DC PLANS UPDATE: DC ORDER IN PLACED BY ATTENDING . FF UP WITH SNF REFERRALS: JERRY BERMUDEZ DENIED ROSLYN DENIED BALDEV GRIFFIN DENIED JULIETA DENIED SPOKE TO SOFIA [phone] HIS SON NOTIFYING HIM RE NON ACCEPTANCE BECAUSE MEDICARE DAYS LIMITED 24 DAYS LEFT, [facility]ESE [facility] WANTS A SKILLED NURSING CARE, NO SECONDARY INSURANCE, PROVIDED SOFIA HAWKINS FINANCIAL COUNSELLOR TEL# FOR ASSISTANCE FOR MEDICAL INSURANCE APPLICATION. WILL FF UP WITH PHILL GRAHAM SUZE. Addendum: 04/13/18 at 1542 by Underground CellarOT CM Amended: Links added. Addendum: 04/13/18 at 1608 by Rapp IT Up REFERRED TO [facility] IN [facility] CON[facility]/ CALLED THERESE [facility] [phone] BUT THE MAIL BOX IS FULL.
--- NOTE | 2018-04-13 16:11 | PN ---
Date/Time of Note Date/Time of Note DATE: 04/13/18 TIME: 16:10 Assessment/Plan VTE Prophylaxis Risk score (from Ns)>0 risk: 8 SCD applied (from Nsg): Yes Pharmacological prophylaxis: heparin Lines/Catheters IV Catheter Type (from Nrs): Peripheral IV Urinary Cath still in place: No Assessment/Plan Hospital Course 87-year-old female with comorbidities including dementia, asthma, breast cancer who was at a [facility] and was brought to the emergency room secondary to sepsis with leukocytosis, febrile illness, and tachycardia, secondary to underlying urinary tract infection. Infection now resolved and she is awaiting placement at discharge. UTI: - resolved, s/p abx Asthma/COPD; -BDP, Breathing at baseline Breast cancer. -Continue Arimidex. Irregular nodule with spiculated borders within the left upper lobe measuring 2.51.8 cm. -Possible neoplastic disease, provided the patient's underlying history of breast cancer, outpatient follow-up Cardiomyopathy. -Left ventricular ejection fraction of 30% with severe global left ventricular systolic dysfunction and severe right ventricular hypokinesis. -Cardiology following. -Continue ACEI if BP permits. Pre-diabetes. -Hemoglobin A1C 5.9. -Random blood glucose within normal limits. Normocytic anemia. -Monitor Fluids, electrolytes, and nutrition. -Mechanical soft diet. Moderate protein-calorie malnutrition. -Dietary supplements. Prophylaxis: Heparin DC planning: Awaiting placement in halfway Result Diagram: 04/13/18 0423 04/13/18 0423 Results 24hrs Laboratory Tests Test 04/13/18 04:23 White Blood Count 10.5 # Red Blood Count 3.66 L Hemoglobin 9.9 L Hematocrit 30.0 L Mean Corpuscular Volume 82.0 Mean Corpuscular Hemoglobin 27.0 L Mean Corpuscular Hemoglobin Concent 33.0 Red Cell Distribution Width 15.4 H Platelet Count 599 H Mean Platelet Volume 8.8 Immature Granulocytes % 2.600 H Neutrophils % 67.2 Lymphocytes % 19.0 Monocytes % 8.7 Eosinophils % 2.0 Basophils % 0.5 Nucleated Red Blood Cells % 0.0 Immature Granulocytes # 0.270 H Neutrophils # 7.0 Lymphocytes # 2.0 Monocytes # 0.9 Eosinophils # 0.2 Basophils # 0.1 Nucleated Red Blood Cells # 0.0 Sodium Level 136 Potassium Level 4.9 Chloride Level 99 Carbon Dioxide Level 29 Anion Gap 8 Blood Urea Nitrogen 9 Creatinine 0.48 Est Glomerular Filtrat Rate mL/min Glucose Level 107 Calcium Level 9.4 Subjective 24 Hr Interval Summary Constitutional: no complaints Exam/Review of Systems Exam Vitals Vital Signs Date Temp Pulse Resp B/P (MAP) Pulse Ox O2 O2 Flow FiO2 Time Delivery Rate 04/13/18 98.3 16 108/60 99 14:06 (76) 04/13/18 106 08:01 04/13/18 Room Air 02:00 Intake and Output 04/12/18 04/12/18 04/13/18 1515:00 23:00 07:00 IntakeIntake Total 1480 ml 320 ml 300 ml BalanceBalance 1480 ml 320 ml 300 ml Constitutional: alert Respiratory: clear to auscultation Cardiovascular: regular rate and rhythm Gastrointestinal: soft; No distended Musculoskeletal: nl extremities to inspection Results Results 24hrs Laboratory Tests Test 04/13/18 04:23 White Blood Count 10.5 # Red Blood Count 3.66 L Hemoglobin 9.9 L Hematocrit 30.0 L Mean Corpuscular Volume 82.0 Mean Corpuscular Hemoglobin 27.0 L Mean Corpuscular Hemoglobin Concent 33.0 Red Cell Distribution Width 15.4 H Platelet Count 599 H Mean Platelet Volume 8.8 Immature Granulocytes % 2.600 H Neutrophils % 67.2 Lymphocytes % 19.0 Monocytes % 8.7 Eosinophils % 2.0 Basophils % 0.5 Nucleated Red Blood Cells % 0.0 Immature Granulocytes # 0.270 H Neutrophils # 7.0 Lymphocytes # 2.0 Monocytes # 0.9 Eosinophils # 0.2 Basophils # 0.1 Nucleated Red Blood Cells # 0.0 Sodium Level 136 Potassium Level 4.9 Chloride Level 99 Carbon Dioxide Level 29 Anion Gap 8 Blood Urea Nitrogen 9 Creatinine 0.48 Est Glomerular Filtrat Rate mL/min Glucose Level 107 Calcium Level 9.4 Medications Medication Current Medications IV Flush (NS 3 ml) 3 ml PER PROTOCOL IV ; Start 04/02/18 at 20:00 Acetaminophen (Tylenol Tab) 650 mg Q6H PRN PO PAIN LEVEL 1-3 OR FEVER Last administered on 04/12/18at 17:55; Admin Dose 650 MG; Start 04/02/18 at 20:00 Alprazolam (Xanax) 0.5 mg BID PRN PO ANXIETY Last administered on 04/04/18 01:00; Admin Dose 0.5 MG; Start 04/02/18 at 20:00 Anastrozole (Arimidex) 1 mg DAILY PO Last administered on 04/13/18 09:42; Admin Dose 1 MG; Start 04/03/18 at 09:00 Docusate Sodium (Colace) 100 mg BID PO Last administered on 04/13/18 09:40; Admin Dose 100 MG; Start 04/02/18 at 21:00 Furosemide (Lasix) 40 mg DAILY PO Last administered on 04/13/18 09:40; Admin Dose 40 MG; Start 04/03/18 at 09:00 Memantine (Namenda) 10 mg DAILY PO Last administered on 04/13/18 09:40; Admin Dose 10 MG; Start 04/03/18 at 09:00 Montelukast Sodium (Singulair) 10 mg QHS PO Last administered on 04/12/18 20:42; Admin Dose 10 MG; Start 04/02/18 at 21:00 Nitroglycerin (Nitroglycerin (Sl Tab) 0.4 Mg) 1 tab Q5M PRN SL CHEST PAIN; Start 04/02/18 at 20:00 Pantoprazole (Protonix Tab) 40 mg AC BREAKFAST DINNER PO Last administered on 04/13/18 06:47; Admin Dose 40 MG; Start 04/03/18 at 07:00 Paroxetine HCl (Paxil) 40 mg BID PO Last administered on 04/13/18 09:51; Admin Dose 40 MG; Start 04/02/18 at 21:00 Quetiapine Fumarate (Seroquel) 25 mg BID PO Last administered on 04/13/18 0 9:40; Admin Dose 25 MG; Start 04/02/18 at 21:00 IV Flush (NS 10 ml) 10 ml PRN PRN IV FLUSH LINE; Start 04/05/18 at 14:00 Heparin Sodium (Porcine) (Heparin (5000 Units/1ml)) 5,000 unit Q8 SC Last ad ministered on 04/13/18 14:09; Admin Dose 5,000 UNIT; Start 04/05/18 at 22:00 Lisinopril (Zestril) 5 mg DAILY PO Last administered on 04/13/18 09:40; Admin Dose 5 MG; Start 04/10/18 at 10:00 ROSALINA CONTRERAS Apr 13, 2018 16:10
[2018-04-13 20:00] VITALS: BP 107/58; PULSE 108; RESP 18
[2018-04-13] MEDS: MONTELUKAST 10 MG TAB PO SCH (20:27)
[2018-04-13] MEDS: ACETAMINOPHEN 325 MG TAB PO PRN (20:28)
--- NOTE | 2018-04-13 20:46 | NUR ---
A/O x4; VSS. takes meds whole, needs set up for meals, turns Q 2 hrs, Grimaces w/ turns to the left side, but denies pain otherwise. DC to SNF cancelled today ( see case mgt notes). Called wound care x 2 to reevaluate DTI - no answer. Changed allevyn to sacrum per current wound care recommendations. Please call tomorrow so that wound care can reassess patient's sacrum. Cont w/ care per care plan. Endorsed to oncoming RN.
[2018-04-14 02:00] VITALS: BP 96/58; PULSE 101; RESP 16
--- NOTE | 2018-04-14 04:09 | NUR ---
1914 Pt received aaox4, no s/s of distress, respirations regular and even. Pt oriented to oncoming dock coordinator nurse & [facility] safety protocols including an active bed alarm & hourly rounding. Pt verbalized understanding. Approx. 2029 Vitals signs stable, Pt complains of pain/discomfort of the Right hip, pt rated 4/10 medicated w/ Tylenol as ordered. Pt requires repositioning q2 hours & is incontinent of bowel & bladder. Order for DC to SNF 04/14/18. Scheduled medications administered one @ a time, whole with water w/o difficulty. 2199 Pt refused Heparin stated she, "doesn't want to be poked." Documented appropriately. 0000 Pt resting in bed comfortably, denies needs @ this time. Addendum: 04/14/18 at 0622 by ARGENTINA MJEÍA RN 0600 Pt slept well throughout the night, no significant changes noted in pt status. Pt kept clean and dry throughout the shift, repositioned q2 hours. Dressing changed completed on pt sacrum Venelex & Allevyn applied. Nursing will continue to monitor and endorse to morning shift to ensure continuity of care and pt safety. Addendum: 04/14/18 at 0755 by ARGENTINA MEJÍA RN 04/13/291914 As per previous DAYO Johnston no dentures were seen in pt mouth of in pt belongings although Sarbari identifies pt as having dentures. 04/13/181999 The pt belongings list documented on 04/02/18 does not state that dentures were included in pt belongings. Nursing staff searching for dentures and could not find any. 04/14/18 0600 No dentures were found. Charge nurse Beltran edmondson, day staff will call [facility] to check if dentures are there.
[2018-04-14] MEDS: BALSAM PERU/CASTOR OIL 60 GM TUBE TOP SCH ×3 (06:03→21:26)
[2018-04-14] MEDS: HEPARIN 5,000 UNIT/1 ML VIAL SC SCH ×3 (06:08→21:25)
--- NOTE | 2018-04-14 07:00 | NUR ---
According to the night nurse Patient's dentures missing.no any documentation in the belongins list. noticed dentures signed in the sbar sheet,checked all over the patient's room.Notified charge nurse Beltran regarding this .
[2018-04-14 07:55] VITALS: BP 123/67; PULSE 106; RESP 16
[2018-04-14] MEDS: DOCUSATE SODIUM 100 MG CAP PO SCH ×2 (09:51→20:38)
[2018-04-14] MEDS: QUETIAPINE 25 MG TAB PO SCH ×2 (09:51→20:38)
[2018-04-14] MEDS: MEMANTINE 10 MG TAB PO SCH (09:51)
[2018-04-14] MEDS: PANTOPRAZOLE (EC) 40 MG TAB PO SCH ×2 (09:52→17:35)
[2018-04-14] MEDS: FUROSEMIDE 40 MG TAB PO SCH (09:52)
[2018-04-14] MEDS: PAROXETINE 20 MG TAB PO SCH ×2 (09:52→20:40)
[2018-04-14] MEDS: LISINOPRIL 5 MG TAB PO SCH (09:52)
[2018-04-14] MEDS: ANASTROZOLE 1 MG TAB PO SCH (09:53)
[2018-04-14 14:10] VITALS: BP 118/61; PULSE 100; RESP 16
--- NOTE | 2018-04-14 16:09 | PN ---
Date/Time of Note Date/Time of Note DATE: 04/14/18 TIME: 16:08 Assessment/Plan VTE Prophylaxis Risk score (from Nsg)>0 risk: 3 SCD applied (from Nsg): Yes Pharmacological prophylaxis: heparin Lines/Catheters IV Catheter Type (from Nrsg): Peripheral IV Urinary Cath still in place: No Assessment/Plan Hospital Course 87-year-old female with comorbidities including dementia, asthma, breast cancer who was at a [id number] and was brought to the emergency room secondary to sepsis with leukocytosis, febrile illness, and tachycardia, secondary to underlying urinary tract infection. Infection now resolved and she is awaiting placement at discharge. UTI: - resolved, s/p abx Asthma/COPD; -BDP, Breathing at baseline Breast cancer. -Continue Arimidex. Irregular nodule with spiculated borders within the left upper lobe measuring 2.51.8 cm. -Possible neoplastic disease, provided the patient's underlying history of breast cancer, outpatient follow-up Cardiomyopathy. -Left ventricular ejection fraction of 30% with severe global left ventricular systolic dysfunction and severe right ventricular hypokinesis. -Cardiology following. -Continue ACEI if BP permits. Pre-diabetes. -Hemoglobin A1C 5.9. -Random blood glucose within normal limits. Normocytic anemia. -Monitor Fluids, electrolytes, and nutrition. -Mechanical soft diet. Moderate protein-calorie malnutrition. -Dietary supplements. Prophylaxis: Heparin DC planning: Awaiting placement in snf Result Diagram: 04/13/1842204/13/18422 Subjective 24 Hr Interval Summary Constitutional: no complaints Exam/Review of Systems Exam Vitals Vital Signs Date Temp Pulse Resp B/P (MAP) Pulse Ox O2 O2 Flow FiO2 Time Delivery Rate 04/14/18 98.1 100 16 118/61 97 14:10 (80) 04/14/18 Room Air 02:00 Intake and Output 04/13/18 04/13/18 04/14/18 1515:00 23:00 07:00 IntakeIntake Total 360 ml 1060 ml 150 ml BalanceBalance 360 ml 1060 ml 150 ml Constitutional: alert Respiratory: clear to auscultation Cardiovascular: regular rate and rhythm Gastrointestinal: soft; No distended Musculoskeletal: nl extremities to inspection Medications Medication Current Medications IV Flush (NS 3 ml) 3 ml PER PROTOCOL IV ; Start 04/02/18 at 20:00 Acetaminophen (Tylenol Tab) 650 mg Q6H PRN PO PAIN LEVEL 1-3 OR FEVER Last administered on 04/13/18 20:28; Admin Dose 650 MG; Start 04/02/18 at 20:00 Alprazolam (Xanax) 0.5 mg BID PRN PO ANXIETY Last administered on 04/04/18 01:00; Admin Dose 0.5 MG; Start 04/02/18 at 20:00 Anastrozole (Arimidex) 1 mg DAILY PO Last administered on 04/14/18 09:53; Admin Dose 1 MG; Start 04/03/18 at 09:00 Docusate Sodium (Colace) 100 mg BID PO Last administered on 04/14/18 09:51; Admin Dose 100 MG; Start 04/02/18 at 21:00 Furosemide (Lasix) 40 mg DAILY PO Last administered on 04/14/18 09:52; Admin Dose 40 MG; Start 04/03/18 at 09:00 Memantine (Namenda) 10 mg DAILY PO Last administered on 04/14/18 09:51; Admin Dose 10 MG; Start 04/03/18 at 09:00 Montelukast Sodium (Singulair) 10 mg QHS PO Last administered on 04/13/18 20:27; Admin Dose 10 MG; Start 04/02/18 at 21:00 Nitroglycerin (Nitroglycerin (Sl Tab) 0.4 Mg) 1 tab Q5M PRN SL CHEST PAIN; Start 04/02/18 at 20:00 Pantoprazole (Protonix Tab) 40 mg AC BREAKFAST DINNER PO Last administered on 04/14/18 09:52; Admin Dose 40 MG; Start 04/03/18 at 07:00 Paroxetine HCl (Paxil) 40 mg BID PO Last administered on 04/14/18 09:52; Admin Dose 40 MG; Start 04/02/18 at 21:00 Quetiapine Fumarate (Seroquel) 25 mg BID PO Last administered on 04/14/18 09:51; Admin Dose 25 MG; Start 04/02/18 at 21:00 IV Flush (NS 10 ml) 10 ml PRN PRN IV FLUSH LINE; Start 04/05/18 at 14:00 Heparin Sodium (Porcine) (Heparin (5000 Units/1ml)) 5,000 unit Q8 SC Last administered on 04/14/18at 13:47; Admin Dose 5,000 UNIT; Start 04/05/18 at 22:00 Lisinopril (Zestril) 5 mg DAILY PO Last administered on 04/14/18at 09:52; Admin Dose 5 MG; Start 04/10/18 at 10:00 ROSALINA CONTRERAS Apr 14, 2018 16:09
--- NOTE | 2018-04-14 16:36 | NUR ---
patient's family is here and asking the dentures .they said''last week i saw her dentures in her mouth while i was here,what happened now''Notified charge nurse Beltran regarding this and she said''endorse to the night nurse to tell Hanny tomorrow''will endorse to the night nurse to folow up with the dentures.Tried to call the previous facility.daughter said''no need to call them i saw dentures while she was here''
--- NOTE | 2018-04-14 16:50 | NUR ---
DC PLANS UPDATE: SPOKE SON AT BEDSIDE; ONGOING MEDICAL APPLICATION PROCESS WITH F/Stevie HAWKINS. OPTION FOR HOME, NOT POSSIBLE, LIVES IN BOARD AND CARE, NOW NEEDS 24 HRS CARE. WILL REFER BACK TO SNFS ONCE MEDICAL IS APPROVED. Addendum: 04/14/18 at 1653 by KATHE DEL ROSARIO CM Amended: Links added.
--- NOTE | 2018-04-14 18:51 | NUR ---
all needs met.no acute events.turned the patient q 2 hours and changed the dressing as ordered.call light within reach.bed alarm on.she is resting comfortably in bed.
--- NOTE | 2018-04-14 19:00 | NUR ---
endorsed the patient to facundo lazar with stable condition.Ask Anamika to notifty Hanny tomorrow per Charge nurse.
[2018-04-14 20:07] VITALS: BP 121/70; PULSE 120; RESP 18
[2018-04-14] MEDS: ACETAMINOPHEN 325 MG TAB PO PRN (20:38)
[2018-04-14] MEDS: MONTELUKAST 10 MG TAB PO SCH (20:38)
[2018-04-15 02:13] VITALS: BP 115/66; RESP 18
[2018-04-15] MEDS: HEPARIN 5,000 UNIT/1 ML VIAL SC SCH ×3 (06:10→21:30)
--- NOTE | 2018-04-15 07:36 | NUR ---
1914 1914 Pt received aaox4, no s/s of distress, respirations regular and even. Pt oriented to oncoming conversion developer nurse & [facility] safety protocols including an active bed alarm & hourly rounding. Pt verbalized understanding. Approx. 2030 Vitals signs stable, Pt grimaces in pain/discomfort of the Right hip, pt medicated w/ Tylenol as ordered. Pt requires repositioning q2 hours & is incontinent of bowel & bladder. Scheduled medications administered one @ a time, whole with water w/o difficulty. DTI of the saccrumm cleaned with saline, Venelex applied, and covered with an allyven. 0000 Pt resting comfortably, respirations regular and even, no s/s of distress. Allevyn applied to the back of the Left ear for a scab. Pt occasionally plays with bed settings by raising and lowering the height of the bed. Pt has not attempted to get out of bed. Call steven within reach, bed alarm active. Nursing will continue to monitor. 0600 Pt slept well throughout the night, all needs anticipated and met. Turned Q2 hours, kept clean and dry of incontinence. No significant changes noted in pt status, nursing will continue to monitor and endorse to morning shift to ensure pt safety and continuity of care. Pt pending discharge to SNF.
[2018-04-15] MEDS: ALPRAZOLAM 0.25 MG TAB PO PRN (08:23)
[2018-04-15] MEDS: MEMANTINE 10 MG TAB PO SCH (08:23)
[2018-04-15] MEDS: PANTOPRAZOLE (EC) 40 MG TAB PO SCH ×2 (08:23→17:51)
[2018-04-15] MEDS: PAROXETINE 20 MG TAB PO SCH ×2 (08:24→21:28)
[2018-04-15] MEDS: DOCUSATE SODIUM 100 MG CAP PO SCH ×2 (08:25→21:28)
[2018-04-15] MEDS: QUETIAPINE 25 MG TAB PO SCH ×2 (08:25→21:28)
[2018-04-15] MEDS: ANASTROZOLE 1 MG TAB PO SCH (08:26)
[2018-04-15] MEDS: LISINOPRIL 5 MG TAB PO SCH (08:28)
[2018-04-15 08:29] VITALS: BP 136/62; PULSE 100; RESP 18
[2018-04-15] MEDS: FUROSEMIDE 40 MG TAB PO SCH (08:30)
[2018-04-15] MEDS: BALSAM PERU/CASTOR OIL 60 GM TUBE TOP SCH ×2 (08:30→21:31)
--- NOTE | 2018-04-15 09:20 | NUR ---
PT note Therapy day number 2 Subjective Current complaint of pain Pain Scale FACES Pain Intensity 7 (0-10) Patient Stated Goal for Pain Relief 0 (0-10) Pain Level Comment R hip with movement Exercise Assessment Label Bilat Lower Extremity Exercise Type Active Assist ROM Additional Exercise Comments heel slides, hip ABD, SLR, ankle pumps Exercise Start Time 09:20 Exercise End Time 09:45 Total Exercise Time 25 min (8-127) Safety Judgement Poor Activity Tolerance Poor Equipment Present A pump IV pump Post Treatment Pain Intensity 0 0-10 Additional Post Treatment Comment See note Total Treament Time 25 min (8-127) Total Minutes 25 Total Units 2 PT Technical Record Comment S; Pt in bed, agreeable to PT intervention, cleared for PT per RN O: PT intervention completed, pt performed bed ther-ex only and educated on positioning of R hip throughout. Spoke to RN regarding pt response to activity and PT plan of care. No reports of dizziness, or shortness of breath. Pain with R hip movement, with empty end feel. Patient back in bed, all needs met, bed alarm activated, and call light within reach,. A: Patient presents with substantial R hip external rotation, knee flexion due to pain in R hip. Patient required mod encouragement and physical assist to return RLE to neutral position with significant muscle guarding throughout. patient inconsistantly receptive to PT instruction and AAROM limited due to pain noted with empty end feel. P: progress transfers as tolerated, 2P assist for safety
[2018-04-15 14:00] VITALS: BP 128/62; PULSE 96; RESP 18
--- NOTE | 2018-04-15 14:07 | PN ---
Date/Time of Note Date/Time of Note DATE: 04/15/18 TIME: 14:06 Assessment/Plan VTE Prophylaxis Risk score (from Nsg)>0 risk: 8 SCD applied (from Nsg): Yes Pharmacological prophylaxis: heparin Lines/Catheters IV Catheter Type (from Nrsg): Peripheral IV Urinary Cath still in place: No Assessment/Plan Hospital Course 87-year-old female with comorbidities including dementia, asthma, breast cancer who was [facility] a [facility] and was brought to the emergency room secondary to sepsis with leukocytosis, febrile illness, and tachycardia, secondary to underlying urinary tract infection. Infection now resolved and she is awaiting placement at discharge. UTI: - resolved, s/p abx Asthma/COPD; -BDP, Breathing at baseline Breast cancer. -Continue Arimidex. Irregular nodule with spiculated borders within the left upper lobe measuring 2.51.8 cm. -Possible neoplastic disease, provided the patient's underlying history of breast cancer, outpatient follow-up Cardiomyopathy. -Left ventricular ejection fraction of 30% with severe global left ventricular systolic dysfunction and severe right ventricular hypokinesis. -Cardiology following. -Continue ACEI if BP permits. Pre-diabetes. -Hemoglobin A1C 5.9. -Random blood glucose within normal limits. Normocytic anemia. -Monitor Fluids, electrolytes, and nutrition. -Mechanical soft diet. Moderate protein-calorie malnutrition. -Dietary supplements. Prophylaxis: Heparin DC planning: Awaiting placement in [place] [facility] Result Diagram: 04/13/1842204/13/18 042 Subjective 24 Hr Interval Summary Constitutional: no complaints Exam/Review of Systems Exam Vitals Vital Signs Date Temp Pulse Resp B/P (MAP) Pulse Ox O2 O2 Flow FiO2 Time Delivery Rate 04/15/18 98.6 100 18 136/62 96 Room Air 08:29 (86) Intake and Output 04/14/18 04/14/18 04/15/18 1515:00 23:00 07:00 IntakeIntake Total 300 ml 500 ml 300 ml BalanceBalance 300 ml 500 ml 300 ml Constitutional: alert Respiratory: clear to auscultation Cardiovascular: regular rate and rhythm Gastrointestinal: soft; No distended Musculoskeletal: nl extremities to inspection Medications Medication Current Medications IV Flush (NS 3 ml) 3 ml PER PROTOCOL IV ; Start 04/02/18 at 20:00 Acetaminophen (Tylenol Tab) 650 mg Q6H PRN PO PAIN LEVEL 1-3 OR FEVER Last administered on 04/14/18 20:38; Admin Dose 650 MG; Start 04/02/18 at 20:00 Alprazolam (Xanax) 0.5 mg BID PRN PO ANXIETY Last administered on 04/15/18 08:23; Admin Dose 0.5 MG; Start 04/02/18 at 20:00 Anastrozole (Arimidex) 1 mg DAILY PO Last administered on 04/15/18 08:26; Admin Dose 1 MG; Start 04/03/18 at 09:00 Docusate Sodium (Colace) 100 mg BID PO Last administered on 04/15/18 08:25; Admin Dose 100 MG; Start 04/02/18 at 21:00 Furosemide (Lasix) 40 mg DAILY PO Last administered on 04/15/18 08:30; Admin Dose 40 MG; Start 04/03/18 at 09:00 Memantine (Namenda) 10 mg DAILY PO Last administered on 04/15/18 08:23; Admin Dose 10 MG; Start 04/03/18 at 09:00 Montelukast Sodium (Singulair) 10 mg QHS PO Last administered on 04/14/18 20:38; Admin Dose 10 MG; Start 04/02/18 at 21:00 Nitroglycerin (Nitroglycerin (Sl Tab) 0.4 Mg) 1 tab Q5M PRN SL CHEST PAIN; Start 04/02/18 at 20:00 Pantoprazole (Protonix Tab) 40 mg AC BREAKFAST DINNER PO Last administered on 04/15/18 08:23; Admin Dose 40 MG; Start 04/03/18 at 07:00 Paroxetine HCl (Paxil) 40 mg BID PO Last administered on 04/15/18 08:24; Admin Dose 40 MG; Start 04/02/18 at 21:00 Quetiapine Fumarate (Seroquel) 25 mg BID PO Last administered on 04/15/18 08:25; Admin Dose 25 MG; Start 04/02/18 at 21:00 IV Flush (NS 10 ml) 10 ml PRN PRN IV FLUSH LINE; Start 04/05/18 at 14:00 Heparin Sodium (Porcine) (Heparin (5000 Units/1ml)) 5,000 unit Q8 SC Last administered on 1/31/19at 13:14; Admin Dose 5,000 UNIT; Start 04/05/18 at 22:00 Lisinopril (Zestril) 5 mg DAILY PO Last administered on 04/15/18at 08:28; Admin Dose 5 MG; Start 04/10/18 at 10:00 ROSALINA CONTRERAS Apr 15, 2018 14:07
[2018-04-15] MEDS: ACETAMINOPHEN 325 MG TAB PO PRN (17:51)
--- NOTE | 2018-04-15 18:30 | NUR ---
Patient is alert, awake and verbally responsive. Respiration are even and non labored. Reposition every 2 hours. Attended all needs. Maintain clean and dry. Per case investigator discharge authorization is still pending at this time. Addendum: 04/15/18 at 1834 by LAURO SUNSHINE RN Stable condition. Will endorse accordingly.
[2018-04-15 20:44] VITALS: BP 90/54; PULSE 111; RESP 16
[2018-04-15] MEDS: MONTELUKAST 10 MG TAB PO SCH (21:28)
[2018-04-16 02:29] VITALS: BP 92/48; PULSE 69; RESP 16
--- NOTE | 2018-04-16 04:08 | NUR ---
1914 Pt received awake, alert, oriented x3 [place] & [place] speaking. Pt oriented to [facility] and [facility] safety protocol including an active bed alarm and hourly rounding. Pt verbalized understanding. 2129 All scheduled medications administered whole with water one at a times, without difficulty. Heparin administered SQ. No s/s of distress noted, pt resting comfortably in bed, nursing to change dressing on sacrum. Pt is incontinent of bowel and bladder, and requires repositioning q2 hours. Pt complains of pain when repositioned, nursing will continue to monitor. 0000 Pt kept clean and dry by RN & REMOTE OPERATIONS PRODUCER. Pt denies needs at this time. Addendum: 04/16/18 at 0738 by ARGENTINA MEJÍA RN 0600 No significant changes noted in pt status throughout the shift. Nursing will continue to monitor and endorse to morning shift to ensure pt safety and continuity of care. 0700 Pt endorsed to Rebeca OSHEA.
[2018-04-16] MEDS: HEPARIN 5,000 UNIT/1 ML VIAL SC SCH ×3 (06:37→21:07)
[2018-04-16] MEDS: ACETAMINOPHEN 325 MG TAB PO PRN (06:37)
[2018-04-16] MEDS: QUETIAPINE 25 MG TAB PO SCH ×2 (08:26→20:00)
[2018-04-16] MEDS: MEMANTINE 10 MG TAB PO SCH (08:26)
[2018-04-16] MEDS: PANTOPRAZOLE (EC) 40 MG TAB PO SCH ×2 (08:26→16:30)
[2018-04-16] MEDS: PAROXETINE 20 MG TAB PO SCH ×2 (08:27→20:00)
[2018-04-16] MEDS: FUROSEMIDE 40 MG TAB PO SCH (08:27)
[2018-04-16] MEDS: DOCUSATE SODIUM 100 MG CAP PO SCH ×2 (08:27→20:00)
[2018-04-16] MEDS: LISINOPRIL 5 MG TAB PO SCH (08:28)
[2018-04-16] MEDS: BALSAM PERU/CASTOR OIL 60 GM TUBE TOP SCH ×2 (08:28→20:02)
[2018-04-16] MEDS: ALPRAZOLAM 0.25 MG TAB PO PRN (08:29)
[2018-04-16] MEDS: ANASTROZOLE 1 MG TAB PO SCH (08:31)
[2018-04-16 08:45] VITALS: BP 108/58; PULSE 107; RESP 17
--- NOTE | 2018-04-16 14:21 | PN ---
Date/Time of Note Date/Time of Note DATE: 04/16/18 TIME: 14:21 Assessment/Plan VTE Prophylaxis Risk score (from Nsg)>0 risk: 8 SCD applied (from Nsg): Yes Pharmacological prophylaxis: heparin Lines/Catheters IV Catheter Type (from Nrsg): Peripheral IV Urinary Cath still in place: No Assessment/Plan Hospital Course 87-year-old female with comorbidities including dementia, asthma, breast cancer who was at a [facility] and was brought to the emergency room secondary to sepsis with leukocytosis, febrile illness, and tachycardia, secondary to underlying urinary tract infection. Infection now resolved and she is awaiting placement at discharge. UTI: - resolved, s/p abx Asthma/COPD; -BDP, Breathing at baseline Breast cancer. -Continue Arimidex. Irregular nodule with spiculated borders within the left upper lobe measuring 2.51.8 cm. -Possible neoplastic disease, provided the patient's underlying history of breast cancer, outpatient follow-up Cardiomyopathy. -Left ventricular ejection fraction of 30% with severe global left ventricular systolic dysfunction and severe right ventricular hypokinesis. -Cardiology following. -Continue ACEI if BP permits. Pre-diabetes. -Hemoglobin A1C 5.9. -Random blood glucose within normal limits. Normocytic anemia. -Monitor Fluids, electrolytes, and nutrition. -Mechanical soft diet. Moderate protein-calorie malnutrition. -Dietary supplements. Prophylaxis: Heparin DC planning: Awaiting placement in longterm Result Diagram: 04/13/1842204/13/18 042 Subjective 24 Hr Interval Summary Constitutional: no complaints Exam/Review of Systems Exam Vitals Vital Signs Date Temp Pulse Resp B/P (MAP) Pulse Ox O2 O2 Flow FiO2 Time Delivery Rate 04/16/18 98.3 107 17 108/58 95 08:45 (75) 04/15/18 Room Air 08:29 Intake and Output 04/15/18 04/15/18 04/16/18 1414:59 22:59 06:59 IntakeIntake Total 360 ml 240 ml 240 ml BalanceBalance 360 ml 240 ml 240 ml Constitutional: alert Respiratory: clear to auscultation Cardiovascular: regular rate and rhythm Gastrointestinal: soft; No distended Musculoskeletal: nl extremities to inspection Medications Medication Current Medications IV Flush (NS 3 ml) 3 ml PER PROTOCOL IV ; Start 04/02/18 at 20:00 Acetaminophen (Tylenol Tab) 650 mg Q6H PRN PO PAIN LEVEL 1-3 OR FEVER Last administered on 04/16/18 06:37; Admin Dose 650 MG; Start 04/02/18 at 20:00 Alprazolam (Xanax) 0.5 mg BID PRN PO ANXIETY Last administered on 04/16/18 08:29; Admin Dose 0.5 MG; Start 04/02/18 at 20:00 Anastrozole (Arimidex) 1 mg DAILY PO Last administered on 04/16/18 08:31; Admin Dose 1 MG; Start 04/03/18 at 09:00 Docusate Sodium (Colace) 100 mg BID PO Last administered on 04/16/18 08:27; Admin Dose 100 MG; Start 04/02/18 at 21:00 Furosemide (Lasix) 40 mg DAILY PO Last administered on 04/16/18 08:27; Admin Dose 40 MG; Start 04/03/18 at 09:00 Memantine (Namenda) 10 mg DAILY PO Last administered on 04/16/18 08:26; Admin Dose 10 MG; Start 04/03/18 at 09:00 Montelukast Sodium (Singulair) 10 mg QHS PO Last administered on 04/15/18 21:28; Admin Dose 10 MG; Start 04/02/18 at 21:00 Nitroglycerin (Nitroglycerin (Sl Tab) 0.4 Mg) 1 tab Q5M PRN SL CHEST PAIN; Start 04/02/18 at 20:00 Pantoprazole (Protonix Tab) 40 mg AC BREAKFAST DINNER PO Last administered on 04/16/18 08:26; Admin Dose 40 MG; Start 04/03/18 at 07:00 Paroxetine HCl (Paxil) 40 mg BID PO Last administered on 04/16/18 08:27; Admin Dose 40 MG; Start 04/02/18 at 21:00 Quetiapine Fumarate (Seroquel) 25 mg BID PO Last administered on 04/16/18 08:26; Admin Dose 25 MG; Start 04/02/18 at 21:00 IV Flush (NS 10 ml) 10 ml PRN PRN IV FLUSH LINE; Start 04/05/18 at 14:00 Heparin Sodium (Porcine) (Heparin (5000 Units/1ml)) 5,000 unit Q8 SC Last administered on 04/16/18at 06:37; Admin Dose 5,000 UNIT; Start 04/05/18 at 22:00 Lisinopril (Zestril) 5 mg DAILY PO Last administered on 04/16/18at 08:28; Admin Dose 5 MG; Start 04/10/18 at 10:00 ROSALINA CONTRERAS Apr 16, 2018 14:21
[2018-04-16 15:24] VITALS: BP 92/50; PULSE 106; RESP 18
--- NOTE | 2018-04-16 17:56 | NUR ---
Patient is awake alert and verbally responsive. Respiration are even and non labored. No acute distress or discomfort noted during this shift. Reposition every 2 hours. Attended all needs. Maintain clean and dry. Wound care rendered. No s/s of infection noted. Tolerated well. No significant changes noted. Still waiting for placement.
[2018-04-16 19:44] VITALS: BP 108/68; PULSE 111; RESP 18
[2018-04-16] MEDS: MONTELUKAST 10 MG TAB PO SCH (20:00)
--- NOTE | 2018-04-16 23:55 | NUR ---
1914 Pt received aaox4, verbally responsive,no s/s of distress, respirations regular and even, pt resting comfortably in bed. Pt oriented on coming RN and CASTING TRUCKER as well as [facility] safety protocol including an active bed alarm and hourly rounding. Pt verbalized understanding. 1999 Scheduled medications administered w/o difficulty swallowed whole with water one at a time. Pt denies pain at this time. 2099 Heparin administered SQ, pt tolerated well. Pt incontinent of bowel & bladder, kept clean and dry by RN & CASTING TRUCKER. Pt turned q2 hours. Nursing will continue to monitor throughout the night. Addendum: 04/17/18 at 0051 by ARGENTINA MEJÍA RN 0000 Pt repositioned with turn team, Damián GLEZ appeared light pink in color and healed, cleansed with saline, Venelex applied and Allevyn in place. Pt continues to self reposition herself on to the left side. Charge nurse aware. Preventative Allevyns applied to bilateral heels, skin intact, no s/s of breakdown noted. Nursing will continue to monitor. Addendum: 04/17/18 at 0052 by ARGENTINA MEJÍA RN 0000 Pt changed, Kept clean and dry. BM noted. Addendum: 04/17/18 at 0705 by ARGENTINA MEJÍA RN 0600 No significant changes noted in pt status throughout the shift. Nursing will continue to monitor and endorse to morning shift to ensure pt safety and continuity of care. 0700 Endorsed to Rebeca.
[2018-04-17 01:53] VITALS: BP 103/58; PULSE 114; RESP 20
[2018-04-17] MEDS: HEPARIN 5,000 UNIT/1 ML VIAL SC SCH ×3 (06:07→21:08)
[2018-04-17] MEDS: DOCUSATE SODIUM 100 MG CAP PO SCH ×2 (08:13→20:48)
[2018-04-17] MEDS: PANTOPRAZOLE (EC) 40 MG TAB PO SCH ×2 (08:13→17:41)
[2018-04-17] MEDS: MEMANTINE 10 MG TAB PO SCH (08:13)
[2018-04-17] MEDS: ALPRAZOLAM 0.25 MG TAB PO PRN (08:13)
[2018-04-17] MEDS: QUETIAPINE 25 MG TAB PO SCH ×2 (08:14→20:48)
[2018-04-17] MEDS: PAROXETINE 20 MG TAB PO SCH ×2 (08:14→20:48)
[2018-04-17] MEDS: ANASTROZOLE 1 MG TAB PO SCH (08:14)
[2018-04-17] MEDS: FUROSEMIDE 40 MG TAB PO SCH (08:17)
[2018-04-17] MEDS: LISINOPRIL 5 MG TAB PO SCH (08:17)
[2018-04-17] MEDS: BALSAM PERU/CASTOR OIL 60 GM TUBE TOP SCH ×2 (08:17→20:49)
[2018-04-17 08:18] VITALS: BP 125/63; PULSE 110; RESP 18
--- NOTE | 2018-04-17 10:40 | NUR ---
PT NOTES Patient: Joanna Lott : 1930 Age/Sex: 88/F Unit#: [id number] Room/Bed: [facility]/A User: Channing Jaeger PTA Date: 04/17/18 10:40 Type: PT Technical Record Therapy day number 3 Subjective Current complaint of pain Pain Scale FACES Pain Intensity 5 (0-10) Patient Stated Goal for Pain Relief 0 (0-10) Pain Level Comment WITH MOVEMENT Exercise Assessment Label Bilat Lower Extremity Exercise Type Active Assist ROM Exercise Start Time 10:00 Exercise End Time 10:15 Total Exercise Time 15 min (8-127) Transfer Training Start Time 10:15 Supine to Sit Maximum Assist Transfer Sit to Stand Ability Maximum Assist Bed Mobility Sit to Supine Maximum Assist Sitting Tolerance 12 min Transfer Training End Time 10:38 Total Transfer Training Time 23 min (8-127) Static Sitting Balance Fair minus Dynamic Sitting Balance Poor plus Standing Static Balance Poor Dynamic Standing Balance Poor Safety Judgement Poor Activity Tolerance Poor Equipment Present A pump IV pump Post Treatment Pain Intensity 5 0-10 Total Treament Time 38 min (8-127) Total Minutes 38 Total Units 3 PT Technical Record Comment PT NOTES: SAME TREATMENT PLAN GIVEN; SITTED APPROX 12 MIN AT EDGE OF BED TODAY; SIT TO STAND AT MAX ASSIST; EASILY FATIGUES; NEEDS LONG REST PERIOD BETWEEN ACTIVITIES; WILL CONTINUE CURRENT PLAN OF CARE.
--- NOTE | 2018-04-17 10:50 | PN ---
Date/Time of Note Date/Time of Note DATE: 04/17/18 TIME: 10:50 Assessment/Plan VTE Prophylaxis Risk score (from Nsg)>0 risk: 8 SCD applied (from Nsg): Yes Pharmacological prophylaxis: heparin Lines/Catheters IV Catheter Type (from Nrsg): Peripheral IV Urinary Cath still in place: No Assessment/Plan Hospital Course 87-year-old female with comorbidities including dementia, asthma, breast cancer who was at a [id number] and was brought to the emergency room secondary to sepsis with leukocytosis, febrile illness, and tachycardia, secondary to underlying urinary tract infection. Infection now resolved and she is awaiting placement at discharge. UTI: - resolved, s/p abx Asthma/COPD; -BDP, Breathing at baseline Breast cancer. -Continue Arimidex. Irregular nodule with spiculated borders within the left upper lobe measuring 2.51.8 cm. -Possible neoplastic disease, provided the patient's underlying history of breast cancer, outpatient follow-up Cardiomyopathy. -Left ventricular ejection fraction of 30% with severe global left ventricular systolic dysfunction and severe right ventricular hypokinesis. -Cardiology following. -Continue ACEI if BP permits. Pre-diabetes. -Hemoglobin A1C 5.9. -Random blood glucose within normal limits. Normocytic anemia. -Monitor Fluids, electrolytes, and nutrition. -Mechanical soft diet. Moderate protein-calorie malnutrition. -Dietary supplements. Prophylaxis: Heparin DC planning: Awaiting placement in [facility] Result Diagram: 04/13/1842204/13/18422 Subjective 24 Hr Interval Summary Constitutional: no complaints Exam/Review of Systems Exam Vitals Vital Signs Date Temp Pulse Resp B/P (MAP) Pulse Ox O2 O2 Flow FiO2 Time Delivery Rate 04/17/18 98.2 110 18 125/63 95 Room Air 08:18 (83) Intake and Output 04/16/18 04/16/18 04/17/18 1515:00 23:00 07:00 IntakeIntake Total 480 ml 240 ml BalanceBalance 480 ml 240 ml Constitutional: alert Respiratory: clear to auscultation Cardiovascular: regular rate and rhythm Gastrointestinal: soft; No distended Musculoskeletal: nl extremities to inspection Medications Medication Current Medications IV Flush (NS 3 ml) 3 ml PER PROTOCOL IV ; Start 04/02/18 at 20:00 Acetaminophen (Tylenol Tab) 650 mg Q6H PRN PO PAIN LEVEL 1-3 OR FEVER Last administered on 04/16/18 06:37; Admin Dose 650 MG; Start 04/02/18 at 20:00 Alprazolam (Xanax) 0.5 mg BID PRN PO ANXIETY Last administered on 04/17/18 08:13; Admin Dose 0.5 MG; Start 04/02/18 at 20:00 Anastrozole (Arimidex) 1 mg DAILY PO Last administered on 04/17/18 08:14; Admin Dose 1 MG; Start 04/03/18 at 09:00 Docusate Sodium (Colace) 100 mg BID PO Last administered on 04/17/18 08:13; Admin Dose 100 MG; Start 04/02/18 at 21:00 Furosemide (Lasix) 40 mg DAILY PO Last administered on 04/17/18 08:17; Admin Dose 40 MG; Start 04/03/18 at 09:00 Memantine (Namenda) 10 mg DAILY PO Last administered on 04/17/18 08:13; Admin Dose 10 MG; Start 04/03/18 at 09:00 Montelukast Sodium (Singulair) 10 mg QHS PO Last administered on 04/16/18 20:00; Admin Dose 10 MG; Start 04/02/18 at 21:00 Nitroglycerin (Nitroglycerin (Sl Tab) 0.4 Mg) 1 tab Q5M PRN SL CHEST PAIN; Start 04/02/18 at 20:00 Pantoprazole (Protonix Tab) 40 mg AC BREAKFAST DINNER PO Last administered on 04/17/18 08:13; Admin Dose 40 MG; Start 04/03/18 at 07:00 Paroxetine HCl (Paxil) 40 mg BID PO Last administered on 04/17/18 08:14; Admin Dose 40 MG; Start 04/02/18 at 21:00 Quetiapine Fumarate (Seroquel) 25 mg BID PO Last administered on 04/17/18 08:14; Admin Dose 25 MG; Start 04/02/18 at 21:00 IV Flush (NS 10 ml) 10 ml PRN PRN IV FLUSH LINE; Start 04/05/18 at 14:00 Heparin Sodium (Porcine) (Heparin (5000 Units/1ml)) 5,000 unit Q8 SC Last administered on 2/2/19at 06:07; Admin Dose 5,000 UNIT; Start 04/05/18 at 22:00 Lisinopril (Zestril) 5 mg DAILY PO Last administered on 04/17/18at 08:17; Admin Dose 5 MG; Start 04/10/18 at 10:00 ROSALINA CONTRERAS Apr 17, 2018 10:50
[2018-04-17 14:00] VITALS: BP 113/65; PULSE 108; RESP 19
--- NOTE | 2018-04-17 18:07 | NUR ---
patient is alert, awake and verbally responsive. Respiration are even and non labored. No acute distress or discomfort noted. Reposition every 2 hours but patient repositioning herself after leaving the room. Wound care rendered. Tolerated well. Alevyn applied in both heels for prevention. Tolerated well. Will endorse accordingly.
[2018-04-17 20:31] VITALS: BP 111/61; PULSE 94; RESP 18
[2018-04-17] MEDS: MONTELUKAST 10 MG TAB PO SCH (20:48)
[2018-04-18 02:28] VITALS: BP 112/73; PULSE 99; RESP 20
[2018-04-18] MEDS: PANTOPRAZOLE (EC) 40 MG TAB PO SCH ×2 (06:15→17:35)
[2018-04-18] MEDS: HEPARIN 5,000 UNIT/1 ML VIAL SC SCH ×3 (06:15→22:01)
[2018-04-18] MEDS: ACETAMINOPHEN 325 MG TAB PO PRN (08:03)
[2018-04-18] MEDS: PAROXETINE 20 MG TAB PO SCH ×2 (08:04→21:59)
[2018-04-18] MEDS: DOCUSATE SODIUM 100 MG CAP PO SCH ×2 (08:04→21:59)
[2018-04-18] MEDS: MEMANTINE 10 MG TAB PO SCH (08:04)
[2018-04-18] MEDS: ANASTROZOLE 1 MG TAB PO SCH (08:04)
[2018-04-18] MEDS: LISINOPRIL 5 MG TAB PO SCH (08:06)
[2018-04-18] MEDS: FUROSEMIDE 40 MG TAB PO SCH (08:06)
[2018-04-18] MEDS: BALSAM PERU/CASTOR OIL 60 GM TUBE TOP SCH ×2 (08:06→22:01)
[2018-04-18] MEDS: QUETIAPINE 25 MG TAB PO SCH ×2 (08:07→21:59)
[2018-04-18 08:18] VITALS: BP 121/66; PULSE 109; RESP 18
--- NOTE | 2018-04-18 10:47 | NUR ---
Found patient remove the allevyn protection from her heels and chew the plastic. Patient able to spit out the plastic. Explain risk and benefits. No significant changes noted. Will continue to monitor. Remove patient heels allevyn.
--- NOTE | 2018-04-18 12:03 | PN ---
Date/Time of Note Date/Time of Note DATE: 04/18/18 TIME: 12:02 Assessment/Plan VTE Prophylaxis Risk score (from Nsg)>0 risk: 8 SCD applied (from Nsg): Yes Pharmacological prophylaxis: heparin Lines/Catheters IV Catheter Type (from Nrsg): Peripheral IV Urinary Cath still in place: No Assessment/Plan Hospital Course 87-year-old female with comorbidities including dementia, asthma, breast cancer who was at a [id number] and was brought to the emergency room secondary to sepsis with leukocytosis, febrile illness, and tachycardia, secondary to underlying urinary tract infection. Infection now resolved and she is awaiting placement at discharge. UTI: - resolved, s/p abx Asthma/COPD; -BDP, Breathing at baseline Breast cancer. -Continue Arimidex. Irregular nodule with spiculated borders within the left upper lobe measuring 2.51.8 cm. -Possible neoplastic disease, provided the patient's underlying history of breast cancer, outpatient follow-up Cardiomyopathy. -Left ventricular ejection fraction of 30% with severe global left ventricular systolic dysfunction and severe right ventricular hypokinesis. -Cardiology following. -Continue ACEI if BP permits. Pre-diabetes. -Hemoglobin A1C 5.9. -Random blood glucose within normal limits. Normocytic anemia. -Monitor Fluids, electrolytes, and nutrition. -Mechanical soft diet. Moderate protein-calorie malnutrition. -Dietary supplements. Prophylaxis: Heparin DC planning: [facility] Subjective 24 Hr Interval Summary Constitutional: no complaints Exam/Review of Systems Exam Vitals Vital Signs Date Temp Pulse Resp B/P (MAP) Pulse Ox O2 O2 Flow FiO2 Time Delivery Rate 04/18/18 97.0 109 18 121/66 93 Room Air 08:18 (84) Intake and Output 04/17/18 04/17/18 04/18/18 1515:00 23:00 07:00 IntakeIntake Total 500 ml 200 ml 250 ml BalanceBalance 500 ml 200 ml 250 ml Constitutional: alert Respiratory: clear to auscultation Cardiovascular: regular rate and rhythm Gastrointestinal: soft; No distended Musculoskeletal: nl extremities to inspection Medications Medication Current Medications IV Flush (NS 3 ml) 3 ml PER PROTOCOL IV ; Start 04/02/18 at 20:00 Acetaminophen (Tylenol Tab) 650 mg Q6H PRN PO PAIN LEVEL 1-3 OR FEVER Last administered on 2/3/19at 08:03; Admin Dose 650 MG; Start 04/02/18 at 20:00 Alprazolam (Xanax) 0.5 mg BID PRN PO ANXIETY Last administered on 04/17/18 08:13; Admin Dose 0.5 MG; Start 04/02/18 at 20:00 Anastrozole (Arimidex) 1 mg DAILY PO Last administered on 04/18/18 08:04; Admin Dose 1 MG; Start 04/03/18 at 09:00 Docusate Sodium (Colace) 100 mg BID PO Last administered on 04/18/18 08:04; Admin Dose 100 MG; Start 04/02/18 at 21:00 Furosemide (Lasix) 40 mg DAILY PO Last administered on 04/18/18 08:06; Admin Dose 40 MG; Start 04/03/18 at 09:00 Memantine (Namenda) 10 mg DAILY PO Last administered on 04/18/18 08:04; Admin Dose 10 MG; Start 04/03/18 at 09:00 Montelukast Sodium (Singulair) 10 mg QHS PO Last administered on 04/17/18 20:48; Admin Dose 10 MG; Start 04/02/18 at 21:00 Nitroglycerin (Nitroglycerin (Sl Tab) 0.4 Mg) 1 tab Q5M PRN SL CHEST PAIN; Start 04/02/18 at 20:00 Pantoprazole (Protonix Tab) 40 mg AC BREAKFAST DINNER PO Last administered on 04/18/18 06:15; Admin Dose 40 MG; Start 04/03/18 at 07:00 Paroxetine HCl (Paxil) 40 mg BID PO Last administered on 04/18/18 08:04; Admin Dose 40 MG; Start 04/02/18 at 21:00 Quetiapine Fumarate (Seroquel) 25 mg BID PO Last administered on 04/18/18 08:07; Admin Dose 25 MG; Start 04/02/18 at 21:00 IV Flush (NS 10 ml) 10 ml PRN PRN IV FLUSH LINE; Start 04/05/18 at 14:00 Heparin Sodium (Porcine) (Heparin (5000 Units/1ml)) 5,000 unit Q8 SC Last administered on 04/18/18 06:15; Admin Dose 5,000 UNIT; Start 04/05/18 at 22:00 Lisinopril (Zestril) 5 mg DAILY PO Last administered on 04/18/18at 08:06; Admin Dose 5 MG; Start 04/10/18 at 10:00 ROSALINA CONTRERAS Apr 18, 2018 12:03
[2018-04-18 14:33] VITALS: BP_SYST 121; BP_SYST 125; BP_DIAS 66; BP_DIAS 70; PULSE 109; PULSE 90; RESP 18
--- NOTE | 2018-04-18 18:01 | NUR ---
Patient is alert, awake and verbally responsive. Respiration are even and non labored. No acute distress or discomfort noted. Patient is removing her Allevyn in her buttocks. Explain to patient risk and benefits. Maintain clean and dry. Attended all needs. No significant changes noted. Discharge still pending. Will endorse accordingly.
[2018-04-18 20:00] VITALS: BP 109/59; PULSE 114; RESP 19
[2018-04-18] MEDS: MONTELUKAST 10 MG TAB PO SCH (21:59)
[2018-04-19 02:00] VITALS: BP 116/62; PULSE 115; RESP 18
[2018-04-19] MEDS: HEPARIN 5,000 UNIT/1 ML VIAL SC SCH ×3 (06:52→21:35)
[2018-04-19] MEDS: PANTOPRAZOLE (EC) 40 MG TAB PO SCH ×2 (06:53→17:39)
--- NOTE | 2018-04-19 07:46 | NUR ---
Pt is alert and oriented x3. Pt has been assisted to turn side to side every two hours, and she has been swallowing her medications with apple sauce. Allevyn place for wound treatment and prevention. However, pt has to be constantly under supervision bc she tends to remove the Allevyn and put them in her mouth. Vital signs have been stable except her heart rate (in 110's) which might not be unusual for the pt. IV pulled out her IV but we will contact the MD to see if pt can remain with no IV access for comfort. Will endorse this information to [facility] nurse.
[2018-04-19 08:23] VITALS: BP 125/74; PULSE 114; RESP 17
[2018-04-19] MEDS: ANASTROZOLE 1 MG TAB PO SCH (08:51)
[2018-04-19] MEDS: DOCUSATE SODIUM 100 MG CAP PO SCH ×2 (08:51→20:14)
[2018-04-19] MEDS: QUETIAPINE 25 MG TAB PO SCH ×2 (08:52→20:14)
[2018-04-19] MEDS: PAROXETINE 20 MG TAB PO SCH ×2 (08:52→20:14)
[2018-04-19] MEDS: LISINOPRIL 5 MG TAB PO SCH (08:52)
[2018-04-19] MEDS: MEMANTINE 10 MG TAB PO SCH (08:52)
[2018-04-19] MEDS: FUROSEMIDE 40 MG TAB PO SCH (08:52)
[2018-04-19] MEDS: BALSAM PERU/CASTOR OIL 60 GM TUBE TOP SCH ×2 (08:57→20:14)
[2018-04-19 14:58] VITALS: BP 120/63; PULSE 100; RESP 17
--- NOTE | 2018-04-19 15:21 | NUR ---
[facility] Patient: Joanna Lott : 1930 Age/Sex: 88/F Unit#: [id number] Room/Bed: [facility]/A User: Nina Mcginnis PT Date: 04/19/18 15:13 Type: PT Technical Record Therapy day number 4 Subjective Current complaint of pain Pain Scale FACES Pain Intensity 5 (0-10) Patient Stated Goal for Pain Relief 0 (0-10) Pain Level Comment R thigh when moving Exercise Assessment Label Bilat Lower Extremity Exercise Type Active Assist ROM Additional Exercise Comments heels lides, hip abduction in side lying, LAQ and AP on sitting Exercise Start Time 14:50 Exercise End Time 15:00 Total Exercise Time 10 min (8-127) Transfer Training Start Time 15:00 Supine to Sit Maximum Assist Transfer Sit to Stand Ability Maximum Assist Bed Mobility Sit to Supine Maximum Assist Additional Mobility Comments 2P, stood 2x with focused on straightening knees and improving posture Transfer Training End Time 15:13 Total Transfer Training Time 13 min (8-127) Static Sitting Balance Fair Dynamic Sitting Balance Fair minus Standing Static Balance Poor Dynamic Standing Balance Poor Safety Judgement Poor Activity Tolerance Fair Post Treatment Pain Intensity 5 0-10 Additional Post Treatment Comment pls see note Total Treament Time 23 min (8-127) Total Minutes 23 Total Units 2 PT Technical Record Comment PT note: S: Patient agreeable to do PT, cleared by RN in charge Beltran to proceed. O: HIGH fall risk, contact prec for chemotherapy. Treatment focused on: bed exercises - AAROM heel slides with gentle passive stretching towards end of rang specially RLE, hip abduction on side lying, LAQ on sitting, trunk stabilization. F/U sot/stand using heavy chair as standing frame, pt tolerated 2x standing with focused on improving knee and trunk stabilization, cued on assuming straight knees. Feet and knees block for balance. A: Patient continue to need max assist of 2 person, can beneift from SNF placement for further therapy. P: cont PT and progress as able.
--- NOTE | 2018-04-19 15:26 | NUR ---
DC UPDATE: STILL PENDING MEDICAL APPLICATION, THERESE BLACK STILL WORKING WITH [employer]ILL KIM APPLICATION. Addendum: 04/19/18 at 1528 by KATHE DEL ROSARIO CM Amended: Links added.
--- NOTE | 2018-04-19 15:26 | PN ---
Date/Time of Note Date/Time of Note DATE: 04/19/18 TIME: 15:26 Assessment/Plan VTE Prophylaxis Risk score (from Nsg)>0 risk: 9 SCD applied (from Ns): Yes SCD contraindicated: low risk/ambulating Pharmacological prophylaxis: heparin Lines/Catheters IV Catheter Type (from [facility]): Peripheral IV Urinary Cath still in place: No Assessment/Plan Hospital Course Labs & Vitals per chart ASSESSMENT & PLAN 87-year-old female with comorbidities including dementia, asthma, breast cancer who was at a [facility] and was brought to the emergency room secondary to sepsis with leukocytosis, febrile illness, and tachycardia, secondary to underlying urinary tract infection. Infection now resolved and she is awaiting placement at discharge. UTI: - resolved, dc abx Asthma/COPD; - Brochodilators. Breathing at baseline Breast cancer. -Continue Arimidex. Irregular nodule with spiculated borders within the left upper lobe measuring 2.51.8 cm. -Possible neoplastic disease, provided the patient's underlying history of breast cancer. Cardiomyopathy. -Left ventricular ejection fraction of 30% with severe global left ventricular systolic dysfunction and severe right ventricular hypokinesis. -Cardiology following. -Continue ACEI if BP permits. Pre-diabetes. -Hemoglobin A1C 5.9. -Random blood glucose within normal limits. Normocytic anemia. -Monitor H&H closely. 9. Fluids, electrolytes, and nutrition. -Mechanical soft diet. 10. Moderate protein-calorie malnutrition. -Dietary supplements. 10. DVT prophylaxis. -SQ heparin. 11. Plan. -Continue supplemental oxygen. -Continue inhaled bronchodilators. -Continue antimicrobials as per sensitivities. -The patient is a DNR/DNI Plan to discharge patient to [facility] when accepted Subjective 24 Hr Interval Summary Free Text/Dictation Workign with PT Exam/Review of Systems Exam Vitals Vital Signs Date Temp Pulse Resp B/P (MAP) Pulse Ox O2 O2 Flow FiO2 Time Delivery Rate 04/19/18 98.4 100 17 120/63 94 Room Air 14:58 (82) Intake and Output 04/18/18 04/18/18 04/19/18 1515:00 23:00 07:00 IntakeIntake Total 120 ml 400 ml 120 ml BalanceBalance 120 ml 400 ml 120 ml Medications Medication Current Medications IV Flush (NS 3 ml) 3 ml PER PROTOCOL IV ; Start 04/02/18 at 20:00 Acetaminophen (Tylenol Tab) 650 mg Q6H PRN PO PAIN LEVEL 1-3 OR FEVER Last administered on 04/18/18 08:03; Admin Dose 650 MG; Start 04/02/18 at 20:00 Alprazolam (Xanax) 0.5 mg BID PRN PO ANXIETY Last administered on 04/17/18 08:13; Admin Dose 0.5 MG; Start 04/02/18 at 20:00 Anastrozole (Arimidex) 1 mg DAILY PO Last administered on 04/19/18 08:51; Admin Dose 1 MG; Start 04/03/18 at 09:00 Docusate Sodium (Colace) 100 mg BID PO Last administered on 04/19/18 08:51; Admin Dose 100 MG; Start 04/02/18 at 21:00 Furosemide (Lasix) 40 mg DAILY PO Last administered on 04/19/18 08:52; Admin Dose 40 MG; Start 04/03/18 at 09:00 Memantine (Namenda) 10 mg DAILY PO Last administered on 04/19/18 08:52; Admin Dose 10 MG; Start 04/03/18 at 09:00 Montelukast Sodium (Singulair) 10 mg QHS PO Last administered on 04/18/18 21:59; Admin Dose 10 MG; Start 04/02/18 at 21:00 Nitroglycerin (Nitroglycerin (Sl Tab) 0.4 Mg) 1 tab Q5M PRN SL CHEST PAIN; Start 04/02/18 at 20:00 Pantoprazole (Protonix Tab) 40 mg AC BREAKFAST DINNER PO Last administered on 04/19/18 06:53; Admin Dose 40 MG; Start 04/03/18 at 07:00 Paroxetine HCl (Paxil) 40 mg BID PO Last administered on 04/19/18 08:52; Admin Dose 40 MG; Start 04/02/18 at 21:00 Quetiapine Fumarate (Seroquel) 25 mg BID PO Last administered on 04/19/18 08:52; Admin Dose 25 MG; Start 04/02/18 at 21:00 IV Flush (NS 10 ml) 10 ml PRN PRN IV FLUSH LINE; Start 04/05/18 at 14:00 Heparin Sodium (Porcine) (Heparin (5000 Units/1ml)) 5,000 unit Q8 SC Last administered on 04/19/18at 14:31; Admin Dose 5,000 UNIT; Start 04/05/18 at 22:00 Lisinopril (Zestril) 5 mg DAILY PO Last administered on 04/19/18at 08:52; Admin Dose 5 MG; Start 04/10/18 at 10:00 MER ALSTON MD Apr 19, 2018 15:26
--- NOTE | 2018-04-19 18:14 | NUR ---
rn notes patient is alert and oriented X3, forgetful at times, verbally responsive and able to make needs know. denies pain and discomfort. no s/s of acute distress noted. turned and repositioned as scheduled. dressing changed and kept clean and dry. all due medicine given, all needs met. call light placed within reach and fall precautions observed well. pending placement. will continue to monitor for remaining shift.
[2018-04-19 19:30] VITALS: BP 102/57; PULSE 114; RESP 17
--- NOTE | 2018-04-19 19:32 | NUR ---
rn notes no IV access, Dr. hammond aware
[2018-04-19] MEDS: MONTELUKAST 10 MG TAB PO SCH (20:14)
[2018-04-20] VITALS (7 sets, daily range): BP systolic 101–119; BP diastolic 55–77; PULSE 115–132; RESP 18–20
--- NOTE | 2018-04-20 05:02 | NUR ---
END OF SHIFT NOTE: Patient in room asleep with no signs of distress. Vital signs stable with no signs of pain noted via FACES pain scale. Tachycardia noted throughout shift; MD aware. Patient alert and oriented x2 with frequent episodes of forgetfulness. Wound treatment completed to sacrococcyx per MD order. Dressing clean, dry, and intact at this time. No other changes otherwise noted. All needs met and medications administered per MD order. No IV access at this time; MD aware previous shift. Patient turned every [address] not in place due to patient's confusional state. Patient with Heparin for DVT prophylaxis. Safety precautions and hourly rounding currently in place until change of shift.
[2018-04-20] MEDS: HEPARIN 5,000 UNIT/1 ML VIAL SC SCH ×3 (05:57→22:12)
[2018-04-20] MEDS: QUETIAPINE 25 MG TAB PO SCH ×2 (09:20→20:22)
[2018-04-20] MEDS: MEMANTINE 10 MG TAB PO SCH (09:20)
[2018-04-20] MEDS: LISINOPRIL 5 MG TAB PO SCH (09:20)
[2018-04-20] MEDS: PANTOPRAZOLE (EC) 40 MG TAB PO SCH ×2 (09:20→17:23)
[2018-04-20] MEDS: PAROXETINE 20 MG TAB PO SCH ×2 (09:21→20:22)
[2018-04-20] MEDS: DOCUSATE SODIUM 100 MG CAP PO SCH ×2 (09:21→20:22)
[2018-04-20] MEDS: FUROSEMIDE 40 MG TAB PO SCH (09:21)
[2018-04-20] MEDS: ANASTROZOLE 1 MG TAB PO SCH (09:22)
[2018-04-20] MEDS: BALSAM PERU/CASTOR OIL 60 GM TUBE TOP SCH ×2 (09:23→20:22)
--- NOTE | 2018-04-20 10:00 | NUR ---
Patient's heart rate is high 120's.notified and new orders received for stat ekg.ekg shows sinus tachycardia.same as previous ekg.
--- NOTE | 2018-04-20 14:25 | PN ---
Date/Time of Note Date/Time of Note DATE: 04/20/18 TIME: 14:24 Assessment/Plan VTE Prophylaxis Risk score (from Ns)>0 risk: 3 SCD applied (from Ns): Yes Pharmacological prophylaxis: heparin Lines/Catheters IV Catheter Type (from Nrs): Peripheral IV Urinary Cath still in place: No Assessment/Plan Hospital Course Labs & Vitals per chart ASSESSMENT & PLAN 87-year-old female with comorbidities including dementia, asthma, breast cancer who was at a [facility] facility and was brought to the emergency room secondary to sepsis with leukocytosis, febrile illness, and tachycardia, secondary to underlying urinary tract infection. Infection now resolved and she is awaiting placement at discharge. UTI: - resolved, dc abx Asthma/COPD; - Brochodilators. Breathing at baseline Breast cancer. -Continue Arimidex. Irregular nodule with spiculated borders within the left upper lobe measuring 2.51.8 cm. -Possible neoplastic disease, provided the patient's underlying history of breast cancer. Cardiomyopathy. -Left ventricular ejection fraction of 30% with severe global left ventricular systolic dysfunction and severe right ventricular hypokinesis. -Cardiology following. -Continue ACEI if BP permits. Pre-diabetes. -Hemoglobin A1C 5.9. -Random blood glucose within normal limits. Normocytic anemia. -Monitor H&H closely. 9. Fluids, electrolytes, and nutrition. -Mechanical soft diet. 10. Moderate protein-calorie malnutrition. -Dietary supplements. 10. DVT prophylaxis. -SQ heparin. 11. Plan. -Continue supplemental oxygen. -Continue inhaled bronchodilators. -Continue antimicrobials as per sensitivities. -The patient is a DNR/DNI Plan to discharge patient to [facility] when accepted Subjective 24 Hr Interval Summary Free Text/Dictation Patient resting comfortably She has no complaints Awaiting placement Exam/Review of Systems Exam Vitals Vital Signs Date Temp Pulse Resp B/P (MAP) Pulse Ox O2 O2 Flow FiO2 Time Delivery Rate 04/20/18 98.1 123 20 112/60 96 14:16 (77) 04/19/18 Room Air 14:58 Intake and Output 04/19/18 04/19/18 04/20/18 1515:00 23:00 07:00 IntakeIntake Total 100 ml BalanceBalance 100 ml Constitutional: alert, oriented, well developed Psych: no complaints, nl mood/affect Head: normocephalic, atraumatic Eyes: nl conjunctiva, EOMI, nl lids, nl sclera, PERRL ENMT: nl external ears & nose, nl lips & teeth, nl nasal mucosa & septum Neck: supple, non-tender Respiratory: clear to auscultation, normal air movement Cardiovascular: regular rate and rhythm, nl pulses Gastrointestinal: soft, nl liver, spleen, non-tender Musculoskeletal: nl extremities to inspection, nl gait and stance Extremities: normal pulses Neurological: PRODUCT DEVELOPMENT COORDINATOR II-XII intact, nl mental status, nl speech, nl strength Skin: nl turgor; No rash or lesions Lymph: nl lymph nodes Medications Medication Current Medications IV Flush (NS 3 ml) 3 ml PER PROTOCOL IV ; Start 04/02/18 at 20:00 Acetaminophen (Tylenol Tab) 650 mg Q6H PRN PO PAIN LEVEL 1-3 OR FEVER Last administered on 04/18/18 08:03; Admin Dose 650 MG; Start 04/02/18 at 20:00 Alprazolam (Xanax) 0.5 mg BID PRN PO ANXIETY Last administered on 04/17/18 08:13; Admin Dose 0.5 MG; Start 04/02/18 at 20:00 Anastrozole (Arimidex) 1 mg DAILY PO Last administered on 04/20/18 09:22; Admin Dose 1 MG; Start 04/03/18 at 09:00 Docusate Sodium (Colace) 100 mg BID PO Last administered on 04/20/18 09:21; Admin Dose 100 MG; Start 04/02/18 at 21:00 Furosemide (Lasix) 40 mg DAILY PO Last administered on 04/20/18 09:21; Admin Dose 40 MG; Start 04/03/18 at 09:00 Memantine (Namenda) 10 mg DAILY PO Last administered on 04/20/18 09:20; Admin Dose 10 MG; Start 04/03/18 at 09:00 Montelukast Sodium (Singulair) 10 mg QHS PO Last administered on 04/19/18 20:14; Admin Dose 10 MG; Start 04/02/18 at 21:00 Nitroglycerin (Nitroglycerin (Sl Tab) 0.4 Mg) 1 tab Q5M PRN SL CHEST PAIN; Start 04/02/18 at 20:00 Pantoprazole (Protonix Tab) 40 mg AC BREAKFAST DINNER PO Last administered on 04/20/18 09:20; Admin Dose 40 MG; Start 04/03/18 at 07:00 Paroxetine HCl (Paxil) 40 mg BID PO Last administered on 04/20/18 09:21; Admin Dose 40 MG; Start 04/02/18 at 21:00 Quetiapine Fumarate (Seroquel) 25 mg BID PO Last administered on 04/20/18 09:20; Admin Dose 25 MG; Start 04/02/18 at 21:00 IV Flush (NS 10 ml) 10 ml PRN PRN IV FLUSH LINE; Start 04/05/18 at 14:00 Heparin Sodium (Porcine) (Heparin (5000 Units/1ml)) 5,000 unit Q8 SC Last administered on 04/20/18 14:01; Admin Dose 5,000 UNIT; Start 04/05/18 at 22:00 Lisinopril (Zestril) 5 mg DAILY PO Last administered on 04/20/18 09:20; Admin Dose 5 MG; Start 04/10/18 at 10:00 MER ALSTON MD Apr 20, 2018 14:25
--- NOTE | 2018-04-20 14:45 | NUR ---
regarding the dentures notified charge nurse Lloyd. hospital nursing assistant .sent the Rubia form as ordered.
--- NOTE | 2018-04-20 15:32 | NUR ---
DC UPDATE: REFERRED TO [facility], PATIENT HAS LIMITED MCARE DAYS PENDING MEDICAL APPROVAL. SPOKE TO VIKASH [facility] [phone]; AWAITS ACCEPTANCEFAMILY'S CHOICE ROSLYN TATE WILL REFER WHEN MEDICAL WILL GET APPROVE. Addendum: 04/20/18 at 1539 by KATHE DEL ROSARIO CM Amended: Links added.
--- NOTE | 2018-04-20 16:02 | NUR ---
paged regarding the ekg results and no new orders received.
--- NOTE | 2018-04-20 18:32 | NUR ---
all needs met.no acute events.changed the dressing as ordered.turned the patient q 2 hours.call light within reach.bed alarm on.she is resting comfortably in bed.
[2018-04-20] MEDS: MONTELUKAST 10 MG TAB PO SCH (20:22)
[2018-04-21 02:00] VITALS: BP 107/59; PULSE 118; RESP 18
[2018-04-21] MEDS: HEPARIN 5,000 UNIT/1 ML VIAL SC SCH ×3 (06:17→21:37)
--- NOTE | 2018-04-21 06:50 | NUR ---
Patient in room asleep with no signs of distress. Vital signs stable with no signs of distress. Tachycardia noted this shift; patient asymptomatic. Patient alert and oriented x2 with occasional episodes of forgetfulness. Patient with no pain via FACES pain scale. Wound treatment completed for this shift. Dressing to sacrococcyx clean, dry, and intact. No other changes otherwise noted. All needs met and medications administered per MD order. Patient turned every 2 hours. No SCDs placed at this time due to patient's confusional state. Patient with heparin for DVT prophylaxis. Safety precautions and hourly rounding currently in place until change of shift.
[2018-04-21] MEDS: ANASTROZOLE 1 MG TAB PO SCH (08:06)
[2018-04-21] MEDS: PAROXETINE 20 MG TAB PO SCH ×2 (08:06→20:50)
[2018-04-21] MEDS: MEMANTINE 10 MG TAB PO SCH (08:07)
[2018-04-21] MEDS: QUETIAPINE 25 MG TAB PO SCH ×2 (08:07→20:50)
[2018-04-21] MEDS: DOCUSATE SODIUM 100 MG CAP PO SCH ×2 (08:07→20:50)
[2018-04-21] MEDS: LISINOPRIL 5 MG TAB PO SCH (08:07)
[2018-04-21] MEDS: FUROSEMIDE 40 MG TAB PO SCH (08:07)
[2018-04-21] MEDS: PANTOPRAZOLE (EC) 40 MG TAB PO SCH ×2 (08:07→17:09)
[2018-04-21] MEDS: BALSAM PERU/CASTOR OIL 60 GM TUBE TOP SCH ×2 (08:08→20:51)
[2018-04-21 08:29] VITALS: BP 102/66; PULSE 117; RESP 18
[2018-04-21 14:36] VITALS: BP 102/56; PULSE 122
--- NOTE | 2018-04-21 15:30 | NUR ---
RN Notes: Patient remains verbally responsive with period of forgetful and confusion trying to remove her clothes and blanket, reoriented as needed, safety measures rendered. Breathing even and unlabored, no sob noted, afebrile, noted with sinus tachy Pulse was 122, MARKETING CAMPAIGN ANALYST Matthew made aware said probably due to breathing treatment and said he will reevaluate pt's medication. Incontinence care done, kept clean and dry. Hourly rounding done, call light within reach, bed alarm on. Will continue to monitor until the end of the shift. Addendum: 04/21/18 at 1622 by ANTONI HOLT RN Around 1535 RO Castro aware that pt has no breathing treatment order no further order given regarding pulse of 122. Addendum: 04/21/18 at 1804 by ANTONI HOLT RN No significant changes during this shift. needs attended. Will endorse to next shift for continuity of care.
--- NOTE | 2018-04-21 15:47 | PN ---
Date/Time of Note Date/Time of Note DATE: 04/21/18 TIME: 15:45 Assessment/Plan VTE Prophylaxis Risk score (from Ns)>0 risk: 9 SCD applied (from Ns): Yes Pharmacological prophylaxis: heparin Lines/Catheters IV [facility] (from [facility]): Peripheral IV Urinary Cath still in place: No Assessment/Plan Hospital Course Labs & Vitals per chart ASSESSMENT & PLAN 87-year-old female with comorbidities including dementia, asthma, breast cancer who was at a [facility] facility and was brought to the emergency room secondary to sepsis with leukocytosis, febrile illness, and tachycardia, secondary to underlying urinary tract infection. Infection now resolved and she is awaiting placement at discharge. UTI: - resolved, dc abx Asthma/COPD; - Brochodilators. Breathing at baseline Breast cancer. -Continue Arimidex. Irregular nodule with spiculated borders within the left upper lobe measuring 2.51.8 cm. -Possible neoplastic disease, provided the patient's underlying history of breast cancer. Cardiomyopathy. -Left ventricular ejection fraction of 30% with severe global left ventricular systolic dysfunction and severe right ventricular hypokinesis. -Cardiology following. -Continue ACEI if BP permits. Pre-diabetes. -Hemoglobin A1C 5.9. -Random blood glucose within normal limits. Normocytic anemia. -Monitor H&H closely. 9. Fluids, electrolytes, and nutrition. -Mechanical soft diet. 10. Moderate protein-calorie malnutrition. -Dietary supplements. 10. DVT prophylaxis. -SQ heparin. 11. Plan. -Continue supplemental oxygen. -Continue inhaled bronchodilators. -Continue antimicrobials as per sensitivities. -The patient is a DNR/DNI Plan to discharge patient to [facility] when accepted Subjective 24 Hr Interval Summary Free Text/Dictation No change to clinical status patinet comfortable. awaiting placement Exam/Review of Systems Exam Vitals Vital Signs Date Temp Pulse Resp B/P (MAP) Pulse Ox O2 O2 Flow FiO2 Time Delivery Rate 04/21/18 98.3 122 102/56 97 Room Air 14:36 (71) 04/21/18 18 08:29 Intake and Output 04/20/18 04/20/18 04/21/18 1515:00 23:00 07:00 IntakeIntake Total 360 ml 1000 ml BalanceBalance 360 ml 1000 ml Medications Medication Current Medications IV Flush (NS 3 ml) 3 ml PER PROTOCOL IV ; Start 04/02/18 at 20:00 Acetaminophen (Tylenol Tab) 650 mg Q6H PRN PO PAIN LEVEL 1-3 OR FEVER Last administered on 04/18/18 08:03; Admin Dose 650 MG; Start 04/02/18 at 20:00 Alprazolam (Xanax) 0.5 mg BID PRN PO ANXIETY Last administered on 04/17/18 08:13; Admin Dose 0.5 MG; Start 04/02/18 at 20:00 Anastrozole (Arimidex) 1 mg DAILY PO Last administered on 04/21/18 08:06; Admin Dose 1 MG; Start 04/03/18 at 09:00 Docusate Sodium (Colace) 100 mg BID PO Last administered on 04/21/18 08:07; Admin Dose 100 MG; Start 04/02/18 at 21:00 Furosemide (Lasix) 40 mg DAILY PO Last administered on 04/21/18 08:07; Admin Dose 40 MG; Start 04/03/18 at 09:00 Memantine (Namenda) 10 mg DAILY PO Last administered on 04/21/18 08:07; Admin Dose 10 MG; Start 04/03/18 at 09:00 Montelukast Sodium (Singulair) 10 mg QHS PO Last administered on 04/20/18 20:22; Admin Dose 10 MG; Start 04/02/18 at 21:00 Nitroglycerin (Nitroglycerin (Sl Tab) 0.4 Mg) 1 tab Q5M PRN SL CHEST PAIN; Start 04/02/18 at 20:00 Pantoprazole (Protonix Tab) 40 mg AC BREAKFAST DINNER PO Last administered on 04/21/18 08:07; Admin Dose 40 MG; Start 04/03/18 at 07:00 Paroxetine HCl (Paxil) 40 mg BID PO Last administered on 04/21/18 08:06; Admin Dose 40 MG; Start 04/02/18 at 21:00 Quetiapine Fumarate (Seroquel) 25 mg BID PO Last administered on 04/21/18 08:07; Admin Dose 25 MG; Start 04/02/18 at 21:00 IV Flush (NS 10 ml) 10 ml PRN PRN IV FLUSH LINE; Start 04/05/18 at 14:00 Heparin Sodium (Porcine) (Heparin (5000 Units/1ml)) 5,000 unit Q8 SC Last administered on 04/21/18at 13:38; Admin Dose 5,000 UNIT; Start 04/05/18 at 22:00 Lisinopril (Zestril) 5 mg DAILY PO Last administered on 04/21/18at 08:07; Admin Dose 5 MG; Start 04/10/18 at 10:00 MER ALSTON MD Apr 21, 2018 15:47
--- NOTE | 2018-04-21 20:00 | NUR ---
Spoke to son Marvel Lott regarding patient's current status and discharge planning. Ensured son that all discharge planning will be handled with patient safety and high quality care throughout patient's hospital stay. Marvel verbalized understanding. Received notice to contact Donovan Lott, emergency certified personal finance counselor of the patient, for any new updates regarding patient's status or discharge planning. Donovan Lott's phone number are as follows: [phone]. Will endorse accordingly.
[2018-04-21 20:09] VITALS: BP 107/61; PULSE 126; RESP 18
[2018-04-21] MEDS: MONTELUKAST 10 MG TAB PO SCH (20:50)
[2018-04-22 02:03] VITALS: BP 117/57; PULSE 111; RESP 18
[2018-04-22] MEDS: HEPARIN 5,000 UNIT/1 ML VIAL SC SCH ×3 (05:27→21:46)
--- NOTE | 2018-04-22 05:51 | NUR ---
END OF SHIFT NOTE: Patient in room asleep with no signs of distress. Vital signs stable. Patient with no pain noted via FACES pain scale. Wound treatment completed this shift. No other changes otherwise noted. All needs met and medications administered per MD order. Patient turned every 2 hours. No SCDs applied at this time due to confusional state. Heparin administered for DVT prophylaxis. Safety precautions and hourly rounding currently in place until change of shift.
[2018-04-22 07:15] VITALS: BP 99/54; PULSE 115; RESP 18
[2018-04-22] MEDS: PANTOPRAZOLE (EC) 40 MG TAB PO SCH ×2 (08:03→16:49)
[2018-04-22] MEDS: QUETIAPINE 25 MG TAB PO SCH ×2 (08:03→20:58)
[2018-04-22] MEDS: ANASTROZOLE 1 MG TAB PO SCH (08:03)
[2018-04-22] MEDS: MEMANTINE 10 MG TAB PO SCH (08:03)
[2018-04-22] MEDS: DOCUSATE SODIUM 100 MG CAP PO SCH ×2 (08:03→20:57)
[2018-04-22] MEDS: PAROXETINE 20 MG TAB PO SCH ×2 (08:03→20:58)
[2018-04-22] MEDS: FUROSEMIDE 40 MG TAB PO SCH (08:04)
[2018-04-22] MEDS: LISINOPRIL 5 MG TAB PO SCH (08:04)
[2018-04-22] MEDS: BALSAM PERU/CASTOR OIL 60 GM TUBE TOP SCH ×2 (08:04→20:59)
--- NOTE | 2018-04-22 14:02 | NUR ---
DC PLANS UPDATE: SNFS DENIED PATIENT , LIMITED MEDICARE DAYS WITH NO SECONDARY INSURANCE. FINANCIAL COUNSELLOR PHILL STILL WORKING WITH SON TO APPLY SECONDARY INSURANCE MEDICAL. Addendum: 04/22/18 at 1404 by KATHE DEL ROSARIO CM Amended: Links added. Addendum: 04/22/18 at 1718 by KATHE DEL ROSARIO SPOKE TO THERESE BARDALES FOR FINANCES, WILLING TO PAY ALAS FOR SENIOR CARE CARE TO A SNF ACCEPTING HIS MOTHER. CENTER @ [facility] ADMISSIONS CALLED SON AWAITS CALL BACK FROM KRISTINE KIM DECISION OF SON FOR PATIENT TO [place] AT [facility].
[2018-04-22 14:39] VITALS: BP 99/54; PULSE 115; RESP 18
--- NOTE | 2018-04-22 16:02 | NUR ---
RN Notes: Patient remains verbally responsive with period of forgetful and confusion trying to remove her clothes, blanket and wound dressing reoriented as needed, safety measures rendered. Breathing even and unlabored, no sob noted, afebrile. Incontinence care done, kept clean and dry. business office manager, Marielos aware regarding pt's son concerned about discharge planning and said their coordinating each other. Hourly rounding done, call light within reach, bed alarm on. Will continue to monitor until the end of the shift. Addendum: 04/22/18 at 1833 by ANTONI HOLT RN No significant changed during this shift. Will continue to monitor and will endorse for continuity of care.
--- NOTE | 2018-04-22 16:55 | PN ---
Date/Time of Note Date/Time of Note DATE: 04/22/18 TIME: 16:53 Assessment/Plan VTE Prophylaxis Risk score (from Ns)>0 risk: 9 SCD applied (from Ns): Yes Pharmacological prophylaxis: heparin Lines/Catheters IV Catheter Type (from [facility]): Peripheral IV Urinary Cath still in place: No Assessment/Plan Hospital Course Labs & Vitals per chart ASSESSMENT & PLAN 87-year-old female with comorbidities including dementia, asthma, breast cancer who was at a [facility] facility and was brought to the emergency room secondary to sepsis with leukocytosis, febrile illness, and tachycardia, secondary to underlying urinary tract infection. Infection now resolved and she is awaiting placement at discharge. UTI: - resolved, dc abx Asthma/COPD; - Brochodilators. Breathing at baseline Breast cancer. -Continue Arimidex. Irregular nodule with spiculated borders within the left upper lobe measuring 2.51.8 cm. -Possible neoplastic disease, provided the patient's underlying history of breast cancer. Cardiomyopathy. -Left ventricular ejection fraction of 30% with severe global left ventricular systolic dysfunction and severe right ventricular hypokinesis. -Cardiology following. -Continue ACEI if BP permits. Pre-diabetes. -Hemoglobin A1C 5.9. -Random blood glucose within normal limits. Normocytic anemia. -Monitor H&H closely. 9. Fluids, electrolytes, and nutrition. -Mechanical soft diet. 10. Moderate protein-calorie malnutrition. -Dietary supplements. 10. DVT prophylaxis. -SQ heparin. 11. Plan. -Continue supplemental oxygen. -Continue inhaled bronchodilators. -Continue antimicrobials as per sensitivities. -The patient is a DNR/DNI Plan to discharge patient to [facility] when accepted Subjective 24 Hr Interval Summary Free Text/Dictation No change to clinical status She awaits placement Exam/Review of Systems Exam Vitals Vital Signs Date Temp Pulse Resp B/P (MAP) Pulse Ox O2 O2 Flow FiO2 Time Delivery Rate 04/22/18 97.9 115 18 99/54 (69) 91 Room Air 14:39 Intake and Output 04/21/18 04/21/18 04/22/18 1515:00 23:00 07:00 IntakeIntake Total 760 ml 260 ml 240 ml BalanceBalance 760 ml 260 ml 240 ml Constitutional: alert, oriented, well developed Psych: no complaints, nl mood/affect Head: normocephalic, atraumatic Eyes: nl conjunctiva, EOMI, nl lids, nl sclera, PERRL ENMT: nl external ears & nose, nl lips & teeth, nl nasal mucosa & septum Neck: supple, non-tender Respiratory: clear to auscultation, normal air movement Cardiovascular: regular rate and rhythm, nl pulses Gastrointestinal: soft, nl liver, spleen, non-tender Musculoskeletal: nl extremities to inspection, nl gait and stance Extremities: normal pulses Neurological: DESIGN ENGINEERING MANAGER II-XII intact, nl mental status, nl speech, nl strength Skin: nl turgor; No rash or lesions Lymph: nl lymph nodes Medications Medication Current Medications IV Flush (NS 3 ml) 3 ml PER PROTOCOL IV ; Start 04/02/18 at 20:00 Acetaminophen (Tylenol Tab) 650 mg Q6H PRN PO PAIN LEVEL 1-3 OR FEVER Last administered on 04/18/18 08:03; Admin Dose 650 MG; Start 04/02/18 at 20:00 Alprazolam (Xanax) 0.5 mg BID PRN PO ANXIETY Last administered on 04/17/18 08:13; Admin Dose 0.5 MG; Start 04/02/18 at 20:00 Anastrozole (Arimidex) 1 mg DAILY PO Last administered on 04/22/18 08:03; Admin Dose 1 MG; Start 04/03/18 at 09:00 Docusate Sodium (Colace) 100 mg BID PO Last administered on 04/22/18 08:03; Admin Dose 100 MG; Start 04/02/18 at 21:00 Furosemide (Lasix) 40 mg DAILY PO Last administered on 04/22/18 08:04; Admin Dose 40 MG; Start 04/03/18 at 09:00 Memantine (Namenda) 10 mg DAILY PO Last administered on 04/22/18 08:03; Admin Dose 10 MG; Start 04/03/18 at 09:00 Montelukast Sodium (Singulair) 10 mg QHS PO Last administered on 04/21/18 20:50; Admin Dose 10 MG; Start 04/02/18 at 21:00 Nitroglycerin (Nitroglycerin (Sl Tab) 0.4 Mg) 1 tab Q5M PRN SL CHEST PAIN; Start 04/02/18 at 20:00 Pantoprazole (Protonix Tab) 40 mg AC BREAKFAST DINNER PO Last administered on 04/22/18 16:49; Admin Dose 40 MG; Start 04/03/18 at 07:00 Paroxetine HCl (Paxil) 40 mg BID PO Last administered on 04/22/18 08:03; Admin Dose 40 MG; Start 04/02/18 at 21:00 Quetiapine Fumarate (Seroquel) 25 mg BID PO Last administered on 04/22/18 08:03; Admin Dose 25 MG; Start 04/02/18 at 21:00 IV Flush (NS 10 ml) 10 ml PRN PRN IV FLUSH LINE; Start 04/05/18 at 14:00 Heparin Sodium (Porcine) (Heparin (5000 Units/1ml)) 5,000 unit Q8 SC Last administered on 04/22/18 13:46; Admin Dose 5,000 UNIT; Start 04/05/18 at 22:00 Lisinopril (Zestril) 5 mg DAILY PO Last administered on 04/22/18 08:04; Admin Dose 5 MG; Start 04/10/18 at 10:00 MER ALSTON MD Apr 22, 2018 16:55
[2018-04-22 20:35] VITALS: BP 145/60; PULSE 118; RESP 18
[2018-04-22] MEDS: MONTELUKAST 10 MG TAB PO SCH (20:57)
[2018-04-23 02:00] VITALS: BP 123/60; PULSE 120; RESP 20
[2018-04-23] MEDS: HEPARIN 5,000 UNIT/1 ML VIAL SC SCH ×3 (05:25→22:11)
[2018-04-23 08:32] VITALS: BP 105/59; PULSE 116; RESP 18
[2018-04-23] MEDS: PANTOPRAZOLE (EC) 40 MG TAB PO SCH ×2 (09:25→17:35)
[2018-04-23] MEDS: MEMANTINE 10 MG TAB PO SCH (09:26)
[2018-04-23] MEDS: ANASTROZOLE 1 MG TAB PO SCH (09:26)
[2018-04-23] MEDS: DOCUSATE SODIUM 100 MG CAP PO SCH ×2 (09:26→21:07)
[2018-04-23] MEDS: QUETIAPINE 25 MG TAB PO SCH ×2 (09:26→21:07)
[2018-04-23] MEDS: FUROSEMIDE 40 MG TAB PO SCH (09:27)
[2018-04-23] MEDS: LISINOPRIL 5 MG TAB PO SCH (09:27)
[2018-04-23] MEDS: PAROXETINE 20 MG TAB PO SCH ×2 (09:27→21:07)
[2018-04-23] MEDS: BALSAM PERU/CASTOR OIL 60 GM TUBE TOP SCH ×2 (09:28→21:08)
--- NOTE | 2018-04-23 10:50 | NUR ---
PT note Therapy day number 5 Subjective Current complaint of pain Pain Scale FACES Pain Intensity 6 (0-10) Patient Stated Goal for Pain Relief 0 (0-10) Pain Level Comment R hip Exercise Assessment Label Bilat Lower Extremity Exercise Type Active Assist ROM Additional Exercise Comments heel slides, hip abd, ankle pumps Exercise Start Time 10:50 Exercise End Time 11:05 Total Exercise Time 15 min (8-127) Transfer Training Start Time 11:05 Supine to Sit Maximum Assist Bed Mobility Sit to Supine Maximum Assist Additional Mobility Comments attempted EOB, resisting movement, unable to attain full supine to sit Transfer Training End Time 11:15 Total Transfer Training Time 10 min (8-127) Static Sitting Balance Poor Safety Judgement Poor Activity Tolerance Poor Equipment Present A pump IV pump Post Treatment Pain Intensity 6 0-10 Additional Post Treatment Comment See note Total Treament Time 25 min (8-127) Total Minutes 25 Total Units 2 PT Technical Record Comment S: Patient in bed, RLE in full hip flexion, pt presents with confusion with limited ability to enunciate. Pt cleared for activity per RN O: PT intervention completed, pt returned back to bed following therapy intervention with all needs met and call light within reach and bed alarm activated. Spoke to RN regarding pt response to activity and PT plan of care. Unable to verbalize pain number however per faces significant pain with hip ROM A: Patient presents with substantial muscle guarding throughout resisting movement by PT. Pt appears slightly increased confusion compared to initial evaluation which limits carry over and progression with therapy intervention. Patient demonstrates poor potential for functional improvement and thus not a candidate for skilled inpatient PT at this time. Discussed treatment and PT discharge with RN. P: Discharge physical therapy.
--- NOTE | 2018-04-23 14:16 | PN ---
Date/Time of Note Date/Time of Note DATE: 04/23/18 TIME: 14:15 Assessment/Plan VTE Prophylaxis Risk score (from Ns)>0 risk: 11 SCD applied (from Ns): Yes Pharmacological prophylaxis: heparin Lines/Catheters IV Catheter Type (from Nrs): Peripheral IV Urinary Cath still in place: No Assessment/Plan Hospital Course Labs & Vitals per chart ASSESSMENT & PLAN 87-year-old female with comorbidities including dementia, asthma, breast cancer who was at a [facility] facility and was brought to the emergency room secondary to sepsis with leukocytosis, febrile illness, and tachycardia, secondary to underlying urinary tract infection. Infection now resolved and she is awaiting placement at discharge. UTI: - resolved, dc abx Asthma/COPD; - Brochodilators. Breathing at baseline Breast cancer. -Continue Arimidex. Irregular nodule with spiculated borders within the left upper lobe measuring 2.51.8 cm. -Possible neoplastic disease, provided the patient's underlying history of breast cancer. Cardiomyopathy. -Left ventricular ejection fraction of 30% with severe global left ventricular systolic dysfunction and severe right ventricular hypokinesis. -Cardiology following. -Continue ACEI if BP permits. Pre-diabetes. -Hemoglobin A1C 5.9. -Random blood glucose within normal limits. Normocytic anemia. -Monitor H&H closely. 9. Fluids, electrolytes, and nutrition. -Mechanical soft diet. 10. Moderate protein-calorie malnutrition. -Dietary supplements. 10. DVT prophylaxis. -SQ heparin. 11. Plan. -Continue supplemental oxygen. -Continue inhaled bronchodilators. -Continue antimicrobials as per sensitivities. -The patient is a DNR/DNI Plan to discharge patient to [facility] when accepted Subjective 24 Hr Interval Summary Free Text/Dictation No change to clinical status Awaiting placement PT sessions Exam/Review of Systems Exam Vitals Vital Signs Date Temp Pulse Resp B/P (MAP) Pulse Ox O2 O2 Flow FiO2 Time Delivery Rate 04/23/18 98.1 116 18 105/59 97 Room Air 08:32 (74) Intake and Output 04/22/18 04/22/18 04/23/18 1515:00 23:00 07:00 IntakeIntake Total 770 ml 450 ml 250 ml BalanceBalance 770 ml 450 ml 250 ml Constitutional: alert, oriented, well developed Psych: no complaints, nl mood/affect Head: normocephalic, atraumatic Eyes: nl conjunctiva, EOMI, nl lids, nl sclera, PERRL ENMT: nl external ears & nose, nl lips & teeth, nl nasal mucosa & septum Neck: supple, non-tender Respiratory: clear to auscultation, normal air movement Cardiovascular: regular rate and rhythm, nl pulses Gastrointestinal: soft, nl liver, spleen, non-tender Musculoskeletal: nl extremities to inspection, nl gait and stance Extremities: normal pulses 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, nl mental status, nl speech, nl strength Skin: nl turgor; No rash or lesions Lymph: nl lymph nodes Medications Medication Current Medications IV Flush (NS 3 ml) 3 ml PER PROTOCOL IV ; Start 04/02/18 at 20:00 Acetaminophen (Tylenol Tab) 650 mg Q6H PRN PO PAIN LEVEL 1-3 OR FEVER Last admi nistered on 04/18/18 08:03; Admin Dose 650 MG; Start 04/02/18 at 20:00 Alprazolam (Xanax) 0.5 mg BID PRN PO ANXIETY Last administered on 04/17/18 08:13; Admin Dose 0.5 MG; Start 04/02/18 at 20:00 Anastrozole (Arimidex) 1 mg DAILY PO Last administered on 04/23/18 09:26; Admin Dose 1 MG; Start 04/03/18 at 09:00 Docusate Sodium (Colace) 100 mg BID PO Last administered on 04/23/18 09:26; Admin Dose 100 MG; Start 04/02/18 at 21:00 Furosemide (Lasix) 40 mg DAILY PO Last administered on 04/23/18 09:27; Admin D ose 40 MG; Start 04/03/18 at 09:00 Memantine (Namenda) 10 mg DAILY PO Last administered on 04/23/18 09:26; Admin Dose 10 MG; Start 04/03/18 at 09:00 Montelukast Sodium (Singulair) 10 mg QHS PO Last administered on 04/22/18 20:57; Admin Dose 10 MG; Start 04/02/18 at 21:00 Nitroglycerin (Nitroglycerin (Sl Tab) 0.4 Mg) 1 tab Q5M PRN SL CHEST PAIN; Start 04/02/18 at 20:00 Pantoprazole (Protonix Tab) 40 mg AC BREAKFAST DINNER PO Last administered on 04/23/18 09:25; Admin Dose 40 MG; Start 04/03/18 at 07:00 Paroxetine HCl (Paxil) 40 mg BID PO Last administered on 04/23/18 09:27; Admin Dose 40 MG; Start 04/02/18 at 21:00 Quetiapine Fumarate (Seroquel) 25 mg BID PO Last administered on 04/23/18 09:26; Admin Dose 25 MG; Start 04/02/18 at 21:00 IV Flush (NS 10 ml) 10 ml PRN PRN IV FLUSH LINE; Start 04/05/18 at 14:00 Heparin Sodium (Porcine) (Heparin (5000 Units/1ml)) 5,000 unit Q8 SC Last administered on 04/23/18 13:58; Admin Dose 5,000 UNIT; Start 04/05/18 at 22:00 Lisinopril (Zestril) 5 mg DAILY PO Last administered on 04/23/18 09:27; Admin Dose 5 MG; Start 04/10/18 at 10:00 MER ALSTON MD Apr 23, 2018 14:16
--- NOTE | 2018-04-23 14:52 | NUR ---
PR PLANS UPDATE: SPOKE TO THE SON BILLY STARK, WILL GO SEE [facility]. [facility] ADMISSIONS WILL NOTIFY ME REGARDING FAMILY DECISION TO GO TO [facility] PRIVATE PAY. Addendum: 04/23/18 at 1454 by KATHE DEL ROSARIO CM Amended: Links added. Addendum: 04/23/18 at 1606 by KATHEHEATHER DEL ROSARIO RECEIVED CALL FROM [facility]ERESE [facility]ANTES, WILL DEAL WITH [facility] ADMISSIONS OVER THE WEEKEND. POSSIBLE TRANSFER TO [facility] ON Thursday04/26/18.
[2018-04-23 15:17] VITALS: BP 110/62; PULSE 122; RESP 18
--- NOTE | 2018-04-23 15:34 | NUR ---
RN NOTES Dr Solares was made aware that patient is having tachycardia right now, heart rate of 122, blood pressure otherwise is stable at BP 110/62. Patient is calm at the time being and denies any pain upon assessment. MD order EKG stat.
--- NOTE | 2018-04-23 17:48 | NUR ---
RN NOTES Patient remained stable, still noted with confusion and forgetfulness. Patient denies having any chest pain or pain anywhere else. Dr Solares notified about the result of the EKG, no further order given at this time. Wound care done, reposition every 2 hours and as needed. Kept comfortable and safe. Poor PO intake noted, Md aware. No new skin issues identified. Patient's latest heart rate is 112, blood pressure stable, afebrile. Will endorse to security shift supervisor for continuity of care.
[2018-04-23 20:00] VITALS: BP 93/54; PULSE 124; RESP 18
[2018-04-23] MEDS: MONTELUKAST 10 MG TAB PO SCH (21:07)
[2018-04-24 02:00] VITALS: BP 95/56; PULSE 123; RESP 18
[2018-04-24] MEDS: ACETAMINOPHEN 325 MG TAB PO PRN (04:37)
[2018-04-24 05:21] VITALS: PULSE 112
[2018-04-24] MEDS: HEPARIN 5,000 UNIT/1 ML VIAL SC SCH ×3 (05:24→21:34)
[2018-04-24] MEDS: PANTOPRAZOLE (EC) 40 MG TAB PO SCH ×2 (06:41→17:47)
--- NOTE | 2018-04-24 07:05 | NUR ---
pt alert x1, pleasantly confused, no sob, complained of pain one time during the shift. tylenol given as ordered,effective. Repositioning every 2 hours done, offloading of heels done w/ pillows. Observed aspiration precaution.Re-oriented as needed
[2018-04-24 08:05] VITALS: BP 98/59; PULSE 105; RESP 19
[2018-04-24] MEDS: DOCUSATE SODIUM 100 MG CAP PO SCH ×2 (08:30→21:33)
[2018-04-24] MEDS: MEMANTINE 10 MG TAB PO SCH (08:31)
[2018-04-24] MEDS: QUETIAPINE 25 MG TAB PO SCH ×2 (08:31→21:33)
[2018-04-24] MEDS: PAROXETINE 20 MG TAB PO SCH ×2 (08:31→21:33)
[2018-04-24] MEDS: ANASTROZOLE 1 MG TAB PO SCH (08:31)
[2018-04-24] MEDS: FUROSEMIDE 40 MG TAB PO SCH (08:31)
[2018-04-24] MEDS: LISINOPRIL 5 MG TAB PO SCH (08:32)
[2018-04-24] MEDS: BALSAM PERU/CASTOR OIL 60 GM TUBE TOP SCH ×2 (08:32→21:33)
[2018-04-24] MEDS: METOPROLOL (XL) 50 MG TAB PO SCH (11:09)
--- NOTE | 2018-04-24 11:32 | NUR ---
Case Mngt: Spoke with Vickie/Dory at [facility] ([phone], [phone]) requesting for updated clinical/nurses notes, faxed with confirmation. CM will follow.
--- NOTE | 2018-04-24 14:18 | PN ---
Date/Time of Note Date/Time of Note DATE: 04/24/18 TIME: 14:16 Assessment/Plan VTE Prophylaxis Risk score (from Ns)>0 risk: 9 SCD applied (from Ns): Yes Pharmacological prophylaxis: heparin Lines/Catheters IV Catheter Type (from [facility]): Peripheral IV Urinary Cath still in place: No Assessment/Plan Hospital Course Labs & Vitals per chart ASSESSMENT & PLAN 87-year-old female with comorbidities including dementia, asthma, breast cancer who was at [id number] and was brought to the emergency room secondary to sepsis with leukocytosis, febrile illness, and tachycardia, secondary to underlying urinary tract infection. Infection now resolved and she is awaiting placement at discharge. Sinus tachycardia: - Labs showing mild BENDEICTO and uremia. Will hold lasix and give gentle fluid bolus UTI: - resolved, dc abx Asthma/COPD; - Brochodilators. Breathing at baseline Breast cancer. -Continue Arimidex. Irregular nodule with spiculated borders within the left upper lobe measuring 2.51.8 cm. -Possible neoplastic disease, provided the patient's underlying history of breast cancer. Cardiomyopathy. -Left ventricular ejection fraction of 30% with severe global left ventricular systolic dysfunction and severe right ventricular hypokinesis. -Cardiology following. -Continue ACEI. Beta stephen on board Pre-diabetes. -Hemoglobin A1C 5.9. -Random blood glucose within normal limits. Normocytic anemia. -Monitor H&H closely. 9. Fluids, electrolytes, and nutrition. -Mechanical soft diet. 10. Moderate protein-calorie malnutrition. -Dietary supplements. 10. DVT prophylaxis. -SQ heparin. 11. Plan. -Continue supplemental oxygen. -Continue inhaled bronchodilators. -Continue antimicrobials as per sensitivities. -The patient is a DNR/DNI Plan to discharge patient to [facility] when accepted Result Diagram: 04/24/18 1113 04/24/18 1113 Results 24hrs Laboratory Tests Test 04/24/18 11:13 White Blood Count 7.4 # Red Blood Count 3.79 L Hemoglobin 10.4 L Hematocrit 31.7 L Mean Corpuscular Volume 83.6 Mean Corpuscular Hemoglobin 27.4 L Mean Corpuscular Hemoglobin Concent 32.8 Red Cell Distribution Width 15.1 H Platelet Count 482 H Mean Platelet Volume 9.1 Immature Granulocytes % 0.700 H Neutrophils % 66.3 Lymphocytes % 21.4 Monocytes % 8.6 Eosinophils % 2.3 Basophils % 0.7 Nucleated Red Blood Cells % 0.0 Immature Granulocytes # 0.050 H Neutrophils # 4.9 Lymphocytes # 1.6 Monocytes # 0.6 Eosinophils # 0.2 Basophils # 0.1 Nucleated Red Blood Cells # 0.0 Sodium Level 134 L Potassium Level 4.3 Chloride Level 96 L Carbon Dioxide Level 26 Anion Gap 12 Blood Urea Nitrogen 32 H Creatinine 0.78 Est Glomerular Filtrat Rate mL/min Glucose Level 144 Calcium Level 10.1 Subjective 24 Hr Interval Summary Free Text/Dictation Continues to be tachycardic She has no complaints Labs drawn show mild BENEDICTO/uremia Exam/Review of Systems Exam Vitals Vital Signs Date Temp Pulse Resp B/P (MAP) Pulse Ox O2 O2 Flow FiO2 Time Delivery Rate 04/24/18 98.6 105 19 98/59 (72) 95 Room Air 08:05 Intake and Output 04/23/18 04/23/18 04/24/18 1515:00 23:00 07:00 IntakeIntake Total 640 ml 640 ml 120 ml BalanceBalance 640 ml 640 ml 120 ml Constitutional: alert, oriented, well developed Psych: no complaints, nl mood/affect Head: normocephalic, atraumatic Eyes: nl conjunctiva, EOMI, nl lids, nl sclera, PERRL ENMT: nl external ears & nose, nl lips & teeth, nl nasal mucosa & septum Neck: supple, non-tender Respiratory: clear to auscultation, normal air movement Cardiovascular: regular rate and rhythm, nl pulses Gastrointestinal: soft, nl liver, spleen, non-tender Musculoskeletal: nl extremities to inspection, nl gait and stance Extremities: normal pulses 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, nl mental status, nl speech, nl strength Skin: nl turgor; No rash or lesions Lymph: nl lymph nodes Results Results 24hrs Laboratory Tests Test 04/24/18 11:13 White Blood Count 7.4 # Red Blood Count 3.79 L Hemoglobin 10.4 L Hematocrit 31.7 L Mean Corpuscular Volume 83.6 Mean Corpuscular Hemoglobin 27.4 L Mean Corpuscular Hemoglobin Concent 32.8 Red Cell Distribution Width 15.1 H Platelet Count 482 H Mean Platelet Volume 9.1 Immature Granulocytes % 0.700 H Neutrophils % 66.3 Lymphocytes % 21.4 Monocytes % 8.6 Eosinophils % 2.3 Basophils % 0.7 Nucleated Red Blood Cells % 0.0 Immature Granulocytes # 0.050 H Neutrophils # 4.9 Lymphocytes # 1.6 Monocytes # 0.6 Eosinophils # 0.2 Basophils # 0.1 Nucleated Red Blood Cells # 0.0 Sodium Level 134 L Potassium Level 4.3 Chloride Level 96 L Carbon Dioxide Level 26 Anion Gap 12 Blood Urea Nitrogen 32 H Creatinine 0.78 Est Glomerular Filtrat Rate mL/min Glucose Level 144 Calcium Level 10.1 Medications Medication Current Medications IV Flush (NS 3 ml) 3 ml PER PROTOCOL IV ; Start 04/02/18 at 20:00 Acetaminophen (Tylenol Tab) 650 mg Q6H PRN PO PAIN LEVEL 1-3 OR FEVER Last administered on 04/24/18 04:37; Admin Dose 650 MG; Start 04/02/18 at 20:00 Alprazolam (Xanax) 0.5 mg BID PRN PO ANXIETY Last administered on 04/17/18 08:13; Admin Dose 0.5 MG; Start 04/02/18 at 20:00 Anastrozole (Arimidex) 1 mg DAILY PO Last administered on 04/24/18 08:31; Admin Dose 1 MG; Start 04/03/18 at 09:00 Docusate Sodium (Colace) 100 mg BID PO Last administered on 04/24/18 08:30; Admin Dose 100 MG; Start 04/02/18 at 21:00 Furosemide (Lasix) 40 mg DAILY PO Last administered on 04/24/18 08:31; Admin Dose 40 MG; Start 04/03/18 at 09:00 Memantine (Namenda) 10 mg DAILY PO Last administered on 04/24/18 08:31; Admin Dose 10 MG; Start 04/03/18 at 09:00 Montelukast Sodium (Singulair) 10 mg QHS PO Last administered on 04/23/18 21:07; Admin Dose 10 MG; Start 04/02/18 at 21:00 Nitroglycerin (Nitroglycerin (Sl Tab) 0.4 Mg) 1 tab Q5M PRN SL CHEST PAIN; Start 04/02/18 at 20:00 Pantoprazole (Protonix Tab) 40 mg AC BREAKFAST DINNER PO Last administered on 04/24/18 06:41; Admin Dose 40 MG; Start 04/03/18 at 07:00 Paroxetine HCl (Paxil) 40 mg BID PO Last administered on 04/24/18 08:31; Admin Dose 40 MG; Start 04/02/18 at 21:00 Quetiapine Fumarate (Seroquel) 25 mg BID PO Last administered on 04/24/18 08:31; Admin Dose 25 MG; Start 04/02/18 at 21:00 IV Flush (NS 10 ml) 10 ml PRN PRN IV FLUSH LINE; Start 04/05/18 at 14:00 Heparin Sodium (Porcine) (Heparin (5000 Units/1ml)) 5,000 unit Q8 SC Last administered on 04/24/18 13:17; Admin Dose 5,000 UNIT; Start 04/05/18 at 22:00 Lisinopril (Zestril) 5 mg DAILY PO Last administered on 04/23/18 09:27; Admin Dose 5 MG; Start 04/10/18 at 10:00 Metoprolol Succinate (Toprol Xl) 50 mg DAILY PO Last administered on 04/24/18at 11:09; Admin Dose 50 MG; Start 04/24/18 at 10:30 MER ALSTON MD Apr 24, 2018 14:18
[2018-04-24 14:21] VITALS: BP 119/57; PULSE 102; RESP 18
[2018-04-24] MEDS ORDERED: SOD CHLORIDE 0.9% 250 ML IV ONE (14:30)
--- NOTE | 2018-04-24 18:00 | NUR ---
Awake and alert, calm and cooperative. 500 ml NS given bolus for tachycardia. VSS. No distress noted. Respirations even and non labored. C/O right hip pain during movement. Fall precautions in place at all times, no falls or injuries noted.
[2018-04-24 20:00] VITALS: BP 127/57; PULSE 99; RESP 18
[2018-04-24] MEDS: MONTELUKAST 10 MG TAB PO SCH (21:33)
[2018-04-25 02:00] VITALS: BP 108/53; PULSE 100; RESP 18
[2018-04-25] MEDS: PANTOPRAZOLE (EC) 40 MG TAB PO SCH ×2 (06:01→17:05)
[2018-04-25] MEDS: HEPARIN 5,000 UNIT/1 ML VIAL SC SCH ×3 (06:01→21:38)
--- NOTE | 2018-04-25 06:31 | NUR ---
No acute changes or s/s of respiratory distress during shift. Repositioned pt Q2h. Pt c/o pain but did not want Tylenol. Mepilex re-applied to bilateral heels and sacrum due to pt pulling them off. Fall precautions observed with call light within reach. Hourly rounding done. Pt's son is to sign a POLST form once he visits, will endorse to oncoming nurse.
[2018-04-25 08:00] VITALS: BP 110/72; PULSE 102; RESP 19
[2018-04-25] MEDS: PAROXETINE 20 MG TAB PO SCH ×2 (08:54→21:37)
[2018-04-25] MEDS: QUETIAPINE 25 MG TAB PO SCH ×2 (08:54→21:37)
[2018-04-25] MEDS: DOCUSATE SODIUM 100 MG CAP PO SCH ×2 (08:54→21:38)
[2018-04-25] MEDS: MEMANTINE 10 MG TAB PO SCH (08:54)
[2018-04-25] MEDS: ANASTROZOLE 1 MG TAB PO SCH (08:55)
[2018-04-25] MEDS: METOPROLOL (XL) 50 MG TAB PO SCH (08:55)
[2018-04-25] MEDS: BALSAM PERU/CASTOR OIL 60 GM TUBE TOP SCH ×2 (08:56→21:38)
[2018-04-25] MEDS: LISINOPRIL 5 MG TAB PO SCH (08:56)
[2018-04-25] MEDS ORDERED: SOD CHLORIDE 0.9% 250 ML IV ONE (14:00)
[2018-04-25 14:10] VITALS: BP 82/44; PULSE 94; RESP 19
--- NOTE | 2018-04-25 14:32 | PN ---
Date/Time of Note Date/Time of Note DATE: 04/25/18 TIME: 14:32 Assessment/Plan VTE Prophylaxis Risk score (from Ns)>0 risk: 9 SCD applied (from Ns): Yes Pharmacological prophylaxis: heparin Lines/Catheters IV Catheter Type (from Nrs): Saline Lock Urinary Cath still in place: No Assessment/Plan Hospital Course ASSESSMENT & PLAN 87-year-old female with comorbidities including dementia, asthma, breast cancer who was at a [id number] facility and was brought to the emergency room secondary to sepsis with leukocytosis, febrile illness, and tachycardia, secondary to underlying urinary tract infection. Infection now resolved and she is awaiting placement at discharge. Sinus tachycardia: - Labs showing mild BENEDICTO and uremia. Holding lasix and will give another gentle fluid bolus UTI: - resolved, dc abx Asthma/COPD; - Brochodilators. Breathing at baseline Breast cancer. -Continue Arimidex. Irregular nodule with spiculated borders within the left upper lobe measuring 2 .51.8 cm. -Possible neoplastic disease, provided the patient's underlying history of breast cancer. Cardiomyopathy. -Left ventricular ejection fraction of 30% with severe global left ventricular systolic dysfunction and severe right ventricular hypokinesis. -Cardiology following. -Continue ACEI. Beta stephen on board Pre-diabetes. -Hemoglobin A1C 5.9. -Random blood glucose within normal limits. Normocytic anemia. -Monitor H&H closely. 9. Fluids, electrolytes, and nutrition. -Mechanical soft diet. 10. Moderate protein-calorie malnutrition. -Dietary supplements. 10. DVT prophylaxis. -SQ heparin. 11. Plan. -Continue supplemental oxygen. -Continue inhaled bronchodilators. -Continue antimicrobials as per sensitivities. -The patient is a DNR/DNI Plan to discharge patient to [facility] when accepted Result Diagram: 04/24/18 1113 04/25/18 0524 Results 24hrs Laboratory Tests Test 04/25/18 05:24 Sodium Level 137 Potassium Level 4.6 Chloride Level 98 Carbon Dioxide Level 28 Anion Gap 11 Blood Urea Nitrogen 30 H Creatinine 0.72 Est Glomerular Filtrat Rate mL/min Glucose Level 109 Calcium Level 10.3 H Subjective 24 Hr Interval Summary Free Text/Dictation Alert, no compliants, no distress Still with mild BENEDICTO despite fluids Exam/Review of Systems Exam Vitals Vital Signs Date Temp Pulse Resp B/P (MAP) Pulse Ox O2 O2 Flow FiO2 Time Delivery Rate 04/25/18 98.2 102 19 110/72 95 Room Air 08:00 (85) Intake and Output 04/24/18 04/24/18 04/25/18 1414:59 22:59 06:59 IntakeIntake Total 920 ml 950 ml 350 ml BalanceBalance 920 ml 950 ml 350 ml Constitutional: alert, oriented, well developed Psych: no complaints, nl mood/affect Head: normocephalic, atraumatic Eyes: nl conjunctiva, EOMI, nl lids, nl sclera, PERRL ENMT: nl external ears & nose, nl lips & teeth, nl nasal mucosa & septum Neck: supple, non-tender Respiratory: clear to auscultation, normal air movement Cardiovascular: regular rate and rhythm, nl pulses Gastrointestinal: soft, nl liver, spleen, non-tender Musculoskeletal: nl extremities to inspection, nl gait and stance Extremities: normal pulses Neurological: CLINICAL REHABILITATION LIAISON II-XII intact, nl mental status, nl speech, nl strength Skin: nl turgor; No rash or lesions Lymph: nl lymph nodes Results Results 24hrs Laboratory Tests Test 04/25/18 05:24 Sodium Level 137 Potassium Level 4.6 Chloride Level 98 Carbon Dioxide Level 28 Anion Gap 11 Blood Urea Nitrogen 30 H Creatinine 0.72 Est Glomerular Filtrat Rate mL/min Glucose Level 109 Calcium Level 10.3 H Medications Medication Current Medications IV Flush (NS 3 ml) 3 ml PER PROTOCOL IV ; Start 04/02/18 at 20:00 Acetaminophen (Tylenol Tab) 650 mg Q6H PRN PO PAIN LEVEL 1-3 OR FEVER Last administered on 04/24/18at 04:37; Admin Dose 650 MG; Start 04/02/18 at 20:00 Alprazolam (Xanax) 0.5 mg BID PRN PO ANXIETY Last administered on 04/17/18 08:13; Admin Dose 0.5 MG; Start 04/02/18 at 20:00 Anastrozole (Arimidex) 1 mg DAILY PO Last administered on 04/25/18at 08:55; Admin Dose 1 MG; Start 04/03/18 at 09:00 Docusate Sodium (Colace) 100 mg BID PO Last administered on 04/25/18at 08:54; Admin Dose 100 MG; Start 04/02/18 at 21:00 Furosemide (Lasix) 40 mg DAILY PO Last administered on 04/24/18 08:31; Admin Dose 40 MG; Start 04/03/18 at 09:00; Status Hold Memantine (Namenda) 10 mg DAILY PO Last administered on 04/25/18 08:54; Admin Dose 10 MG; Start 04/03/18 at 09:00 Montelukast Sodium (Singulair) 10 mg QHS PO Last administered on 04/24/18 21:33; Admin Dose 10 MG; Start 04/02/18 at 21:00 Nitroglycerin (Nitroglycerin (Sl Tab) 0.4 Mg) 1 tab Q5M PRN SL CHEST PAIN; Start 04/02/18 at 20:00 Pantoprazole (Protonix Tab) 40 mg AC BREAKFAST DINNER PO Last administered on 04/25/18 06:01; Admin Dose 40 MG; Start 04/03/18 at 07:00 Paroxetine HCl (Paxil) 40 mg BID PO Last administered on 04/25/18 08:54; Admin Dose 40 MG; Start 04/02/18 at 21:00 Quetiapine Fumarate (Seroquel) 25 mg BID PO Last administered on 04/25/18 08:54; Admin Dose 25 MG; Start 04/02/18 at 21:00 IV Flush (NS 10 ml) 10 ml PRN PRN IV FLUSH LINE; Start 04/05/18 at 14:00 Heparin Sodium (Porcine) (Heparin (5000 Units/1ml)) 5,000 unit Q8 SC Last administered on 04/25/18 06:01; Admin Dose 5,000 UNIT; Start 04/05/18 at 22:00 Lisinopril (Zestril) 5 mg DAILY PO Last administered on 04/25/18 08:56; Admin Dose 5 MG; Start 04/10/18 at 10:00 Metoprolol Succinate (Toprol Xl) 50 mg DAILY PO Last administered on 04/25/18 08:55; Admin Dose 50 MG; Start 04/24/18 at 10:30 Sodium Chloride 250 ml @ 250 mls/hr Q1H ONCE IV ; Start 04/25/18 at 14:00; Stop 04/25/18 at 14:59 MER ALSTON MD Apr 25, 2018 14:32
[2018-04-25 20:00] VITALS: BP 88/58; PULSE 88; RESP 18
[2018-04-25] MEDS: MONTELUKAST 10 MG TAB PO SCH (21:38)
[2018-04-26 02:00] VITALS: BP 96/53; PULSE 93; RESP 18
[2018-04-26] MEDS: PANTOPRAZOLE (EC) 40 MG TAB PO SCH ×2 (06:08→18:15)
[2018-04-26] MEDS: HEPARIN 5,000 UNIT/1 ML VIAL SC SCH ×3 (06:08→21:23)
--- NOTE | 2018-04-26 06:14 | NUR ---
No s/s of respiratory distress during shift. Repositioned pt Q2h. Dressing done on sacrum and pictures taken. Fall precautions observed with call light within reach. Hourly rounding done. Pt's son is to sign a POLST form once he visits, will endorse to oncoming nurse.
[2018-04-26 08:08] VITALS: BP 109/60; PULSE 93; RESP 17
[2018-04-26] MEDS: QUETIAPINE 25 MG TAB PO SCH ×2 (08:52→20:46)
[2018-04-26] MEDS: DOCUSATE SODIUM 100 MG CAP PO SCH ×2 (08:52→20:46)
[2018-04-26] MEDS: PAROXETINE 20 MG TAB PO SCH ×2 (08:52→20:47)
[2018-04-26] MEDS: MEMANTINE 10 MG TAB PO SCH (08:52)
[2018-04-26] MEDS: ANASTROZOLE 1 MG TAB PO SCH (08:52)
[2018-04-26] MEDS: METOPROLOL (XL) 50 MG TAB PO SCH (08:53)
[2018-04-26] MEDS: BALSAM PERU/CASTOR OIL 60 GM TUBE TOP SCH ×2 (08:54→20:54)
[2018-04-26] MEDS: LISINOPRIL 5 MG TAB PO SCH (08:54)
--- NOTE | 2018-04-26 11:28 | NUR ---
MEDICARE INSURANCE LIMITED , NO SNF ACCEPTANCE, FF UP DC PLANS WITH SON SOFIA WHO WILL BE PAYING PRIVATE [facility] FOR HER MOTHER HALF-WAY CARE. HE TOLD ME THAT HIS BROTHER IS LOOKING FOR PLACEMENT AND WILL GET BACK TO ME WHEN HE IS READY. Addendum: 04/26/18 at 1131 by KATHE DEL ROSARIO CM Amended: Links added. Addendum: 04/27/18 at 1058 by KATHE DEL ROSARIO CM SPOKE TO BILLY KIM SNF PLACEMENT/PRIVATE [facility] FOR HALF-WAY CARE, [facility]AS HALF-WAY AFTER [facility] DAYS CONSUMED BUT BILLY DID NOT LIKE THE PLACE. [facility], WILL TAKE A LOOK AT THE PLACE AND WILL WORK WITH THEM REGARDING ALAS HALF-WAY . FAXED CLINICAL INFORMATION TO THE 3 ABOVE FACILITIES.
--- NOTE | 2018-04-26 12:01 | PN ---
Date/Time of Note Date/Time of Note DATE: 04/26/18 TIME: 12:00 Assessment/Plan VTE Prophylaxis Risk score (from Nsg)>0 risk: 10 SCD applied (from Nsg): Yes Pharmacological prophylaxis: heparin Lines/Catheters IV Catheter Type (from Nrsg): Saline Lock Urinary Cath still in place: No Assessment/Plan Hospital Course 87-year-old female with comorbidities including dementia, asthma, breast cancer who was at a [id number] facility and was brought to the emergency room secondary to sepsis with leukocytosis, febrile illness, and tachycardia, secondary to underlying urinary tract infection. Infection now resolved and she is awaiting placement at discharge. Sinus tachycardia: - Labs showing mild BENEDICTO and uremia. Holding lasix and will give another gentle fluid bolus UTI: - resolved, dc abx Asthma/COPD; - Brochodilators. Breathing at baseline Breast cancer. -Continue Arimidex. Irregular nodule with spiculated borders within the left upper lobe measuring 2.51.8 cm. -Possible neoplastic disease, provided the patient's underlying history of breast cancer. Cardiomyopathy. -Left ventricular ejection fraction of 30% with severe global left ventricular systolic dysfunction and severe right ventricular hypokinesis. -Cardiology following. -Continue ACEI. Beta stephen on board Pre-diabetes. -Hemoglobin A1C 5.9. -Random blood glucose within normal limits. Normocytic anemia. -Monitor H&H closely. Moderate protein-calorie malnutrition. -Dietary supplements. Prophylaxis: Heparin DC planning: Plan to discharge patient to [facility] when accepted Result Diagram: 04/24/18 1113 04/26/18 0515 Results 24hrs Laboratory Tests Test 04/26/18 05:15 Sodium Level 138 Potassium Level 4.2 Chloride Level 101 Carbon Dioxide Level 29 Anion Gap 8 Blood Urea Nitrogen 33 H Creatinine 0.69 Est Glomerular Filtrat Rate mL/min Glucose Level 104 Calcium Level 10.2 Subjective 24 Hr Interval Summary Constitutional: no complaints Exam/Review of Systems Exam Vitals Vital Signs Date Temp Pulse Resp B/P (MAP) Pulse Ox O2 O2 Flow FiO2 Time Delivery Rate 04/26/18 98.1 93 17 109/60 94 08:08 (76) 04/25/18 Room Air 14:10 Intake and Output 04/25/18 04/25/18 04/26/18 1515:00 23:00 07:00 IntakeIntake Total 480 ml 640 ml BalanceBalance 480 ml 640 ml Constitutional: alert Respiratory: clear to auscultation Cardiovascular: regular rate and rhythm Gastrointestinal: soft; No distended Musculoskeletal: nl extremities to inspection Results Results 24hrs Laboratory Tests Test 04/26/18 05:15 Sodium Level 138 Potassium Level 4.2 Chloride Level 101 Carbon Dioxide Level 29 Anion Gap 8 Blood Urea Nitrogen 33 H Creatinine 0.69 Est Glomerular Filtrat Rate mL/min Glucose Level 104 Calcium Level 10.2 Medications Medication Current Medications IV Flush (NS 3 ml) 3 ml PER PROTOCOL IV ; Start 04/02/18 at 20:00 Acetaminophen (Tylenol Tab) 650 mg Q6H PRN PO PAIN LEVEL 1-3 OR FEVER Last administered on 04/24/18 04:37; Admin Dose 650 MG; Start 04/02/18 at 20:00 Alprazolam (Xanax) 0.5 mg BID PRN PO ANXIETY Last administered on 04/17/18 08:13; Admin Dose 0.5 MG; Start 04/02/18 at 20:00 Anastrozole (Arimidex) 1 mg DAILY PO Last administered on 04/26/18 08:52; Admin Dose 1 MG; Start 04/03/18 at 09:00 Docusate Sodium (Colace) 100 mg BID PO Last administered on 04/26/18 08:52; A dmin Dose 100 MG; Start 04/02/18 at 21:00 Furosemide (Lasix) 40 mg DAILY PO Last administered on 04/24/18 08:31; Admin Dose 40 MG; Start 04/03/18 at 09:00; Status Hold Memantine (Namenda) 10 mg DAILY PO Last administered on 04/26/18 08:52; Admin Dose 10 MG; Start 04/03/18 at 09:00 Montelukast Sodium (Singulair) 10 mg QHS PO Last administered on 04/25/18 21:38; Admin Dose 10 MG; Start 04/02/18 at 21:00 Nitroglycerin (Nitroglycerin (Sl Tab) 0.4 Mg) 1 tab Q5M PRN SL CHEST PAIN; Start 04/02/18 at 20:00 Pantoprazole (Protonix Tab) 40 mg AC BREAKFAST DINNER PO Last administered on 04/26/18 06:08; Admin Dose 40 MG; Start 04/03/18 at 07:00 Paroxetine HCl (Paxil) 40 mg BID PO Last administered on 04/26/18 08:52; Admin Dose 40 MG; Start 04/02/18 at 21:00 Quetiapine Fumarate (Seroquel) 25 mg BID PO Last administered on 04/26/18 08:52; Admin Dose 25 MG; Start 04/02/18 at 21:00 IV Flush (NS 10 ml) 10 ml PRN PRN IV FLUSH LINE; Start 04/05/18 at 14:00 Heparin Sodium (Porcine) (Heparin (5000 Units/1ml)) 5,000 unit Q8 SC Last administered on 04/26/18 06:08; Admin Dose 5,000 UNIT; Start 04/05/18 at 22:00 Lisinopril (Zestril) 5 mg DAILY PO Last administered on 04/25/18 08:56; Admin Dose 5 MG; Start 04/10/18 at 10:00 Metoprolol Succinate (Toprol Xl) 50 mg DAILY PO Last administered on 04/26/18 08:53; Admin Dose 50 MG; Start 04/24/18 at 10:30 ROSALINA CONTRERAS Apr 26, 2018 12:01
[2018-04-26 15:05] VITALS: BP 111/62; PULSE 99; RESP 18
--- NOTE | 2018-04-26 16:11 | NUR ---
DC PLANS UPDATE: FAMILY WILLING TO PAY [facility] FOR HALFWAY CARE . [facility] ; FAMILY DID NOT LIKE PLACE. PROVIDED OTHER [facility]IS[facility]. Addendum: 04/26/18 at 1614 by KATHE DEL ROSARIO CM Amended: Links added. Addendum: 04/27/18 at 1354 by KATHE DEL ROSARIO CM MEDICAL APPLICATION ONGOING WITH [facility] BUT NOT QUALIFIED YET BECAUSE SHE HAS MONEY . Addendum: 04/27/18 at 1355 by KATHE DEL ROSARIO [facility] INSURANCE LIMITED DAYS, FAMILY WANTS JAIL PLACEMENT NEEDS SECONDARY INSURANCE. Addendum: 04/27/18 at 1505 by KATHE DEL ROSARIO RECEIVED CALL FROM [facility]AN[facility] ADMISSIONS ACCEPTING PATIENT , NEED A COPY OF MEDICAL APPLICATION FROM [facility] AND NEEDS TO TALK TO THERESE CERVANTES REGARDING PRIVATE PAY ALAS FOR HALFWAY CARE WHILE WAITING FOR MEDICAL APPROVAL.
--- NOTE | 2018-04-26 18:53 | NUR ---
EOSS: Patient is awake with no signs of distress. Vital signs stable. All needs met and medications administered per order. Patient turned every 2 hours. Safety precautions and hourly rounding currently in place.
[2018-04-26 19:30] VITALS: BP 111/55; PULSE 92; RESP 18
[2018-04-26] MEDS: MONTELUKAST 10 MG TAB PO SCH (20:46)
[2018-04-27 02:32] VITALS: BP 115/58; PULSE 87; RESP 17
[2018-04-27] MEDS: HEPARIN 5,000 UNIT/1 ML VIAL SC SCH ×3 (06:08→21:34)
[2018-04-27] MEDS: PANTOPRAZOLE (EC) 40 MG TAB PO SCH ×2 (06:08→17:29)
--- NOTE | 2018-04-27 06:40 | NUR ---
nurses notes: patient alert and oriented x1.confused.no respiratory distress noted. no signs of pain or discomfort.due meds given.turned q 2 hrs.slept at intervals.vital signs stable.call light within reach instructed to call for assistance.bed alarm on.bed in lowest position.monitored.no acute changes overnight.
[2018-04-27 08:00] VITALS: BP 118/64; PULSE 76; RESP 20
[2018-04-27] MEDS: ANASTROZOLE 1 MG TAB PO SCH (09:34)
[2018-04-27] MEDS: PAROXETINE 20 MG TAB PO SCH ×2 (09:35→21:31)
[2018-04-27] MEDS: DOCUSATE SODIUM 100 MG CAP PO SCH ×2 (09:35→21:31)
[2018-04-27] MEDS: QUETIAPINE 25 MG TAB PO SCH ×2 (09:35→21:31)
[2018-04-27] MEDS: MEMANTINE 10 MG TAB PO SCH (09:37)
[2018-04-27] MEDS: METOPROLOL (XL) 50 MG TAB PO SCH (09:38)
[2018-04-27] MEDS: BALSAM PERU/CASTOR OIL 60 GM TUBE TOP SCH ×2 (09:39→21:32)
[2018-04-27] MEDS: LISINOPRIL 5 MG TAB PO SCH (09:39)
[2018-04-27 14:00] VITALS: BP 120/72; PULSE 84; RESP 20
--- NOTE | 2018-04-27 14:46 | PN ---
Date/Time of Note Date/Time of Note DATE: 04/27/18 TIME: 14:45 Assessment/Plan VTE Prophylaxis Risk score (from Nsg)>0 risk: 10 SCD applied (from Nsg): Yes Pharmacological prophylaxis: heparin Lines/Catheters IV Catheter Type (from Nrsg): Saline Lock Urinary Cath still in place: No Assessment/Plan Hospital Course 87-year-old female with comorbidities including dementia, asthma, breast cancer who was at a [id number] facility and was brought to the emergency room secondary to sepsis with leukocytosis, febrile illness, and tachycardia, secondary to underlying urinary tract infection. Infection now resolved and she is awaiting placement at discharge. Sinus tachycardia: - Labs showing mild BENEDICTO and uremia. Holding lasix and will give another gentle fluid bolus UTI: - resolved, dc abx Asthma/COPD; - Brochodilators. Breathing at baseline Breast cancer. -Continue Arimidex. Irregular nodule with spiculated borders within the left upper lobe measuring 2.51.8 cm. -Possible neoplastic disease, provided the patient's underlying history of breast cancer. Cardiomyopathy. -Left ventricular ejection fraction of 30% with severe global left ventricular systolic dysfunction and severe right ventricular hypokinesis. -Cardiology following. -Continue ACEI. Beta stephen on board Pre-diabetes. -Hemoglobin A1C 5.9. -Random blood glucose within normal limits. Normocytic anemia. -Monitor H&H closely. Moderate protein-calorie malnutrition. -Dietary supplements. Prophylaxis: Heparin DC planning: Plan to discharge patient to [facility] when accepted Result Diagram: 04/24/18 1113 04/26/18 0515 Subjective 24 Hr Interval Summary Constitutional: no complaints Exam/Review of Systems Exam Vitals Vital Signs Date Temp Pulse Resp B/P (MAP) Pulse Ox O2 O2 Flow FiO2 Time Delivery Rate 04/27/18 98.8 76 20 118/64 96 08:00 (82) 04/27/18 Room Air 02:32 Intake and Output 04/26/18 04/26/18 04/27/18 1414:59 22:59 06:59 IntakeIntake Total 480 ml 240 ml BalanceBalance 480 ml 240 ml Constitutional: alert Respiratory: clear to auscultation Cardiovascular: regular rate and rhythm Gastrointestinal: soft; No distended Musculoskeletal: nl extremities to inspection Medications Medication Current Medications IV Flush (NS 3 ml) 3 ml PER PROTOCOL IV ; Start 04/02/18 at 20:00 Acetaminophen (Tylenol Tab) 650 mg Q6H PRN PO PAIN LEVEL 1-3 OR FEVER Last administered on 04/24/18 04:37; Admin Dose 650 MG; Start 04/02/18 at 20:00 Alprazolam (Xanax) 0.5 mg BID PRN PO ANXIETY Last administered on 04/17/18 08:13; Admin Dose 0.5 MG; Start 04/02/18 at 20:00 Anastrozole (Arimidex) 1 mg DAILY PO Last administered on 04/27/18 09:34; Admin Dose 1 MG; Start 04/03/18 at 09:00 Docusate Sodium (Colace) 100 mg BID PO Last administered on 04/27/18 09:35; Admin Dose 100 MG; Start 04/02/18 at 21:00 Furosemide (Lasix) 40 mg DAILY PO Last administered on 04/24/18 08:31; Admin Dose 40 MG; Start 04/03/18 at 09:00; Status Hold Memantine (Namenda) 10 mg DAILY PO Last administered on 04/27/18 09:37; Admin Dose 10 MG; Start 04/03/18 at 09:00 Montelukast Sodium (Singulair) 10 mg QHS PO Last administered on 04/26/18 20:46; Admin Dose 10 MG; Start 04/02/18 at 21:00 Nitroglycerin (Nitroglycerin (Sl Tab) 0.4 Mg) 1 tab Q5M PRN SL CHEST PAIN; Start 04/02/18 at 20:00 Pantoprazole (Protonix Tab) 40 mg AC BREAKFAST DINNER PO Last administered on 04/27/18 06:08; Admin Dose 40 MG; Start 04/03/18 at 07:00 Paroxetine HCl (Paxil) 40 mg BID PO Last administered on 04/27/18 09:35; Admin Dose 40 MG; Start 04/02/18 at 21:00 Quetiapine Fumarate (Seroquel) 25 mg BID PO Last administered on 04/27/18 09:35; Admin Dose 25 MG; Start 04/02/18 at 21:00 IV Flush (NS 10 ml) 10 ml PRN PRN IV FLUSH LINE; Start 04/05/18 at 14:00 Heparin Sodium (Porcine) (Heparin (5000 Units/1ml)) 5,000 unit Q8 SC Last administered on 04/27/18at 14:03; Admin Dose 5,000 UNIT; Start 04/05/18 at 22:00 Lisinopril (Zestril) 5 mg DAILY PO Last administered on 04/27/18at 09:39; Admin Dose 5 MG; Start 04/10/18 at 10:00 Metoprolol Succinate (Toprol Xl) 50 mg DAILY PO Last administered on 04/27/18at 09:38; Admin Dose 50 MG; Start 04/24/18 at 10:30 ROSALINA CONTRERAS Apr 27, 2018 14:46
--- NOTE | 2018-04-27 16:54 | NUR ---
RECEIVED CALL FROM [facility]AN[facility], ACCEPTING PATIENT AND WILL NEED COPY OF MEDICAL APPLICATION WITH [facility], NOTIFIED SON BILLY, TEL# [phone] WILL TAKE A LOOK AT THE PLACE AND WILL TALK TO VICENTE RE PAYING [facility] FOR PENITENTIARY CARE WHILE WAITING FOR MEDICAL INSURANCE. PENDING [facility] . Addendum: 04/27/18 at 1658 by KATHE DEL ROSARIO CM Amended: Links added.
--- NOTE | 2018-04-27 18:53 | NUR ---
RN NOTES Patient remained stable all throughout the shift. Still noted with confusion and forgetfulness. Reposition every 2 hours and as needed. wound care done. No new orders noted. Kept clean , safe and dry. No new skin issues identified. Still noted with poor PO intake at times. Reorient as nedded. Hourly rounding done. Will endorse to warehouse worker 2nd shift for continuity of care.
[2018-04-27 19:28] VITALS: BP 101/65; PULSE 92; RESP 18
[2018-04-27] MEDS: MONTELUKAST 10 MG TAB PO SCH (21:31)
[2018-04-28 01:54] VITALS: BP 109/58; PULSE 86; RESP 18
[2018-04-28] MEDS: HEPARIN 5,000 UNIT/1 ML VIAL SC SCH ×3 (05:26→22:38)
--- NOTE | 2018-04-28 05:40 | NUR ---
pt alertx1, pleasantly confused. pain not noted. wound care done. Repositioning and offloading of heels done w/ pillows. Reoriented as needed. Observed fall precaution
[2018-04-28] MEDS: PANTOPRAZOLE (EC) 40 MG TAB PO SCH ×2 (06:39→17:14)
[2018-04-28 08:08] VITALS: BP 114/63; PULSE 86; RESP 18
[2018-04-28] MEDS: ANASTROZOLE 1 MG TAB PO SCH (09:53)
[2018-04-28] MEDS: DOCUSATE SODIUM 100 MG CAP PO SCH ×2 (09:55→21:22)
[2018-04-28] MEDS: QUETIAPINE 25 MG TAB PO SCH ×2 (09:56→21:22)
[2018-04-28] MEDS: LISINOPRIL 5 MG TAB PO SCH (09:56)
[2018-04-28] MEDS: PAROXETINE 20 MG TAB PO SCH ×2 (09:56→21:22)
[2018-04-28] MEDS: METOPROLOL (XL) 50 MG TAB PO SCH (09:56)
[2018-04-28] MEDS: MEMANTINE 10 MG TAB PO SCH (09:56)
[2018-04-28] MEDS: BALSAM PERU/CASTOR OIL 60 GM TUBE TOP SCH ×2 (09:57→21:26)
--- NOTE | 2018-04-28 10:26 | NUR ---
INGRID NOTES FOLLOW UP WITH PHILL REGARDING MEDICAL APPLICATION, PER PHILL PATIENT THERESE CERVANTES IS NOT COMPLYING WITH THE REQUIREMENTS FOR MEDICAL APPLICATION AND WILL FOLLOW TODAY WITH HIM. RADAMES WILL FOLLOW UP ALSO. VIKASH QUINTERO X [phone] Addendum: 04/28/18 at 1318 by VIKASH ARNOLD CM Referral made to [facility] and [facility] , [facility] # [phone] in admissions accepted patient and will assist in the madical application process . Called patient therese Cervantes that his mom is accepted at [facility] H/R stated he wants to see the place first .Information texted to him . Vikash QUINTERO [phone]
[2018-04-28 14:50] VITALS: BP 112/60; PULSE 80; RESP 18
--- NOTE | 2018-04-28 16:16 | PN ---
Date/Time of Note Date/Time of Note DATE: 04/28/18 TIME: 16:15 Assessment/Plan VTE Prophylaxis Risk score (from Nsg)>0 risk: 10 SCD applied (from Nsg): Yes Pharmacological prophylaxis: heparin Lines/Catheters IV Catheter Type (from Nrsg): Saline Lock Urinary Cath still in place: No Assessment/Plan Hospital Course 87-year-old female with comorbidities including dementia, asthma, breast cancer who was at a [id number] facility and was brought to the emergency room secondary to sepsis with leukocytosis, febrile illness, and tachycardia, secondary to underlying urinary tract infection. Infection now resolved and she is awaiting placement at discharge. Sinus tachycardia: - Labs showing mild BENEDICTO and uremia. Holding lasix and will give another gentle fluid bolus UTI: - resolved, dc abx Asthma/COPD; - Brochodilators. Breathing at baseline Breast cancer. -Continue Arimidex. Irregular nodule with spiculated borders within the left upper lobe measuring 2.51.8 cm. -Possible neoplastic disease, provided the patient's underlying history of breast cancer. Cardiomyopathy. -Left ventricular ejection fraction of 30% with severe global left ventricular systolic dysfunction and severe right ventricular hypokinesis. -Cardiology following. -Continue ACEI. Beta stephen on board Pre-diabetes. -Hemoglobin A1C 5.9. -Random blood glucose within normal limits. Normocytic anemia. -Monitor H&H closely. Moderate protein-calorie malnutrition. -Dietary supplements. Prophylaxis: Heparin DC planning: Plan to discharge patient to [facility] when accepted Result Diagram: 04/24/18 1113 04/26/18 0515 Results 24hrs Laboratory Tests Test 04/27/18 21:28 Bedside Glucose 163 Subjective 24 Hr Interval Summary Constitutional: no complaints Exam/Review of Systems Exam Vitals Vital Signs Date Temp Pulse Resp B/P (MAP) Pulse Ox O2 O2 Flow FiO2 Time Delivery Rate 04/28/18 98.1 80 18 112/60 96 Room Air 14:50 (77) Intake and Output 04/27/18 04/27/18 04/28/18 1515:00 23:00 07:00 IntakeIntake Total 590 ml 28 ml BalanceBalance 590 ml 28 ml Constitutional: alert Respiratory: clear to auscultation Cardiovascular: regular rate and rhythm Gastrointestinal: soft; No distended Musculoskeletal: nl extremities to inspection Results Results 24hrs Laboratory Tests Test 04/27/18 21:28 Bedside Glucose 163 Medications Medication Current Medications IV Flush (NS 3 ml) 3 ml PER PROTOCOL IV ; Start 04/02/18 at 20:00 Acetaminophen (Tylenol Tab) 650 mg Q6H PRN PO PAIN LEVEL 1-3 OR FEVER Last administered on 04/24/18 04:37; Admin Dose 650 MG; Start 04/02/18 at 20:00 Alprazolam (Xanax) 0.5 mg BID PRN PO ANXIETY Last administered on 04/17/18 08:13; Admin Dose 0.5 MG; Start 04/02/18 at 20:00 Anastrozole (Arimidex) 1 mg DAILY PO Last administered on 04/28/18 09:53; Admin Dose 1 MG; Start 04/03/18 at 09:00 Docusate Sodium (Colace) 100 mg BID PO Last administered on 04/28/18 09:55; Admin Dose 100 MG; Start 04/02/18 at 21:00 Furosemide (Lasix) 40 mg DAILY PO Last administered on 04/24/18 08:31; Admin Dose 40 MG; Start 04/03/18 at 09:00; Status Hold Memantine (Namenda) 10 mg DAILY PO Last administered on 04/28/18 09:56; Admin Dose 10 MG; Start 04/03/18 at 09:00 Montelukast Sodium (Singulair) 10 mg QHS PO Last administered on 04/27/18 21:31; Admin Dose 10 MG; Start 04/02/18 at 21:00 Nitroglycerin (Nitroglycerin (Sl Tab) 0.4 Mg) 1 tab Q5M PRN SL CHEST PAIN; Start 04/02/18 at 20:00 Pantoprazole (Protonix Tab) 40 mg AC BREAKFAST DINNER PO Last administered on 04/28/18 06:39; Admin Dose 40 MG; Start 04/03/18 at 07:00 Paroxetine HCl (Paxil) 40 mg BID PO Last administered on 04/28/18 09:56; Admin Dose 40 MG; Start 04/02/18 at 21:00 Quetiapine Fumarate (Seroquel) 25 mg BID PO Last administered on 04/28/18 09:56; Admin Dose 25 MG; Start 04/02/18 at 21:00 IV Flush (NS 10 ml) 10 ml PRN PRN IV FLUSH LINE; Start 04/05/18 at 14:00 Heparin Sodium (Porcine) (Heparin (5000 Units/1ml)) 5,000 unit Q8 SC Last administered on 04/28/18at 14:21; Admin Dose 5,000 UNIT; Start 04/05/18 at 22:00 Lisinopril (Zestril) 5 mg DAILY PO Last administered on 04/28/18 09:56; Admin Dose 5 MG; Start 04/10/18 at 10:00 Metoprolol Succinate (Toprol Xl) 50 mg DAILY PO Last administered on 04/28/18 09:56; Admin Dose 50 MG; Start 04/24/18 at 10:30 ROSALINA CONTRERAS Apr 28, 2018 16:16
--- NOTE | 2018-04-28 18:15 | NUR ---
RN NOTES No significant event noted, patient denies any pain upon assessment. Still noted with confusion at times. Wound care done as ordered. Reposition every 2 hours and as needed. Kept safe, clean and dry at all times. wound care done as ordered. No new skin issues identified. Hourly rounding done. Will continue to monitor.
[2018-04-28 20:00] VITALS: BP 113/67; PULSE 90; RESP 20
[2018-04-28] MEDS: MONTELUKAST 10 MG TAB PO SCH (21:22)
[2018-04-29 02:00] VITALS: BP 116/66; PULSE 87; RESP 18
[2018-04-29] MEDS: ACETAMINOPHEN 325 MG TAB PO PRN (05:33)
[2018-04-29] MEDS: HEPARIN 5,000 UNIT/1 ML VIAL SC SCH ×3 (05:39→22:01)
[2018-04-29 07:59] VITALS: BP 124/68; PULSE 84; RESP 17
[2018-04-29] MEDS: MEMANTINE 10 MG TAB PO SCH (09:07)
[2018-04-29] MEDS: METOPROLOL (XL) 50 MG TAB PO SCH (09:08)
[2018-04-29] MEDS: PANTOPRAZOLE (EC) 40 MG TAB PO SCH ×2 (09:08→16:54)
[2018-04-29] MEDS: DOCUSATE SODIUM 100 MG CAP PO SCH ×2 (09:08→21:28)
[2018-04-29] MEDS: LISINOPRIL 5 MG TAB PO SCH (09:08)
[2018-04-29] MEDS: QUETIAPINE 25 MG TAB PO SCH ×2 (09:09→21:29)
[2018-04-29] MEDS: PAROXETINE 20 MG TAB PO SCH ×2 (09:09→21:29)
[2018-04-29] MEDS: ANASTROZOLE 1 MG TAB PO SCH (09:10)
[2018-04-29] MEDS: BALSAM PERU/CASTOR OIL 60 GM TUBE TOP SCH ×2 (09:10→21:30)
--- NOTE | 2018-04-29 12:43 | NUR ---
DC PLANS: [facility]; AND [facility]; SONS OF PATIENT DISAGREED . PROVIDED [facility]: [facility]. FAXED CLINICALS AND FF UP, Addendum: 04/29/18 at 1344 by KATHE DEL ROSARIO Amended: Links added.
[2018-04-29 14:34] VITALS: BP 98/59; PULSE 89; RESP 18
--- NOTE | 2018-04-29 15:27 | PN ---
Date/Time of Note Date/Time of Note DATE: 04/29/18 TIME: 15:24 Assessment/Plan VTE Prophylaxis Risk score (from Ns)>0 risk: 9 SCD applied (from Ns): Yes Pharmacological prophylaxis: heparin Lines/Catheters IV Catheter Type (from Nrs): Saline Lock Urinary Cath still in place: No Assessment/Plan Hospital Course 87-year-old female with comorbidities including dementia, asthma, breast cancer who was at a [id number] facility and was brought to the emergency room secondary to sepsis with leukocytosis, febrile illness, and tachycardia, secondary to underlying urinary tract infection. Infection now resolved and she is awaiting placement at discharge. Sinus tachycardia: - Labs showing mild BENEDICTO and uremia. Holding lasix and will give another gentle fluid bolus UTI: - resolved, dc abx Asthma/COPD; - Brochodilators. Breathing at baseline Breast cancer. -Continue Arimidex. Irregular nodule with spiculated borders within the left upper lobe measuring 2.51.8 cm. -Possible neoplastic disease, provided the patient's underlying history of breast cancer. Cardiomyopathy. -Left ventricular ejection fraction of 30% with severe global left ventricular systolic dysfunction and severe right ventricular hypokinesis. -Cardiology following. -Continue ACEI. Beta stephen on board Pre-diabetes. -Hemoglobin A1C 5.9. -Random blood glucose within normal limits. Normocytic anemia. -Monitor H&H closely. Moderate protein-calorie malnutrition. -Dietary supplements. Prophylaxis: Heparin DC planning: Plan to discharge patient to [facility] when accepted Result Diagram: 04/26/18 0515 Subjective 24 Hr Interval Summary Constitutional: disoriented Exam/Review of Systems Exam Vitals Vital Signs Date Temp Pulse Resp B/P (MAP) Pulse Ox O2 O2 Flow FiO2 Time Delivery Rate 04/29/18 98.0 89 18 98/59 (72) 96 Room Air 14:34 Intake and Output 04/28/18 04/28/18 04/29/18 1515:00 23:00 07:00 IntakeIntake Total 760 ml 520 ml 390 ml BalanceBalance 760 ml 520 ml 390 ml Constitutional: alert Respiratory: clear to auscultation Cardiovascular: regular rate and rhythm Gastrointestinal: soft; No distended Musculoskeletal: nl extremities to inspection Medications Medication Current Medications IV Flush (NS 3 ml) 3 ml PER PROTOCOL IV ; Start 04/02/18 at 20:00 Acetaminophen (Tylenol Tab) 650 mg Q6H PRN PO PAIN LEVEL 1-3 OR FEVER Last administered on 04/29/18 05:33; Admin Dose 650 MG; Start 04/02/18 at 20:00 Alprazolam (Xanax) 0.5 mg BID PRN PO ANXIETY Last administered on 04/17/18 08:13; Admin Dose 0.5 MG; Start 04/02/18 at 20:00 Anastrozole (Arimidex) 1 mg DAILY PO Last administered on 04/29/18 09:10; Admin Dose 1 MG; Start 04/03/18 at 09:00 Docusate Sodium (Colace) 100 mg BID PO Last administered on 04/29/18 09:08; Admin Dose 100 MG; Start 04/02/18 at 21:00 Furosemide (Lasix) 40 mg DAILY PO Last administered on 04/24/18 08:31; Admin Dose 40 MG; Start 04/03/18 at 09:00; Status Hold Memantine (Namenda) 10 mg DAILY PO Last administered on 04/29/18 09:07; Admin Dose 10 MG; Start 04/03/18 at 09:00 Montelukast Sodium (Singulair) 10 mg QHS PO Last administered on 04/28/18 21:22; Admin Dose 10 MG; Start 04/02/18 at 21:00 Nitroglycerin (Nitroglycerin (Sl Tab) 0.4 Mg) 1 tab Q5M PRN SL CHEST PAIN; Start 04/02/18 at 20:00 Pantoprazole (Protonix Tab) 40 mg AC BREAKFAST DINNER PO Last administered on 04/29/18 09:08; Admin Dose 40 MG; Start 04/03/18 at 07:00 Paroxetine HCl (Paxil) 40 mg BID PO Last administered on 04/29/18 09:09; Admin Dose 40 MG; Start 04/02/18 at 21:00 Quetiapine Fumarate (Seroquel) 25 mg BID PO Last administered on 04/29/18 09:09; Admin Dose 25 MG; Start 04/02/18 at 21:00 IV Flush (NS 10 ml) 10 ml PRN PRN IV FLUSH LINE; Start 04/05/18 at 14:00 Heparin Sodium (Porcine) (Heparin (5000 Units/1ml)) 5,000 unit Q8 SC Last administered on 04/29/18at 14:15; Admin Dose 5,000 UNIT; Start 04/05/18 at 22:00 Lisinopril (Zestril) 5 mg DAILY PO Last administered on 04/29/18at 09:08; Admin Dose 5 MG; Start 04/10/18 at 10:00 Metoprolol Succinate (Toprol Xl) 50 mg DAILY PO Last administered on 04/29/18at 09:08; Admin Dose 50 MG; Start 04/24/18 at 10:30 ROSALINA CONTRERAS Apr 29, 2018 15:27
--- NOTE | 2018-04-29 18:31 | NUR ---
No acute changes during shift. Pt safe and free from injury. Pt checked for incontinence and repositioned Q2H. Pt denies pain. No signs of discomfort or distress. No SOB. Pt currently sleeping comfortably in bed. Bed alarm on, call light within reach. Will continue to monitor.
[2018-04-29 20:00] VITALS: BP 113/62; PULSE 93; RESP 18
[2018-04-29] MEDS: MONTELUKAST 10 MG TAB PO SCH (21:29)
[2018-04-30 02:00] VITALS: BP 103/62; PULSE 85; RESP 19
[2018-04-30] MEDS: HEPARIN 5,000 UNIT/1 ML VIAL SC SCH ×3 (05:35→21:04)
[2018-04-30] MEDS: PANTOPRAZOLE (EC) 40 MG TAB PO SCH ×2 (08:22→18:34)
[2018-04-30] MEDS: DOCUSATE SODIUM 100 MG CAP PO SCH ×2 (08:22→20:53)
[2018-04-30] MEDS: QUETIAPINE 25 MG TAB PO SCH ×2 (08:24→20:53)
[2018-04-30] MEDS: MEMANTINE 10 MG TAB PO SCH (08:24)
[2018-04-30] MEDS: ANASTROZOLE 1 MG TAB PO SCH (08:25)
[2018-04-30] MEDS: PAROXETINE 20 MG TAB PO SCH ×2 (08:26→20:53)
[2018-04-30] MEDS: METOPROLOL (XL) 50 MG TAB PO SCH (08:27)
[2018-04-30] MEDS: LISINOPRIL 5 MG TAB PO SCH (08:28)
[2018-04-30 08:29] VITALS: BP 117/58; PULSE 88; RESP 18
[2018-04-30] MEDS: BALSAM PERU/CASTOR OIL 60 GM TUBE TOP SCH ×2 (08:29→20:52)
--- NOTE | 2018-04-30 11:42 | PN ---
Date/Time of Note Date/Time of Note DATE: 04/30/18 TIME: 11:42 Assessment/Plan VTE Prophylaxis Risk score (from Nsg)>0 risk: 9 SCD applied (from Nsg): Yes Pharmacological prophylaxis: heparin Lines/Catheters IV Catheter Type (from Nrsg): Saline Lock Urinary Cath still in place: No Assessment/Plan Hospital Course 87-year-old female with comorbidities including dementia, asthma, breast cancer who was at a [id number] facility and was brought to the emergency room secondary to sepsis with leukocytosis, febrile illness, and tachycardia, secondary to underlying urinary tract infection. Infection now resolved and she is awaiting placement at discharge. Sinus tachycardia: - Labs showing mild BENEDICTO and uremia. Holding lasix and will give another gentle fluid bolus UTI: - resolved, dc abx Asthma/COPD; - Brochodilators. Breathing at baseline Breast cancer. -Continue Arimidex. Irregular nodule with spiculated borders within the left upper lobe measuring 2.51.8 cm. -Possible neoplastic disease, provided the patient's underlying history of breast cancer. Cardiomyopathy. -Left ventricular ejection fraction of 30% with severe global left ventricular systolic dysfunction and severe right ventricular hypokinesis. -Cardiology following. -Continue ACEI. Beta stephen on board Pre-diabetes. -Hemoglobin A1C 5.9. -Random blood glucose within normal limits. Normocytic anemia. -Monitor H&H closely. Moderate protein-calorie malnutrition. -Dietary supplements. Prophylaxis: Heparin DC planning: Plan to discharge patient to [facility] when accepted Result Diagram: 04/26/18 0515 Subjective 24 Hr Interval Summary Constitutional: no complaints Exam/Review of Systems Exam Vitals Vital Signs Date Temp Pulse Resp B/P (MAP) Pulse Ox O2 O2 Flow FiO2 Time Delivery Rate 04/30/18 97.9 88 18 117/58 95 Room Air 08:29 (77) Intake and Output 04/29/18 04/29/18 04/30/18 1515:00 23:00 07:00 IntakeIntake Total 1000 ml BalanceBalance 1000 ml Constitutional: alert Respiratory: clear to auscultation Cardiovascular: regular rate and rhythm Gastrointestinal: soft; No distended Musculoskeletal: nl extremities to inspection Medications Medication Current Medications IV Flush (NS 3 ml) 3 ml PER PROTOCOL IV ; Start 04/02/18 at 20:00 Acetaminophen (Tylenol Tab) 650 mg Q6H PRN PO PAIN LEVEL 1-3 OR FEVER Last administered on 04/29/18 05:33; Admin Dose 650 MG; Start 04/02/18 at 20:00 Alprazolam (Xanax) 0.5 mg BID PRN PO ANXIETY Last administered on 04/17/18 08:13; Admin Dose 0.5 MG; Start 04/02/18 at 20:00 Anastrozole (Arimidex) 1 mg DAILY PO Last administered on 04/30/18 08:25; Admin Dose 1 MG; Start 04/03/18 at 09:00 Docusate Sodium (Colace) 100 mg BID PO Last administered on 04/30/18 08:22; Admin Dose 100 MG; Start 04/02/18 at 21:00 Furosemide (Lasix) 40 mg DAILY PO Last administered on 04/24/18 08:31; Admin Dose 40 MG; Start 04/03/18 at 09:00; Status Hold Memantine (Namenda) 10 mg DAILY PO Last administered on 04/30/18 08:24; Admin Dose 10 MG; Start 04/03/18 at 09:00 Montelukast Sodium (Singulair) 10 mg QHS PO Last administered on 04/29/18 21:29; Admin Dose 10 MG; Start 04/02/18 at 21:00 Nitroglycerin (Nitroglycerin (Sl Tab) 0.4 Mg) 1 tab Q5M PRN SL CHEST PAIN; Start 04/02/18 at 20:00 Pantoprazole (Protonix Tab) 40 mg AC BREAKFAST DINNER PO Last administered on 04/30/18 08:22; Admin Dose 40 MG; Start 04/03/18 at 07:00 Paroxetine HCl (Paxil) 40 mg BID PO Last administered on 04/30/18 08:26; Admin Dose 40 MG; Start 04/02/18 at 21:00 Quetiapine Fumarate (Seroquel) 25 mg BID PO Last administered on 04/30/18 08:24; Admin Dose 25 MG; Start 04/02/18 at 21:00 IV Flush (NS 10 ml) 10 ml PRN PRN IV FLUSH LINE; Start 04/05/18 at 14:00 Heparin Sodium (Porcine) (Heparin (5000 Units/1ml)) 5,000 unit Q8 SC Last administered on 04/30/18at 05:35; Admin Dose 5,000 UNIT; Start 04/05/18 at 22:00 Lisinopril (Zestril) 5 mg DAILY PO Last administered on 04/30/18at 08:28; Admin Dose 5 MG; Start 04/10/18 at 10:00 Metoprolol Succinate (Toprol Xl) 50 mg DAILY PO Last administered on 04/30/18at 08:27; Admin Dose 50 MG; Start 04/24/18 at 10:30 ROSALINA CONTRERAS Apr 30, 2018 11:42
--- NOTE | 2018-04-30 14:37 | NUR ---
DC PLANS UPDATE: ACCEPTED BY [facility]; BETHANY CERVANTES AND SOFIA LINCOLN,REFUSED PATIENT TO BE DSICAHRGED TO [facility]. CONTACT # SOFIA STARK [phone] BILLY [phone] REFERRED TO SHRUTHISTAS DYELindsay - NO [facility] AVAILABLE AND ANDRES MENDOZA THEIR CHOICE, AWAITS ACCEPTANCE Addendum: 04/30/18 at 1440 by KATHE DEL ROSARIO CM Amended: Links added.
[2018-04-30 20:16] VITALS: BP 102/57; PULSE 89; RESP 18
[2018-04-30] MEDS: MONTELUKAST 10 MG TAB PO SCH (20:53)
[2018-04-30] MEDS: ACETAMINOPHEN 325 MG TAB PO PRN (21:11)
[2018-05-01 02:00] VITALS: BP 100/56; PULSE 89; RESP 18
[2018-05-01] MEDS: PANTOPRAZOLE (EC) 40 MG TAB PO SCH ×2 (06:07→16:46)
[2018-05-01] MEDS: HEPARIN 5,000 UNIT/1 ML VIAL SC SCH ×3 (06:07→21:36)
--- NOTE | 2018-05-01 06:23 | NUR ---
RN Notes Patient had no changes in condition overnight. Administered Tylenol 650mg x 1 for complaint of generalized pain. Medication was effective. Patient received all due medications with no adverse effects/reactions. Incontinent care provided as needed; patient kept clean, dry and comfortable. Patient repositioned every two hours. Bed at lowest position and calls light button within reach. Will continue to monitor and endorse accordingly.
[2018-05-01 08:19] VITALS: BP 104/60; PULSE 82; RESP 18
[2018-05-01] MEDS: LISINOPRIL 5 MG TAB PO SCH (08:22)
[2018-05-01] MEDS: QUETIAPINE 25 MG TAB PO SCH ×2 (08:22→21:33)
[2018-05-01] MEDS: ANASTROZOLE 1 MG TAB PO SCH (08:23)
[2018-05-01] MEDS: MEMANTINE 10 MG TAB PO SCH (08:23)
[2018-05-01] MEDS: PAROXETINE 20 MG TAB PO SCH ×2 (08:23→21:33)
[2018-05-01] MEDS: DOCUSATE SODIUM 100 MG CAP PO SCH ×2 (08:24→21:33)
[2018-05-01] MEDS: BALSAM PERU/CASTOR OIL 60 GM TUBE TOP SCH ×2 (08:24→21:34)
[2018-05-01] MEDS: METOPROLOL (XL) 50 MG TAB PO SCH (08:24)
--- NOTE | 2018-05-01 10:47 | PN ---
Date/Time of Note Date/Time of Note DATE: 05/01/18 TIME: 10:47 Assessment/Plan VTE Prophylaxis Risk score (from Ns)>0 risk: 9 SCD applied (from Ns): Yes Pharmacological prophylaxis: heparin Lines/Catheters IV Catheter Type (from Nrsg): Saline Lock Urinary Cath still in place: No Assessment/Plan Hospital Course 87-year-old female with comorbidities including dementia, asthma, breast cancer who was at a [id number] facility and was brought to the emergency room secondary to sepsis with leukocytosis, febrile illness, and tachycardia, secondary to underlying urinary tract infection. Infection now resolved and she is awaiting placement at discharge. Sinus tachycardia: - Labs showing mild BENEDICTO and uremia. Holding lasix and will give another gentle fluid bolus UTI: - resolved, dc abx Asthma/COPD; - Brochodilators. Breathing at baseline Breast cancer. -Continue Arimidex. Irregular nodule with spiculated borders within the left upper lobe measuring 2.51.8 cm. -Possible neoplastic disease, provided the patient's underlying history of breast cancer. Cardiomyopathy. -Left ventricular ejection fraction of 30% with severe global left ventricular systolic dysfunction and severe right ventricular hypokinesis. -Cardiology following. -Continue ACEI. Beta stephen on board Pre-diabetes. -Hemoglobin A1C 5.9. -Random blood glucose within normal limits. Normocytic anemia. -Monitor H&H closely. Moderate protein-calorie malnutrition. -Dietary supplements. Prophylaxis: Heparin DC planning: Plan to discharge patient to [facility] when accepted Subjective 24 Hr Interval Summary Constitutional: no complaints Exam/Review of Systems Exam Vitals Vital Signs Date Temp Pulse Resp B/P (MAP) Pulse Ox O2 O2 Flow FiO2 Time Delivery Rate 05/01/18 97.4 82 18 104/60 94 Room Air 08:19 (75) Intake and Output 04/30/18 04/30/18 05/01/18 1515:00 23:00 07:00 IntakeIntake Total 720 ml 360 ml BalanceBalance 720 ml 360 ml Constitutional: alert Respiratory: clear to auscultation Cardiovascular: regular rate and rhythm Gastrointestinal: soft; No distended Musculoskeletal: nl extremities to inspection Medications Medication Current Medications IV Flush (NS 3 ml) 3 ml PER PROTOCOL IV ; Start 04/02/18 at 20:00 Acetaminophen (Tylenol Tab) 650 mg Q6H PRN PO PAIN LEVEL 1-3 OR FEVER Last administered on 04/30/18 21:11; Admin Dose 650 MG; Start 04/02/18 at 20:00 Alprazolam (Xanax) 0.5 mg BID PRN PO ANXIETY Last administered on 04/17/18 08:13; Admin Dose 0.5 MG; Start 04/02/18 at 20:00 Anastrozole (Arimidex) 1 mg DAILY PO Last administered on 05/01/18 08:23; Admin Dose 1 MG; Start 04/03/18 at 09:00 Docusate Sodium (Colace) 100 mg BID PO Last administered on 05/01/18 08:24; Admin Dose 100 MG; Start 04/02/18 at 21:00 Furosemide (Lasix) 40 mg DAILY PO Last administered on 04/24/18 08:31; Admin Dose 40 MG; Start 04/03/18 at 09:00; Status Hold Memantine (Namenda) 10 mg DAILY PO Last administered on 05/01/18 08:23; Admin Dose 10 MG; Start 04/03/18 at 09:00 Montelukast Sodium (Singulair) 10 mg QHS PO Last administered on 04/30/18 20:53; Admin Dose 10 MG; Start 04/02/18 at 21:00 Nitroglycerin (Nitroglycerin (Sl Tab) 0.4 Mg) 1 tab Q5M PRN SL CHEST PAIN; Start 04/02/18 at 20:00 Pantoprazole (Protonix Tab) 40 mg AC BREAKFAST DINNER PO Last administered on 05/01/18 06:07; Admin Dose 40 MG; Start 04/03/18 at 07:00 Paroxetine HCl (Paxil) 40 mg BID PO Last administered on 05/01/18 08:23; Admin Dose 40 MG; Start 04/02/18 at 21:00 Quetiapine Fumarate (Seroquel) 25 mg BID PO Last administered on 05/01/18 08:22; Admin Dose 25 MG; Start 04/02/18 at 21:00 IV Flush (NS 10 ml) 10 ml PRN PRN IV FLUSH LINE; Start 04/05/18 at 14:00 Heparin Sodium (Porcine) (Heparin (5000 Units/1ml)) 5,000 unit Q8 SC Last administered on 2/16/19at 06:07; Admin Dose 5,000 UNIT; Start 04/05/18 at 22:00 Lisinopril (Zestril) 5 mg DAILY PO Last administered on 05/01/18at 08:22; Admin Dose 5 MG; Start 04/10/18 at 10:00 Metoprolol Succinate (Toprol Xl) 50 mg DAILY PO Last administered on 05/01/18at 08:24; Admin Dose 50 MG; Start 04/24/18 at 10:30 ROSALINA CONTRERAS May 01, 2018 10:47
[2018-05-01 15:03] VITALS: BP 108/57; PULSE 83; RESP 18
--- NOTE | 2018-05-01 18:06 | NUR ---
No acute changes during shift. Pt safe and free from injury. Pt checked for incontinence and repositioned Q2H. Pt denies pain. No signs of discomfort or distress. No SOB. Pt currently sitting in bed comfortably eating. Bed alarm on, call light within reach. Will continue to monitor.
[2018-05-01 20:00] VITALS: BP 104/59; PULSE 78; RESP 18
[2018-05-01] MEDS: MONTELUKAST 10 MG TAB PO SCH (21:33)
[2018-05-01] MEDS: ACETAMINOPHEN 325 MG TAB PO PRN (21:37)
[2018-05-02 02:00] VITALS: BP 114/64; PULSE 83; RESP 18
--- NOTE | 2018-05-02 03:45 | NUR ---
RN Notes No changes in condition noted overnight. Patient did verbalize mild pain to generalized body. Tylenol administered and medication effective upon reassessment. Patient kept clean, dry and comfortable throughout shift. Repositioned every two hours and incontinent care rendered as needed. Patient had x 1 large bowel movement during shift. Hourly rounding done. Patient's bed kept at lowest position and call light within reach. Bed alarm activated for safety. Will continue to monitor and endorse accordingly.
[2018-05-02] MEDS: HEPARIN 5,000 UNIT/1 ML VIAL SC SCH ×3 (05:24→21:36)
[2018-05-02] MEDS: PANTOPRAZOLE (EC) 40 MG TAB PO SCH ×2 (05:24→18:42)
[2018-05-02] MEDS: ACETAMINOPHEN 325 MG TAB PO PRN (05:26)
[2018-05-02 08:25] VITALS: BP 123/68; PULSE 83; RESP 18
[2018-05-02] MEDS: DOCUSATE SODIUM 100 MG CAP PO SCH ×2 (08:35→21:18)
[2018-05-02] MEDS: PAROXETINE 20 MG TAB PO SCH ×2 (08:35→21:18)
[2018-05-02] MEDS: MEMANTINE 10 MG TAB PO SCH (08:35)
[2018-05-02] MEDS: ANASTROZOLE 1 MG TAB PO SCH (08:35)
[2018-05-02] MEDS: METOPROLOL (XL) 50 MG TAB PO SCH (08:35)
[2018-05-02] MEDS: QUETIAPINE 25 MG TAB PO SCH ×2 (08:35→21:18)
[2018-05-02] MEDS: LISINOPRIL 5 MG TAB PO SCH (08:36)
[2018-05-02] MEDS: BALSAM PERU/CASTOR OIL 60 GM TUBE TOP SCH ×2 (08:37→21:19)
[2018-05-02 14:34] VITALS: BP 118/70; PULSE 80; RESP 17
--- NOTE | 2018-05-02 16:29 | PN ---
Date/Time of Note Date/Time of Note DATE: 05/02/18 TIME: 16:28 Assessment/Plan VTE Prophylaxis Risk score (from Nsg)>0 risk: 8 SCD applied (from Nsg): Yes Pharmacological prophylaxis: heparin Lines/Catheters IV Catheter Type (from Nrsg): Saline Lock Urinary Cath still in place: No Assessment/Plan Hospital Course 87-year-old female with comorbidities including dementia, asthma, breast cancer who was at a [id number] facility and was brought to the emergency room secondary to sepsis with leukocytosis, febrile illness, and tachycardia, secondary to underlying urinary tract infection. Infection now resolved and she is awaiting placement at discharge. Sinus tachycardia: - Labs showing mild BENEDICTO and uremia. Holding lasix and will give another gentle fluid bolus UTI: - resolved, dc abx Asthma/COPD; - Brochodilators. Breathing at baseline Breast cancer. -Continue Arimidex. Irregular nodule with spiculated borders within the left upper lobe measuring 2.51.8 cm. -Possible neoplastic disease, provided the patient's underlying history of breast cancer. Cardiomyopathy. -Left ventricular ejection fraction of 30% with severe global left ventricular systolic dysfunction and severe right ventricular hypokinesis. -Cardiology following. -Continue ACEI. Beta stephen on board Pre-diabetes. -Hemoglobin A1C 5.9. -Random blood glucose within normal limits. Normocytic anemia. -Monitor H&H closely. Moderate protein-calorie malnutrition. -Dietary supplements. Prophylaxis: Heparin DC planning: Plan to discharge patient to [facility] when accepted Subjective 24 Hr Interval Summary Constitutional: no complaints Exam/Review of Systems Exam Vitals Vital Signs Date Temp Pulse Resp B/P (MAP) Pulse Ox O2 O2 Flow FiO2 Time Delivery Rate 05/02/18 98.0 80 17 118/70 94 Room Air 14:34 (86) Intake and Output 05/01/18 05/01/18 05/02/18 1515:00 23:00 07:00 IntakeIntake Total 660 ml 300 ml BalanceBalance 660 ml 300 ml Constitutional: alert Psych: confusion Respiratory: clear to auscultation Cardiovascular: regular rate and rhythm Gastrointestinal: soft; No distended Musculoskeletal: nl extremities to inspection Medications Medication Current Medications IV Flush (NS 3 ml) 3 ml PER PROTOCOL IV ; Start 04/02/18 at 20:00 Acetaminophen (Tylenol Tab) 650 mg Q6H PRN PO PAIN LEVEL 1-3 OR FEVER Last administered on 05/02/18 05:26; Admin Dose 650 MG; Start 04/02/18 at 20:00 Alprazolam (Xanax) 0.5 mg BID PRN PO ANXIETY Last administered on 04/17/18 08:13; Admin Dose 0.5 MG; Start 04/02/18 at 20:00 Anastrozole (Arimidex) 1 mg DAILY PO Last administered on 05/02/18 08:35; Admin Dose 1 MG; Start 04/03/18 at 09:00 Docusate Sodium (Colace) 100 mg BID PO Last administered on 05/02/18 08:35; Admin Dose 100 MG; Start 04/02/18 at 21:00 Furosemide (Lasix) 40 mg DAILY PO Last administered on 04/24/18 08:31; Admin Dose 40 MG; Start 04/03/18 at 09:00; Status Hold Memantine (Namenda) 10 mg DAILY PO Last administered on 05/02/18 08:35; Admin Dose 10 MG; Start 04/03/18 at 09:00 Montelukast Sodium (Singulair) 10 mg QHS PO Last administered on 05/01/18 21:33; Admin Dose 10 MG; Start 04/02/18 at 21:00 Nitroglycerin (Nitroglycerin (Sl Tab) 0.4 Mg) 1 tab Q5M PRN SL CHEST PAIN; Start 04/02/18 at 20:00 Pantoprazole (Protonix Tab) 40 mg AC BREAKFAST DINNER PO Last administered on 05/02/18 05:24; Admin Dose 40 MG; Start 04/03/18 at 07:00 Paroxetine HCl (Paxil) 40 mg BID PO Last administered on 05/02/18 08:35; Admin Dose 40 MG; Start 04/02/18 at 21:00 Quetiapine Fumarate (Seroquel) 25 mg BID PO Last administered on 05/02/18 08:35; Admin Dose 25 MG; Start 04/02/18 at 21:00 IV Flush (NS 10 ml) 10 ml PRN PRN IV FLUSH LINE; Start 04/05/18 at 14:00 Heparin Sodium (Porcine) (Heparin (5000 Units/1ml)) 5,000 unit Q8 SC Last administered on 05/02/18 08:34; Admin Dose 5,000 UNIT; Start 04/05/18 at 22:00 Lisinopril (Zestril) 5 mg DAILY PO Last administered on 05/02/18at 08:36; Admin Dose 5 MG; Start 04/10/18 at 10:00 Metoprolol Succinate (Toprol Xl) 50 mg DAILY PO Last administered on 05/02/18 08:35; Admin Dose 50 MG; Start 04/24/18 at 10:30 ROSALINA CONTRERAS May 02, 2018 16:28
[2018-05-02 20:00] VITALS: BP 109/58; PULSE 88; RESP 17
[2018-05-02] MEDS: MONTELUKAST 10 MG TAB PO SCH (21:18)
[2018-05-03 02:00] VITALS: BP 100/58; PULSE 83; RESP 19
[2018-05-03] MEDS: HEPARIN 5,000 UNIT/1 ML VIAL SC SCH (05:41)
[2018-05-03] MEDS: PANTOPRAZOLE (EC) 40 MG TAB PO SCH (06:29)
--- NOTE | 2018-05-03 07:01 | NUR ---
End of shift report: Awake on bid in comfortable position. No sob. No resp distress. Afebrile. denies pain. Compliant with med. Turned and repositioned. Kept clean and dry. kept comfortable at all times/ No acute event overnight. Pending Placement c/o CM Awaiting acceptance from [facility]. Fall precaution implemented. Needs attended and anticipated. will cont with current POC. Will endorse accordingly.
[2018-05-03 08:11] VITALS: BP 116/66; PULSE 86; RESP 17
[2018-05-03] MEDS: ACETAMINOPHEN 325 MG TAB PO PRN (08:37)
[2018-05-03] MEDS: LISINOPRIL 5 MG TAB PO SCH (08:38)
[2018-05-03] MEDS: PAROXETINE 20 MG TAB PO SCH (08:38)
[2018-05-03] MEDS: QUETIAPINE 25 MG TAB PO SCH (08:39)
[2018-05-03] MEDS: ANASTROZOLE 1 MG TAB PO SCH (08:39)
[2018-05-03] MEDS: MEMANTINE 10 MG TAB PO SCH (08:39)
[2018-05-03] MEDS: METOPROLOL (XL) 50 MG TAB PO SCH (08:39)
[2018-05-03] MEDS: BALSAM PERU/CASTOR OIL 60 GM TUBE TOP SCH (08:40)
[2018-05-03] MEDS: DOCUSATE SODIUM 100 MG CAP PO SCH (08:40)
--- NOTE | 2018-05-03 12:07 | PN ---
Date/Time of Note Date/Time of Note DATE: 05/03/18 TIME: 12:06 Assessment/Plan VTE Prophylaxis Risk score (from Nsg)>0 risk: 8 SCD applied (from Nsg): Yes Pharmacological prophylaxis: LMWH Lines/Catheters IV Catheter Type (from Nrsg): Saline Lock Urinary Cath still in place: No Assessment/Plan Hospital Course 87-year-old female with comorbidities including dementia, asthma, breast cancer who was at a [facility] facility and was brought to the emergency room secondary to sepsis with leukocytosis, febrile illness, and tachycardia, secondary to underlying urinary tract infection. Infection now resolved and she is awaiting placement at discharge. Sinus tachycardia: - Labs showing mild BENEDICTO and uremia. Holding lasix and will give another gentle fluid bolus UTI: - resolved, dc abx Asthma/COPD; - Brochodilators. Breathing at baseline Breast cancer. -Continue Arimidex. Irregular nodule with spiculated borders within the left upper lobe measuring 2.51.8 cm. -Possible neoplastic disease, provided the patient's underlying history of breast cancer. Cardiomyopathy. -Left ventricular ejection fraction of 30% with severe global left ventricular systolic dysfunction and severe right ventricular hypokinesis. -Cardiology following. -Continue ACEI. Beta stephen on board Pre-diabetes. -Hemoglobin A1C 5.9. -Random blood glucose within normal limits. Normocytic anemia. -Monitor H&H closely. Moderate protein-calorie malnutrition. -Dietary supplements. Prophylaxis: Lovenox DC planning: Plan to discharge patient to [facility] when accepted Subjective 24 Hr Interval Summary Constitutional: no complaints Exam/Review of Systems Exam Vitals Vital Signs Date Temp Pulse Resp B/P (MAP) Pulse Ox O2 O2 Flow FiO2 Time Delivery Rate 05/03/18 98.5 86 17 116/66 94 Room Air 08:11 (83) Intake and Output 05/02/18 05/02/18 05/03/18 1515:00 23:00 07:00 IntakeIntake Total 100 ml 120 ml BalanceBalance 100 ml 120 ml Constitutional: alert Respiratory: clear to auscultation Cardiovascular: regular rate and rhythm Gastrointestinal: soft; No distended Musculoskeletal: nl extremities to inspection Medications Medication Current Medications IV Flush (NS 3 ml) 3 ml PER PROTOCOL IV ; Start 04/02/18 at 20:00 Acetaminophen (Tylenol Tab) 650 mg Q6H PRN PO PAIN LEVEL 1-3 OR FEVER Last administered on 05/03/18 08:37; Admin Dose 650 MG; Start 04/02/18 at 20:00 Alprazolam (Xanax) 0.5 mg BID PRN PO ANXIETY Last administered on 04/17/18 08:13; Admin Dose 0.5 MG; Start 04/02/18 at 20:00 Anastrozole (Arimidex) 1 mg DAILY PO Last administered on 05/03/18 08:39; Admin Dose 1 MG; Start 04/03/18 at 09:00 Docusate Sodium (Colace) 100 mg BID PO Last administered on 05/03/18 08:40; Admin Dose 100 MG; Start 04/02/18 at 21:00 Furosemide (Lasix) 40 mg DAILY PO Last administered on 04/24/18 08:31; Admin Dose 40 MG; Start 04/03/18 at 09:00; Status Hold Memantine (Namenda) 10 mg DAILY PO Last administered on 05/03/18 08:39; Admin Dose 10 MG; Start 04/03/18 at 09:00 Montelukast Sodium (Singulair) 10 mg QHS PO Last administered on 05/02/18 2 1:18; Admin Dose 10 MG; Start 04/02/18 at 21:00 Nitroglycerin (Nitroglycerin (Sl Tab) 0.4 Mg) 1 tab Q5M PRN SL CHEST PAIN; Sta rt 04/02/18 at 20:00 Pantoprazole (Protonix Tab) 40 mg AC BREAKFAST DINNER PO Last administered on 05/03/18 06:29; Admin Dose 40 MG; Start 04/03/18 at 07:00 Paroxetine HCl (Paxil) 40 mg BID PO Last administered on 05/03/18 08:38; Admin Dose 40 MG; Start 04/02/18 at 21:00 Quetiapine Fumarate (Seroquel) 25 mg BID PO Last administered on 05/03/18 08:39; Admin Dose 25 MG; Start 04/02/18 at 21:00 IV Flush (NS 10 ml) 10 ml PRN PRN IV FLUSH LINE; Start 04/05/18 at 14:00 Heparin Sodium (Porcine) (Heparin (5000 Units/1ml)) 5,000 unit Q8 SC Last administered on 05/03/18at 05:41; Admin Dose 5,000 UNIT; Start 04/05/18 at 22:00 Lisinopril (Zestril) 5 mg DAILY PO Last administered on 05/03/18at 08:38; Admin Dose 5 MG; Start 04/10/18 at 10:00 Metoprolol Succinate (Toprol Xl) 50 mg DAILY PO Last administered on 05/03/18at 08:39; Admin Dose 50 MG; Start 04/24/18 at 10:30 ROSALINA CONTRERAS May 03, 2018 12:07
[2018-05-03 14:33] VITALS: BP 125/71; PULSE 80; RESP 17
--- NOTE | 2018-05-03 14:34 | DS ---
Date/Time of Note Date/Time of Note DATE: 05/03/18 TIME: 14:31 Discharge Summary Admission/Discharge Info Admit Date/Time Apr 04, 2018 at 12:11 Discharge Date/Time May 03, 2018 Discharge Diagnosis 87-year-old female with comorbidities including dementia, asthma, breast cancer who was at a [id number] facility and was brought to the emergency room secondary to sepsis with leukocytosis, febrile illness, and tachycardia, secondary to underlying urinary tract infection. Infection now resolved Sinus tachycardia-resolved -Secondary to sepsis UTI: - resolved, status post Abx -Urine culture showed Pseudomonas Asthma/COPD; - Brochodilators. Breathing at baseline Breast cancer. -Continue Arimidex. Irregular nodule with spiculated borders within the left upper lobe measuring 2.51.8 cm. -Possible neoplastic disease, provided the patient's underlying history of breast cancer, patient with severe dementia Cardiomyopathy. -Left ventricular ejection fraction of 30% with severe global left ventricular systolic dysfunction and severe right ventricular hypokinesis. -Cardiology following. -Continue ACEI. Beta stephen on board, continue Lasix Pre-diabetes. -Hemoglobin A1C 5.9. -Random blood glucose within normal limits. Normocytic anemia. -Monitor H&H closely. Moderate protein-calorie malnutrition. -Dietary supplements. Patient Condition: Good Hospital Course Patient is a 87-year-old female with comorbidities including dementia, asthma, breast cancer who was at a [id number] facility and was brought to the emergency room secondary to sepsis with leukocytosis, febrile illness, and tachycardia, secondary to underlying urinary tract infection. Infection now resolved with antibiotics. Patient noted to have severe dementia and functional status is too poor to return to [facility] facility and hence case finisher arrange for placement in a nursing facility. Patient had a prolonged hospitalization due to placement issues, patient was ultimately placed in a halfway study. On day of discharge patient vitals, labs of exam are stable. Home Meds Active Scripts Levofloxacin* (Levaquin*) 500 Mg Tablet, 500 MG PO DAILY@06, #5 TAB Prov:PHILIP EUCEAD OIL FIELD EQUIPMENT MECHANIC 04/07/18 Megestrol Acetate (Megestrol Acetate) 400 Mg/10 Ml Oral.susp, 400 MG PO BID for 7 Days Prov:PHILIP EUCEDA OIL FIELD EQUIPMENT MECHANIC 04/07/18 Nitroglycerin* (Nitroglycerin* SL) 0.4 Mg Tab.subl, 1 TAB SL Q5M PRN for CHEST PAIN, #30 TAB Prov:PRESLEY MOSQUEDA 12/09/17 Lisinopril* (Lisinopril*) 5 Mg Tablet, 5 MG PO DAILY, #30 TAB Prov:PRESLEY MOSQUEDA 12/09/17 Reported Medications Acetaminophen (MAPAP) 325 Mg Tablet, 650 MG PO NEEDED, TAB 04/02/18 Furosemide* (Furosemide*) 40 Mg Tablet, 40 MG PO DAILY, TAB 04/02/18 Multivitamin/Iron/Folic Acid (Cerovite Advanced Form Tab) 1 Each Tablet, 1 EACH PO DAILY, TAB 04/02/18 Paroxetine Hcl* (Paroxetine*) 40 Mg Tablet, 40 MG PO BID, TAB 04/02/18 Dextran 70/Hypromellose (Artificial Tears) 1 Each Droperette, 1 EACH OP DAILY 11/04/17 Aspirin* (Aspirin* EC) 81 Mg Tablet.dr, 81 MG PO DAILY, TAB 11/04/17 Montelukast Sodium* (Montelukast Sodium*) 10 Mg Tablet, 10 MG PO QHS, #30 TAB 11/04/17 Donepezil* (Donepezil*) 5 Mg Tablet, 5 MG PO DAILY, #30 TAB 11/04/17 Memantine* (Namenda*) 10 Mg Tablet, 10 MG PO DAILY, #30 TAB 11/04/17 Oxybutynin Chloride* (Ditropan*) 5 Mg Tablet, 5 MG PO DAILY, TAB 11/04/17 Pantoprazole* (Pantoprazole*) 40 Mg Tablet.dr, 40 MG PO AC BREAKFAST DINNER, TAB 11/04/17 Anastrozole* (Arimidex*) 1 Mg Tablet, 1 MG PO DAILY, #30 TAB 11/04/17 Docusate Sodium* (Dok*) 100 Mg Tablet, 100 MG PO BID, #60 CAP 11/04/17 Quetiapine Fumarate* (Quetiapine Fumarate*) 25 Mg Tablet, 25 MG PO BID, TAB 11/04/17 Alprazolam* (Alprazolam*) 0.5 Mg Tablet, 0.5 MG PO BID PRN for ANXIETY, TAB 11/04/17 Follow-up Plan Follow-up with physicians at custodial Primary Care Provider Care Physician No Primary Time spent on discharge: > 30 minutes ROSALINA CONTRERAS May 03, 2018 14:34
--- NOTE | 2018-05-03 16:03 | NUR ---
DC TO [facility]. [phone] NOTIFIED PATIENT, AWAKE AND AGREED.TRIP # [id number] 5:45 PM OIL WELL PERFORATOR OPERATOR. Addendum: 05/03/18 at 1606 by KATHE DEL ROSARIO Amended: Links added.
--- NOTE | 2018-05-03 18:56 | NUR ---
RN NOTES Patient was seen by Dr Vivar with an order for discharge. Patient remained stable all throughout the shift, denies any pain or discomfort. Wound care done prior to discharge. Vital signs taken and recorded as follows BP 94/52, pulse 91, respirations 16, temperature 97.2, O2 saturations 97%. All belongings taken with none missing. Report given to Nurse Bassett at [facility]. Patient left in stable condition accompanied by 2 EMT personnel.
[2018-05-04] MEDS ORDERED: ENOXAPARIN 40 MG/0.4 ML SYG SC SCH (09:00)
== END 2018-05-03 18:20 | DRG 871 ==
LOC: E/R 16:38 → PP2 19:47 → OBSVTOIN 04-04 12:11
PROVIDERS: ADMIT Internal Medicine; ATTEND Internal Medicine
DX: A41.9 Sepsis, unspecified organism (principal); I50.23 Acute on chronic systolic (congestive) heart failure; J96.01 Acute respiratory failure with hypoxia; N39.0 Urinary tract infection, site not specified; I42.9 Cardiomyopathy, unspecified; J45.901 Unspecified asthma with (acute) exacerbation; E44.0 Moderate protein-calorie malnutrition; C78.00 Secondary malignant neoplasm of unspecified lung; F20.0 Paranoid schizophrenia; C50.919 Malignant neoplasm of unspecified site of unspecified female breast; F03.90 Unspecified dementia, unspecified severity, without behavioral disturbance, psychotic disturbance, mood disturbance, and anxiety; J44.9 Chronic obstructive pulmonary disease, unspecified; R62.7 Adult failure to thrive; Z68.29 Body mass index [BMI] 29.0-29.9, adult; D64.9 Anemia, unspecified; R73.03 Prediabetes; B96.5 Pseudomonas (aeruginosa) (mallei) (pseudomallei) as the cause of diseases classified elsewhere
CPT/HCPCS: 36415; 71045; 72192; 73550; 80048; 80053; 81001; 81003; 82150; 82962; 83036; 83605; 83690; 83735; 83880; 84100; 84484; 85025; 85610; 85730; 87040; 87081; 87086; 93005; 94664; 96374; 96375; 97110; 97162; 97530; G0378; J0696; J1644; J2270; J2405; J7030; J7040; P9612